=== PATIENT | female | born 1955 | race Caucasian/White ===

== ENCOUNTER 2016-07-05 19:58 | Emergency (ER) | payer MEDICARE, OTHER ==
[~2016-07-05] VITALS: Ht 142.2 cm; Wt 62.0 kg
[~2016-07-05 19:58] MED LIST: AMLO5TAB4 PO; ASPI-664 PO; CARV3.12 PO; CLOP75TA4 PO; CNC30T PO; FOLI-49 PO; GLIP5TAB13 PO; HYDR-3498 PO; HYDR200T39 PO; LEVO100T87 PO; NEPH PO; NITR0.4T6 SL; PANT40TA4 PO; ROSU5TAB5 PO; SEVE800T7 PO
[2016-07-05 20:04] VITALS: Ht 142.2 cm; Wt 62.0 kg
--- NOTE | 2016-07-05 20:49 | RADRPT ---
PROCEDURE: XR Chest AP portable CLINICAL INDICATION: Short of breath TECHNIQUE: An AP portable radiograph of the chest was submitted. COMPARISON: 06/08/2016 FINDINGS: Support Hardware: None Cardiovascular: There is again evidence of previous coronary artery bypass surgery. The heart size is decreased and is now normal. The aorta appears atherosclerotic and the piriform plantar vasculat ure is unremarkable. Lung Moreno: Infiltrate or atelectatic changes again seen within the lower lung zones bilaterally ag ain greater on the left on the right. Pleural Spaces: The left costophrenic angle remains obscured. A small left pleural fluid accumulati on cannot be excluded. There is no pneumothorax. Osseous Structures: The suboptimally visualized osseous elements are grossly intact. Soft Tissues: Endovascular stents are seen within the left innominate vein region and within the lef t axilla. IMPRESSION: 1. Previous coronary artery bypass surgery. 2. Decreased heart size which is now normal with atherosclerotic changes of the aorta again evident . 3. Atelectatic change are in infiltrates again seen within the lung bases, greater on the left on t he right. A small left pleural fluid accumulation can again not be excluded. 4. Endovascular stents are again seen in the left innominate vein and left axilla. Physician Rk Date Time Electronically viewed and signed by Physician Rk on 07/05/2016 20:49 /
[2016-07-05 21:15] LABS: INR 1.5; PROTIME 18.2 Sec (12.2-14.2); PT RATIO 1.4
[2016-07-05 21:16] LABS: PARTIAL THROMBOPLASTIN TIME 39.6 Sec (25.0-35.0)
[2016-07-05 21:20] LABS: CREATININE 5.55 mg/dl (0.44-1.00)
[2016-07-05 21:26] LABS: POTASSIUM 5.4 mmol/L (3.5-5.1)
[2016-07-05 21:29] LABS: BASOPHILS % 0.3 % (0.0-2.0); HEMATOCRIT 34.6 % (37.0-47.0); HEMOGLOBIN 11.5 g/dl (12.0-16.0); LYMPHOCYTES # 2.3 10^3/ul (0.8-2.9); LYMPHOCYTES % 19.6 % (15.0-51.0); MEAN CORPUSCULAR HEMOGLOBIN 30.5 pg (29.0-33.0); MEAN CORPUSCULAR HGB CONC 33.2 g/dl (32.0-37.0); MEAN CORPUSCULAR VOLUME 91.6 fl (82.0-101.0); MEAN PLATELET VOLUME 8.3 fl (7.4-10.4); MONOCYTE # 0.8 10^3/ul (0.3-0.9); MONOCYTES % 6.9 % (0.0-11.0); NEUTROPHIL # 8.4 10^3/ul (1.6-7.5); NEUTROPHILS % 73.2 % (39.0-77.0); PLATELET COUNT 223 10^3/UL (140-440); RED BLOOD COUNT 3.78 10^6/ul (4.20-5.40); RED CELL DISTRIBUTION WIDTH 19.7 % (11.5-14.5); TROPONIN-I 0.041 ng/ml (0.00-0.12); UNCORRECTED WBC 11.5 10^3/ul (4.8-10.8); WHITE BLOOD COUNT 11.5 10^3/ul (4.8-10.8)
[2016-07-05 21:37] LABS: CONDITION 1; LH ANALYZER COMMENTS 1
--- NOTE | 2016-07-05 22:05 | ERD ---
ER Documentation Chief Complaint Date/Time DATE: 07/05/16 TIME: 22:00 Chief Complaint SOB, denies CP, from [facility] BIB RA90 HPI This is a 61-year-old female who presents to the emergency room for evaluation of shortness of breath. She is denying any chest pain at this time, she does state she gets dialysis Wednesday, Wednesday, Wednesday, and is scheduled for dialysis at 4 AM tomorrow Wednesday, 06 July. This patient denies any fevers and came to the ER for evaluation. She does state that she has been drinking a lot of water over the weekend due to the fact that she has been getting lots of medication from her nursing facility. States oxygen helps her shortness of breath and this is happened to her previously and she has been relieved with dialysis. ROS All systems reviewed and are negative except as per history of present illness. Medications Home Meds Active Scripts Carvedilol* (Coreg*) 3.125 Mg Tab, 3.125 MG PO BID, #60 TAB Prov:MARINA ZEPEDA 08/28/15 Hydrocodone Bit-Acetaminophen* ([place]*) 5-325 Mg Tab, 1 TAB PO q6h Y for PAIN, # 30 TAB Prov:LELE STEELE MD 05/21/15 Reported Medications Sevelamer Carbonate* (Renvela*) 800 Mg Tablet, 0.8 GM PO WITH MEALS, #3 TAB 08/16/15 Rosuvastatin Calcium* (Crestor*) 5 Mg Tablet, 5 MG PO QHS, #30 TAB 08/16/15 Pantoprazole* (Pantoprazole*) 40 Mg Tablet.dr, 40 MG PO DAILY, TAB 05/03/15 Nitroglycerin* (Nitroglycerin* SL) 0.4 Mg Tab.subl, 0.4 MG SL Q5MIN Y for CHEST PAIN, BOTTLE 05/03/15 Levothyroxine Sodium* (Levothyroxine Sodium*) 100 Mcg Tablet, 100 MCG PO AC BREAKFAST, TAB 05/03/15 Glipizide* (Glipizide*) 5 Mg Tablet, 5 MG PO DAILY, TAB 05/03/15 Cinacalcet* (Sensipar*) 30 Mg Tab, 30 MG PO, TAB 05/03/15 Multivit/Ca Carb/B Cmplx/Fa* (Loretta-Owen*) 1 Tab Tab, 1 TAB PO DAILY, TAB 05/03/15 Hydroxychloroquine Sulfate* (Hydroxychloroquine Sulfate*) 200 Mg Tablet, 200 MG PO BID, TAB 05/03/15 Folic Acid* (Folic Acid*) 1 Mg Tablet, 1 MG PO DAILY, TAB 05/03/15 Clopidogrel Bisulfate* (Clopidogrel Bisulfate*) 75 Mg Tablet, 75 MG PO DAILY, TAB 05/03/15 Aspirin* (Aspirin* EC) 81 Mg Tablet.dr, 81 MG PO DAILY, TAB 05/03/15 Amlodipine Besylate* (Norvasc*) 5 Mg Tablet, 5 MG PO DAILY, TAB 05/03/15 Allergies Allergies: Coded Allergies: Penicillins (Verified Allergy, Intermediate, ITCHING/RASH, 06/08/16) methotrexate (Verified Allergy, Intermediate, ITCHING/RASH, 06/08/16) PMhx/Soc History of Surgery: Yes Anesthesia Reaction: No (UNKNOWN) Hx Neurological Disorder: No (UNKNOWN) Hx Respiratory Disorders: No (UNKNOWN) Hx Cardiac Disorders: Yes (HTN) Hx Psychiatric Problems: No (UNKNOWN) Hx Miscellaneous Medical Probl: Yes (HTN, DM 2, RENAL FAILURE) Hx Alcohol Use: No (UNKNOWN) Hx Substance Use: No Hx Tobacco Use: Yes Smoking Status: Current some day smoker Physical Exam Vitals Vital Signs Date Time Temp Pulse Resp B/P Pulse Ox O2 Delivery O2 Flow Rate FiO2 07/05/16 20:04 99.1 84 20 155/65 100 Physical Exam INITIAL VITAL SIGNS: Reviewed by me GENERAL: The patient is well developed, appears to be in mild respiratory distress when she is not on oxygen however on nasal cannula appears to be in no acute distress HEENT: Pupils equal, round, and reactive to light. EOMI. There is no scleral icterus. NECK: C-spine is soft and supple, there is no meningismus. There is no cervical lymphadenopathy. LUNGS: Bilateral rales auscultated in the lower lobes HEART: Regular rate and rhythm, no murmurs, clicks, rubs or gallops. ABDOMEN: Soft, non-tender, non-distended. There are bowel sounds in all four quadrants. No rebound or guarding. EXTREMITIES: There is no peripheral cyanosis or edema. No focal swelling or erythema. NEUROLOGICAL: The patient moves all four extremities with 5/5 strength. Cranial nerves II - XII are intact. Normal gait. Alert and oriented SKIN: There is no apparent rash or petechiae. HEME/LYMPHATIC: There is no evidence of excessive bruising or lymphedema. PSYCHIATRIC: The patient does not appear anxious or depressed. Result Diagram: 07/05/16205507/05/162055 Results 24 hrs Laboratory Tests Test 07/05/16 20:56 Activated Partial Thromboplast Time 39.6Sec Anion Gap 28 Basophils # 0.010^3/ul Basophils % 0.3% Blood Morphology Comment Blood Urea Nitrogen 72mg/dl Calcium Level 11.0mg/dl Carbon Dioxide Level 25mmol/L Chloride Level 93mmol/L Creatinine 5.55mg/dl Eosinophils # 0.010^3/ul Eosinophils % 0.0% Glucose Level 134mg/dl Hematocrit 34.6% Hemoglobin 11.5g/dl INR International Normalized Ratio 1.50 Lymphocytes # 2.310^3/ul Lymphocytes % 19.6% Mean Corpuscular Hemoglobin 30.5pg Mean Corpuscular Hemoglobin Concent 33.2g/dl Mean Corpuscular Volume 91.6fl Mean Platelet Volume 8.3fl Monocytes # 0.810^3/ul Monocytes % 6.9% Neutrophils # 8.410^3/ul Neutrophils % 73.2% Nucleated Red Blood Cells # 0.010^3/ul Nucleated Red Blood Cells % 0.0/100WBC Platelet Count 24436^3/UL Potassium Level 5.4mmol/L Prothrombin Time 18.2Sec Prothrombin Time Ratio 1.4 Red Blood Count 3.7810^6/ul Red Cell Distribution Width 19.7% Sodium Level 141mmol/L Troponin I 0.041ng/ml White Blood Count 11.510^3/ul Procedures/MDM EKG: Rate/Rhythm: [First-degree AV block] QRS, ST, T-waves: [No changes consistent w/ acute ischemia] Impression: First-degree AV block Chest X-ray 1V Interpreted by me: Soft Tissue: Atelectatic changes in the bilateral lower lobes, left-sided pleural effusion Bones: No acute abnormalities Mediastinum/Cardiac Silhouette/Lungs: [No acute abnormalities] This 61-year-old female presents to the emergency room for evaluation of shortness of breath. She does undergo dialysis Wednesday, Wednesday, Wednesday. She did undergo dialysis finances that she drink too much water due to too much medications. The patient did appear to have mild respiratory distress when she is off of oxygen, she is now scheduled for dialysis until 4 AM on July 06. I did try this patient off of oxygen and she was not tolerating it. I feel that her symptoms will be relieved with dialysis that she is fluid overloaded. This patient will be kept in the emergency room on oxygen until it is time for dialysis at that point she will be discharged with her family member will drive her to her dialysis center for further care Departure Diagnosis: Primary Impression: Shortness of breath Additional Impressions: Respiratory distress Fluid overload Condition: Stable CEM NAQVI DO Jul 05, 2016 22:05
[2016-07-05 22:08] VITALS: RESP 24
[2016-07-06 02:31] VITALS: BP 124/96; PULSE 80; TEMP 98.5
== END 2016-07-06 03:18 | disposition home or self-care (01) ==
LOC: E/R 19:58
DX: R06.02 Shortness of breath (principal); E87.70 Fluid overload, unspecified; E11.9 Type 2 diabetes mellitus without complications; I10 Essential (primary) hypertension; F17.210 Nicotine dependence, cigarettes, uncomplicated; Z79.82 Long term (current) use of aspirin; Z79.84 Long term (current) use of oral hypoglycemic drugs; Z99.2 Dependence on renal dialysis
CPT/HCPCS: 36415; 71010; 80048; 84484; 85025; 85610; 85730; 93005

== ENCOUNTER 2016-08-03 04:26 | Inpatient (IN) | payer MEDICARE, OTHER ==
[2016-08-03] VITALS (20 sets, daily range): BP systolic 108–133; BP diastolic 41–58; PULSE 49–82; RESP 13–25; TEMP 99.1; Ht 152.4 cm; Wt 61.0 kg
[~2016-08-03] VITALS: Ht 152.4 cm; Wt 61.0 kg
[2016-08-03] MEDS ORDERED: NITROGLYCERIN 2% 1 GM OINT PKT TD STA (04:28)
--- NOTE | 2016-08-03 05:04 | ERA ---
ER Documentation Chief Complaint Date/Time DATE: 08/03/16 TIME: 05:02 Chief Complaint CEDRIC [place] from dialysis center HPI This is a 61-year-old female comes in with complaints of shortness of breath dialysis center. She tolerated 30 minutes of dialysis before they called 911. Patient denies any chest pain. Denies any nausea vomiting. Denies any other current complaints. ROS All systems reviewed and are negative except as per history of present illness. Medications Home Meds Active Scripts Carvedilol* (Coreg*) 3.125 Mg Tab, 3.125 MG PO BID, #60 TAB Prov:MARINA ZEPEDA 08/28/15 Hydrocodone Bit-Acetaminophen* ([place]*) 5-325 Mg Tab, 1 TAB PO q6h Y for PAIN, # 30 TAB Prov:LELE STEELE MD 05/21/15 Reported Medications Sevelamer Carbonate* (Renvela*) 800 Mg Tablet, 0.8 GM PO WITH MEALS, #3 TAB 08/16/15 Rosuvastatin Calcium* (Crestor*) 5 Mg Tablet, 5 MG PO QHS, #30 TAB 08/16/15 Pantoprazole* (Pantoprazole*) 40 Mg Tablet.dr, 40 MG PO DAILY, TAB 05/03/15 Nitroglycerin* (Nitroglycerin* SL) 0.4 Mg Tab.subl, 0.4 MG SL Q5MIN Y for CHEST PAIN, BOTTLE 05/03/15 Levothyroxine Sodium* (Levothyroxine Sodium*) 100 Mcg Tablet, 100 MCG PO AC BREAKFAST, TAB 05/03/15 Glipizide* (Glipizide*) 5 Mg Tablet, 5 MG PO DAILY, TAB 05/03/15 Cinacalcet* (Sensipar*) 30 Mg Tab, 30 MG PO, TAB 05/03/15 Multivit/Ca Carb/B Cmplx/Fa* (Loretta-Owen*) 1 Tab Tab, 1 TAB PO DAILY, TAB 05/03/15 Hydroxychloroquine Sulfate* (Hydroxychloroquine Sulfate*) 200 Mg Tablet, 200 MG PO BID, TAB 05/03/15 Folic Acid* (Folic Acid*) 1 Mg Tablet, 1 MG PO DAILY, TAB 05/03/15 Clopidogrel Bisulfate* (Clopidogrel Bisulfate*) 75 Mg Tablet, 75 MG PO DAILY, TAB 05/03/15 Aspirin* (Aspirin* EC) 81 Mg Tablet.dr, 81 MG PO DAILY, TAB 05/03/15 Amlodipine Besylate* (Norvasc*) 5 Mg Tablet, 5 MG PO DAILY, TAB 05/03/15 Allergies Allergies: Coded Allergies: Penicillins (Verified Allergy, Intermediate, ITCHING/RASH, 06/08/16) methotrexate (Verified Allergy, Intermediate, ITCHING/RASH, 06/08/16) PMhx/Soc History of Surgery: Yes Anesthesia Reaction: No Hx Neurological Disorder: No Hx Respiratory Disorders: Yes (broncitis) Hx Cardiac Disorders: Yes (HTN,dyslipidemia,CAD w/ stents) Hx Psychiatric Problems: No Hx Miscellaneous Medical Probl: Yes (DM 2, RENAL FAILURE,lupus,hypothyroidism, HD MWF) Hx Alcohol Use: No Hx Substance Use: No Hx Tobacco Use: Yes Smoking Status: Former smoker Physical Exam Vitals Vital Signs Date Time Temp Pulse Resp B/P Pulse Ox O2 Delivery O2 Flow Rate FiO2 08/03/16 04:49 98 100 08/03/16 04:32 Non Rebreather 08/03/16 04:30 98.3 108 18 135/63 92 Physical Exam Const: [] Head: Atraumatic Eyes: Normal Conjunctiva ENT: Normal External Ears, Nose and Mouth. Neck: Full range of motion..~ No meningismus. Resp: Clear to auscultation bilaterally Cardio: Regular rate and rhythm, no murmurs Abd: Soft, non tender, non distended. Normal bowel sounds Skin: No petechiae or rashes Back: No midline or flank tenderness Ext: No cyanosis, or edema Neur: Awake and alert Psych: Normal Mood and Affect Results 24 hrs Current Medications Medications (Trade) Dose Ordered Sig/Jerry Route PRN Reason Start Time Stop Time Status Last Admin Dose Admin Nitroglycerin (Nitroglycerin 2% Oint) 1 inch ONCE STAT TD 08/03/16 04:28 08/03/16 04:30 DC Procedures/MDM EKG: Rate/Rhythm: [Normal Sinus Rhythm] QRS, ST, T-waves: [No changes consistent w/ acute ischemia] Impression: [No evidence of ischemia or arrhythmia] Chest X-ray 1V Interpreted by me: Soft Tissue: No acute abnormalities Bones: No acute abnormalities Mediastinum/Cardiac Silhouette/Lungs: Increased interstitial fluid markings. Impression: CHF Medical decision-making:Patient's heart failure symptoms is concerning for acute decompensation and will require inpatient workup and monitoring. Further w/u for ischemia, arrhythmia, PE or dissection will be deferred to the inpatient team. Accepting Care Team: Current data and ongoing care discussed. Time: 5 am Primary Provider: Dr. Mcdaniel who is on-call for Dr. Jimenez Consulting: [XOXOXO] Outstanding Data: none Critical Care: Time: 45 minutes Treatments/Evaluations: Close monitoring and treatment of unstable vital signs, cardiorespiratory, and neurologic status, while maintaining tight balance of fluid, respiratory, and cardiac interventions. Departure Diagnosis: Primary Impression: Pulmonary edema Qualified Code: J81.0 - Acute pulmonary edema Condition: Stable KATH OTTO Aug 03, 2016 05:04
--- NOTE | 2016-08-03 05:13 | RADRPT ---
PROCEDURE: Chest. CLINICAL INDICATION: Shortness of breath. TECHNIQUE: Single frontal view of the chest was obtained. COMPARISON: 07/05/2016. FINDINGS: Mediasternotomy wires are present. The cardiac silhouette is enlarged. The aortic arch is calcifie d. There are increased interstitial markings bilaterally. There is no pleural effusion. There is no pneumothorax. IMPRESSION: Bilateral increased interstitial markings could represent interstitial edema or infiltrates, increas ed compared with the prior study. Cardiomegaly and aortic atherosclerosis. .Raimundo To MD, MD Date Time Electronically viewed and signed by .Raimundo To MD, on 08/03/2016 05:13 .T/
[2016-08-03 05:55] LABS: BASOPHILS % 0.1 % (0.0-2.0); HEMATOCRIT 38.6 % (37.0-47.0); HEMOGLOBIN 13.1 g/dl (12.0-16.0); LYMPHOCYTES # 0.9 10^3/ul (0.8-2.9); LYMPHOCYTES % 9.5 % (15.0-51.0); MEAN CORPUSCULAR HEMOGLOBIN 31.4 pg (29.0-33.0); MEAN CORPUSCULAR VOLUME 92.3 fl (82.0-101.0); MEAN PLATELET VOLUME 8.8 fl (7.4-10.4); MONOCYTE # 0.6 10^3/ul (0.3-0.9); MONOCYTES % 5.9 % (0.0-11.0); NEUTROPHIL # 7.9 10^3/ul (1.6-7.5); NEUTROPHILS % 84.5 % (39.0-77.0); PLATELET COUNT 155 10^3/UL (140-440); RED BLOOD COUNT 4.18 10^6/ul (4.20-5.40); RED CELL DISTRIBUTION WIDTH 18.7 % (11.5-14.5); UNCORRECTED WBC 9.4 10^3/ul (4.8-10.8); WHITE BLOOD COUNT 9.4 10^3/ul (4.8-10.8)
[2016-08-03 05:57] LABS: CONDITION 1; LH ANALYZER COMMENTS 1
[2016-08-03 06:00] LABS: INR 1.5; PROTIME 18.2 Sec (12.2-14.2); PT RATIO 1.4
[2016-08-03 06:01] LABS: PARTIAL THROMBOPLASTIN TIME 36.4 Sec (25.0-35.0)
[2016-08-03 06:09] LABS: AADO2 Arterial 388.7 mmHg (7.0-24.0); Allen Test ACCEPTAB; Arterial Base Excess 4.4 mmol/L (-3.0-3); Arterial COHb 0.2 % (0.0-3.0); Arterial Fraction of Oxyhgb 98.9 % (93.0-99.0); Arterial HCO3 26.4 mmol/L (22.0-26.0); Arterial MetHb 0.2 % (0.0-1.5); Arterial Total Hemglobin 12.7 g/dl (12.0-18.0); Blood Gas IEPAP 18/5; Blood Gas PS 13; MODE MASK - BIPAP
[2016-08-03 06:14] LABS: TROPONIN-I 0.092 ng/ml (0.00-0.12)
[2016-08-03 06:42] LABS: ALBUMIN 3.5 g/dl (3.3-4.9); POTASSIUM 3.8 mmol/L (3.5-5.1)
[2016-08-03 06:44] LABS: CREATININE 4.51 mg/dl (0.44-1.00)
[2016-08-03 06:45] LABS: ALBUMIN/GLOBULIN RATIO 0.81; TOTAL PROTEIN 7.8 g/dl (6.1-8.1)
[2016-08-03 06:46] LABS: CALCIUM 8.4 mg/dl (8.4-10.2)
[2016-08-03] MEDS ORDERED: PROPOFOL 200 MG INJ ONE (07:00)
[2016-08-03] MEDS ORDERED: DEXTROSE 50% 50 ML SYRINGE ONE (09:46)
[2016-08-03] MEDS ORDERED: DEXTROSE 50% 50 ML SYRINGE IV ONE (10:00)
[2016-08-03] MEDS ORDERED: LORAZEPAM 2 MG INJ IV ONE (12:00)
[2016-08-03] MEDS ORDERED: GLUCAGON 1 MG INJ IM PRN (13:00)
[2016-08-03] MEDS ORDERED: VANCOMYCIN IV PER PHARMACY XX SCH (13:00)
[2016-08-03] MEDS ORDERED: DOCUSATE SODIUM 100 MG CAP PO PRN (13:00)
[2016-08-03] MEDS ORDERED: GLUCOSE GEL 15 GRAM TUBE BUCCAL PRN (13:00)
[2016-08-03] MEDS ORDERED: GLUCOSE GEL 15 GRAM TUBE PO PRN ×2 (13:00)
[2016-08-03] MEDS ORDERED: AZTREONAM 1 GM/NS (PMX) 50 ML IVPB SCH (13:00)
[2016-08-03] MEDS ORDERED: NITROGLYCERIN (SL) 0.4 MG TAB SL PRN (13:00)
[2016-08-03] MEDS ORDERED: NACL 0.9% 3 ML SYG IV SCH (13:00)
[2016-08-03] MEDS ORDERED: ONDANSETRON 4 MG INJ IV PRN (13:00)
[2016-08-03] MEDS ORDERED: VANCOMYCIN 1.25 GM in SOD CHLORIDE 0.9% 250 ML IVPB ONE (13:30)
--- NOTE | 2016-08-03 13:53 | HP ---
DATE OF ADMISSION: 08/03/2016 CHIEF COMPLAINT: Shortness of breath developed during hemodialysis. HISTORY OF PRESENT ILLNESS: The patient is a 61-year-old female known to me from previous admission . The patient with history of end-stage renal disease, hemodialysis dependent. The patient has his tory of lupus, diabetes, hypertension, peripheral vascular disease and history of sternal wound infe ction requiring wound VAC and debridement per last admission. The patient is a resident of [facility] facility. The patient was sent from hemodialysis center. The patient tolerated 30 minutes of hemodialysis and developed shortness of breath and was brought by ambulance to [facility] Emergency Room. The patient was started on BiPAP. Patient's chest x-ray revealed bilate ral increased interstitial markings which could represent interstitial edema and infiltrates, increa sed compared with the prior study, cardiomegaly and aortic atherosclerosis. The patient did not hav e any leukocytosis. The patient's temperature on admission was 99.1. The patient will be admitted for further evaluation and management to telemetry floor. PAST MEDICAL HISTORY: Per HPI. PAST SURGICAL HISTORY: Status post right upper extremity arteriovenous fistula, status post sternot tali possible CABG, details are not available in 2016 and status post debridement of sternal wound. FAMILY HISTORY: Noncontributory. SOCIAL HISTORY: Patient is a resident of [facility] facility. The patient denies any recent t obacco use, alcohol use or illicit drug use. ALLERGIES: PATIENT IS ALLERGIC TO: 1. PENICILLIN. 2. ANTIBIOTICS 3. METHOTREXATE. HOME MEDICATIONS: Includes: 1. Coreg. 2. [place]. 3. Renvela. 4. Crestor. 5. Protonix. 6. Nitroglycerin. 7. Levothyroxine. 8. Glipizide. 9. Sensipar. 10. Loretta-Owen. 11. Hydroxychloroquine. 12. Folic acid. 13. Plavix. 14. Aspirin 15. Norvasc. REVIEW OF SYSTEMS: A 12-point review of systems is negative unless what mentioned in the HPI. PHYSICAL EXAMINATION: GENERAL: Well-developed, well-nourished elderly female currently is lethargic, but easily arousable , awake alert to name and situation. VITAL SIGNS: Temperature is 99.1, pulse 87, blood pressure is 126/53, respiratory rate 26, oxygen s aturation is 100% on 50% nonrebreather mask. HEENT: Head is atraumatic, normocephalic. Pupils equal, round, reactive to light and accommodation . Oral mucosa is pink and moist. NECK: Supple, no cervical lymphadenopathy, no thyromegaly. CHEST: Lungs with diminished air entry bilaterally, inspiratory wheezes bilaterally and scattered r honchi. CARDIOVASCULAR: Normal S1, S2. No murmurs, gallops, clicks, rubs noted. ABDOMEN: Round, soft, nondistended, nontender. EXTREMITIES: Mild edema. No clubbing, cyanosis. Right upper extremity with arteriovenous fistula with palpable thrill and audible bruit. SKIN: There is no rash, petechiae noted. NEUROLOGIC: Patient is lethargic but easily arousable. No focal deficits noted. No focal deficits noted. Motor strength 5/5 in all extremities. LABORATORY DATA: On admission, CBC: White blood cells 9.4, hemoglobin 13.1, hematocrit 38.6, plate lets 155. Chemistry: Sodium 137, potassium 3.8, chloride 88, carbon dioxide 30, anion gap 23, BUN is 46, creatinine 4.51, glucose 98. ASSESSMENT: 1. Acute respiratory distress secondary to pulmonary edema and possible infiltrates. We will ask Christopher Morrissey to see patient in pulmonology consultation. Continue nonrebreather mask. Admit patient to telemetry, continue bronchodilators and oxygen supplementation. 2. Possible healthcare-acquired pneumonia. We will start patient on imipenem and vancomycin. 3. End-stage renal disease. We will ask Dr. Betts to see patient in nephrology consultation. Co ntinue to remove fluids with hemodialysis. 4. Diabetes mellitus with patient being hypoglycemic in the emergency room. Continue to monitor bl ood sugar closely. Patient is currently hypotensive. 5. Possible sepsis. Will obtain lactate. 6. Coronary artery disease. Continue Plavix and aspirin. 7. Lupus by history. Continue Plaquenil. 8. Hypothyroidism. We will obtain TSH. Continue Synthroid. 9. Hyperlipidemia. Continue Crestor. We will continue sequential compression device for deep veno us thrombosis prophylaxis and Protonix for peptic ulcer disease prophylaxis. Further recommendation s based on clinical course. Plan of care discussed with Dr. Hobbs. Dictated By: MARINA ZEPEDA FUNERAL ATTENDANT for VERENA HOBBS MD SR/NTS Conf#: [id number] [facility]#: [id number]
[2016-08-03] MEDS: AZTREONAM 0.5 GM in SOD CHLORIDE 0.9% 50 ML IV SCH (14:39)
--- NOTE | 2016-08-03 15:29 | CONS ---
DATE OF ADMISSION: 08/03/2016 DATE OF CONSULTATION: 08/03/2016 REASON FOR CONSULTATION: End-stage renal disease, shortness of breath. PHYSICIAN REQUESTING CONSULT: Dr. Rojo. HISTORY OF PRESENT ILLNESS: This is a 61-year-old female with a past medical history of end-stage r enal disease on dialysis Wednesday, Wednesday, Wednesday, history of lupus, diabetes, hypertension who pre sents to [facility] with shortness of breath. The patient was in the dialysis uni t when she became short of breath as a result after 30 minutes dialysis was canceled and the patient was transferred to the [facility] Emergency Room for evaluation. Upon arrival, the patien t had a chest x-ray performed which showed findings of increased interstitial markings representing possible edema or infiltrates. The patient's vitals on admission showed a blood pressure of 135/63, temperature 99. In the emergency room, the patient was also noted to be hypoglycemic with glucose level of 30. She was given dextrose as well as nitroglycerin paste. Upon my evaluation of the patient at this time, she is currently lethargic on nasal cannula. She is able to answer simple questions. She denies currently any nausea, vomiting, dysuria, hematuria, he moptysis, hematochezia. PAST MEDICAL HISTORY: As stated above, history of hypertension, history of lupus, end-stage renal d isease, diabetes, peripheral vascular disease, hypothyroidism. PAST SURGICAL HISTORY: Status post right and left upper extremity AV fistula. SOCIAL HISTORY: Does not drink, smoke or do drugs. FAMILY HISTORY: Noncontributory. MEDICATIONS: Have been reviewed. ALLERGIES: PATIENT IS ALLERGIC TO: 1. METHOTREXATE. 2. PENICILLIN. REVIEW OF SYSTEMS: A 14-point review of systems was conducted. Pertinent positives stated in HPI, otherwise negative. PHYSICAL EXAMINATION: VITAL SIGNS: Blood pressure is 135/76, respiration is 18, temperature 98.6. HEENT: Head is normocephalic. NECK: Supple. HEART: Regular rate. LUNGS: Show diminished breath sounds at the base. Positive rhonchi. ABDOMEN: Soft and nontender to palpation. No rebound or guarding. EXTREMITIES: Negative for clubbing, cyanosis. No edema. DERMATOLOGIC: No rashes. MUSCULOSKELETAL: No joint effusions. The patient does have an AV fistula in the right upper extrem ity with positive thrill and bruit and left upper extremity with positive thrill and bruit. NEUROLOGIC: No focal deficits. LABORATORY DATA: Shows a white count 9.4, hemoglobin 13.1, hematocrit 38.6, platelet count 155. So dium 137, potassium 3.8, chloride 88, BUN 46, creatinine 4.51, glucose level was 30, patient's ABG w as reviewed, shows a pH 7.54, pCO2 of 31. Chest x-ray as stated in HPI. ASSESSMENT AND PLAN: This is a 61-year-old female who presents with: 1. End-stage renal disease. The patient is on dialysis Wednesday, Wednesday, Wednesday with access of le ft upper extremity AV fistula. The patient's last full hemodialysis was Wednesday. The patient has on ly received 30 minutes of dialysis today at dialysis unit. Plan is to order hemodialysis today for 3 hours, 3 K bath, calcium 2.5, we will ultrafiltrate as tolerated. 2. Volume overload. The patient's chest x-ray shows possible interstitial edema. Plan is for dial ysis today with a goal ultrafiltration of 2 to 3 liters. 3. Mineral bone disorder. We will monitor calcium and phosphorus levels. We will continue the pat ient on Sensipar and phosphate binders. 4. Anemia of end-stage renal disease. Monitor H and H levels. We will give Epogen with hemodialys is. 5. Acute hypoxemic respiratory failure. Etiology is multifactorial, possibly due to edema, possibl e pneumonia. The patient is currently on broad spectrum antibiotics. We will continue. We will ul trafiltrate with hemodialysis as stated above, we will follow up cultures. 6. Diabetes, continue Accu-Cheks and sliding scale. 7. History of coronary artery disease. Continue current medical management. 8. History of lupus. Continue Plaquenil. 9. Hypothyroidism. Continue Synthroid. 10. Dyslipidemia. Continue statin therapy. Thank you, Dr. Rojo, for this interesting consultation. It will be a pleasure to follow patient with you throughout the hospital course. Dictated By: DELPHINE PURI/NTS Conf#: [id number] DID#: [id number]
--- NOTE | 2016-08-03 15:57 | CONS ---
DATE OF ADMISSION: 08/03/2016 DATE OF CONSULTATION: 08/03/2016 TYPE OF CONSULTATION: Pulmonary. REASON FOR CONSULTATION: Shortness of breath. Thank you, Dr. Rojo, for this consultation. HISTORY OF PRESENT ILLNESS: This is a 61-year-old lady with previous admissions to [facility] with a history of end-stage renal failure on hemodialysis, lupus, diabetes, hypertensio n, hyperlipidemia, and infected sternal wound came in with increasing shortness of breath, orthopnea during hemodialysis today with significant hypoxemia. Chest x-ray showed significant pulmonary edema. She was started on noninvasive positive pressure ventilation in our emergency room. PAST MEDICAL HISTORY: As above includes coronary artery bypass graft surgery with sternal wound inf ection. ALLERGIES: 1. PENICILLIN. 2. METHOTREXATE. SOCIAL HISTORY: She is a nonsmoker, no alcohol, no history of drug use. FAMILY HISTORY: Noncontributory. SYSTEMS REVIEW: A 12-point review of systems was negative other than that mentioned above. PHYSICAL EXAMINATION: GENERAL: Well-nourished, well-developed lady, comfortable at rest on BiPAP. VITAL SIGNS: Currently afebrile. Pulse is 85, blood pressure 123/53, O2 saturation 96% on 2 L nasa l cannula. NECK: Supple. No JVD or lymphadenopathy. CARDIAC: S1, S2, no added sounds or murmurs. CHEST: Diminished air entry bilaterally. ABDOMEN: Soft, nontender. No guarding or rebound. EXTREMITIES: No cyanosis, clubbing, edema. NEUROLOGIC: Generalized weakness. LABORATORY DATA: White count 9.4, hemoglobin 13.1, platelets 155, BUN 46, creatinine 4.51. ABG: p H 7.54, pCO2 of 31, PaO2 of 293. INR 1.1. DIAGNOSTIC DATA: Chest x-ray shows pulmonary edema. EKG shows no acute ischemic changes. IMPRESSION AND PLAN: 1. Acute hypoxemic respiratory failure, likely secondary to volume overload. 2. End-stage renal failure on hemodialysis. 3. History of coronary artery disease, questionable coronary ischemia. 4. History of diabetes. 5. History of hypertension. Patient will require: 1. Emergent hemodialysis with volume removal. 2. Noninvasive positive pressure ventilation. 3. Hypoxemic respiratory failure secondary to pulmonary edema. 4. Cardiology recommendations with echocardiogram and possible reevaluation of coronary grafts. 5. DVT and GI prophylaxis. Dictated By: JOY SANTOS/SAHRA Conf#: [id number] DID#: [id number]
[2016-08-03] MEDS: DEXTROSE 50% 50 ML SYRINGE IV PRN (16:19)
[2016-08-03] MEDS ORDERED: PROPOFOL 100 ML ONE (17:37)
[2016-08-03] MEDS: SEVELAMER CARBONATE 0.8 GM PKT PO SCH (18:00)
[2016-08-03] MEDS ORDERED: PROPOFOL 200 MG INJ IV ONE (18:00)
[2016-08-03] MEDS ORDERED: PROPOFOL 100 ML IV ONE (18:00)
[2016-08-03] MEDS: INSULIN ASPART [NOVOLOG] 3 ML PEN SC SCH ×2 (18:00→21:00)
[2016-08-03 18:23] LABS: AADO2 Arterial 138.9 mmHg (7.0-24.0); Arterial Base Excess 5.2 mmol/L (-3.0-3); Arterial COHb 0.4 % (0.0-3.0); Arterial Fraction of Oxyhgb 95.5 % (93.0-99.0); Arterial HCO3 30.6 mmol/L (22.0-26.0); Arterial MetHb 0.2 % (0.0-1.5); Arterial Total Hemglobin 12.8 g/dl (12.0-18.0); MODE VENT - AC
--- NOTE | 2016-08-03 19:28 | RADRPT ---
PROCEDURE: XR Chest. CLINICAL INDICATION: Post intubation. TECHNIQUE: Portable AP view of the chest was obtained. COMPARISON: 08/03/2016 FINDINGS: The cardiomediastinal silhouette is enlarged. Distal tip of the new endotracheal tube is projecting approximately 2.7 cm above the mukund. Bilateral basilar dominant atelectasis, pulmonary vascular congestion and small pleural effusions are again noted. Sternotomy wires compatible with prior CABG are again seen. Calcification of the aorta is visualized. RPTAT:HJJR IMPRESSION: 1. Distal tip of the new endotracheal tube is in satisfactory radiographic position approximately 2 .7 cm above the mukund. 2. Otherwise no interval change in diffuse pulmonary edema/infiltrates in this patient who is statu s post CABG. Physician Karrie Date Time Electronically viewed and signed by Physician Karrie on 08/03/2016 19:28 /
[2016-08-03] MEDS ORDERED: ACETAMINOPHEN 500 MG TAB PO PRN (20:00)
[2016-08-03] MEDS: ALBUMIN HUMAN 25% 100 ML IV PRN (20:53)
[2016-08-03] MEDS ORDERED: HEPARIN 5,000 UNIT/0.5 ML SYG SC SCH (21:00)
[2016-08-03] MEDS: SODIUM CHLORIDE 23.4% 77 MEQ in DEXTROSE 10% 1,000 ML IV SCH (21:22)
[2016-08-03] MEDS: PROPOFOL 100 ML IV SCH (21:24)
--- NOTE | 2016-08-03 22:02 | EN ---
Date/Time of Note Date/Time of Note DATE: 08/03/16 TIME: 21:59 Event Note Medicine Medicine Event Note Patient had been admitted to the hospital for respiratory failure and end-stage renal failure and was awaiting dialysis when her respiratory failure progressed to the point where she needed intubation. I was asked to intubate the patient. When they arrived to the room she was on BiPAP but was somnolent. She was difficult to arouse and clearly needed to be intubated to protect her airway. We immediately set up for intubation. Given the fact that she was a renal failure patient may decide use propofol for induction. Endotracheal Intubation by me: Pre assessment performed. See preceding note for details. Pre-oxygenation performed with 100% oxygen RSI: Performed w/o complication or hypoxic events. Medications as ordered. Blade: Mac 3 ET Tube: 7 cm Depth: 20 cm at the lip Intubation confirmed by colorimetric CO2, equal breath sounds, quiet over the stomach. Chest X-ray 1V Interpreted by me: 3 cm above the mukund ET tube. Normal soft tissue, No pneumothorax. Overall patient received 150 mg of propofol IV for induction. A propofol drip was ordered and titrated per protocol for the ventilator. Further treatment and evaluation was deferred per the admitting physician. JEFFRY ROCA Aug 03, 2016 22:02
[2016-08-04] VITALS (54 sets, daily range): BP systolic 93–157; BP diastolic 25–60; PULSE 62–120; RESP 14–42
--- NOTE | 2016-08-04 00:42 | RADRPT ---
AMENDMENT: 08/04/2016 12:45:09 AM Rod Iraheta MD ADDENDUM: COMPARISON: 08/03/2016 PROCEDURE: XR Chest. CLINICAL INDICATION: Nasogastric tube placement. TECHNIQUE: Single frontal view of the chest was obtained COMPARISON: None FINDINGS: Cardiomegaly and atherosclerotic calcifications in the thoracic aorta. Endotracheal intubation is s een with tip about 15 mm above the mukund. Nasogastric tube is seen with tip and side port off james om of the film. Bilateral patchy air space disease is increased over the interval. Discoid atelectasis versus dense consolidation in the left mid lung is likely without significant change. There is no pleural effusion or pneumothorax. Demineralization limits evaluation of fine osseous detail. Vascular stent in the region of the left axilla IMPRESSION: 1. Endotracheal intubation is again seen with tip about 15 mm above the mukund. 2. New nasogastric tube in place with tip and side port off the bottom of the film. 3. Cardiomegaly, with increased moderate failure. RPTAT: UU Physician Mariah Date Time Electronically viewed and signed by Physician Mariah on 08/04/2016 00:45 RS/
[2016-08-04] MEDS: HYDROXYCHLOROQUINE 200 MG TAB PO SCH ×3 (00:55→20:52)
[2016-08-04] MEDS: AZTREONAM 0.5 GM in SOD CHLORIDE 0.9% 50 ML IV SCH ×3 (00:56→20:51)
[2016-08-04] MEDS: ATORVASTATIN 20 MG TAB PO SCH ×2 (00:56→20:52)
[2016-08-04] MEDS: HEPARIN 5,000 UNIT/0.5 ML SYG SC SCH ×3 (00:58→20:56)
[2016-08-04] MEDS: PROPOFOL 100 ML IV SCH ×2 (03:44→20:58)
[2016-08-04] MEDS: PANTOPRAZOLE 40 MG INJ IV SCH (05:54)
[2016-08-04] MEDS ORDERED: PANTOPRAZOLE (EC) 40 MG TAB PO SCH (06:00)
--- NOTE | 2016-08-04 06:37 | RADRPT ---
PROCEDURE: XR Chest. CLINICAL INDICATION: Pneumonia TECHNIQUE: Portable single view of the chest COMPARISON: 06/03 FINDINGS: Endotracheal tube is 1.8 cm above the mukund and below the level of the clavicles. Nasogastric tube courses in the stomach off the radiographic field. Cardiomegaly, aortic calcification, pulmonary v ascular congestion, and bilateral alveolar infiltrates or edema are unchanged. IMPRESSION: No significant interval change. RPTAT: HLBE Gabriella Antoine Physician Date Time Electronically viewed and signed by Gabriella Antoine Physician on 08/04/2016 06:37 LE/
[2016-08-04 06:40] LABS: BASOPHILS % 0.1 % (0.0-2.0); HEMATOCRIT 33.8 % (37.0-47.0); HEMOGLOBIN 11.3 g/dl (12.0-16.0); LYMPHOCYTES # 1.7 10^3/ul (0.8-2.9); LYMPHOCYTES % 17.5 % (15.0-51.0); MEAN CORPUSCULAR HEMOGLOBIN 31.1 pg (29.0-33.0); MEAN CORPUSCULAR HGB CONC 33.5 g/dl (32.0-37.0); MEAN PLATELET VOLUME 8.3 fl (7.4-10.4); MONOCYTE # 0.6 10^3/ul (0.3-0.9); MONOCYTES % 6.3 % (0.0-11.0); NEUTROPHIL # 7.3 10^3/ul (1.6-7.5); NEUTROPHILS % 76.1 % (39.0-77.0); PLATELET COUNT 137 10^3/UL (140-440); RED BLOOD COUNT 3.63 10^6/ul (4.20-5.40); RED CELL DISTRIBUTION WIDTH 18.1 % (11.5-14.5); UNCORRECTED WBC 9.5 10^3/ul (4.8-10.8); WHITE BLOOD COUNT 9.5 10^3/ul (4.8-10.8)
[2016-08-04 06:56] LABS: PHOSPHORUS 2.8 mg/dl (2.5-4.9)
[2016-08-04 07:01] LABS: CREATININE 2.75 mg/dl (0.44-1.00)
[2016-08-04 07:02] LABS: CALCIUM 9.2 mg/dl (8.4-10.2)
[2016-08-04] MEDS: DEXTROSE 50% 50 ML SYRINGE IV PRN ×4 (07:09→22:47)
[2016-08-04 07:16] LABS: CONDITION 1; LH ANALYZER COMMENTS 1
[2016-08-04 07:27] LABS: THYROID STIMULATING HORMONE 3.21 MIU/L (0.465-4.680)
[2016-08-04] MEDS: INSULIN ASPART [NOVOLOG] 3 ML PEN SC SCH ×4 (07:35→20:41)
[2016-08-04 07:53] LABS: AADO2 Arterial 108.6 mmHg (7.0-24.0); Allen Test ACCEPTAB; Arterial Base Excess 7.5 mmol/L (-3.0-3); Arterial COHb 0.1 % (0.0-3.0); Arterial HCO3 31.7 mmol/L (22.0-26.0); Arterial MetHb 0.2 % (0.0-1.5); Arterial Total Hemglobin 11.3 g/dl (12.0-18.0); MODE VENT - AC
[2016-08-04] MEDS ORDERED: POTASSIUM CHLORIDE 250 ML IVPB ONE (08:00)
[2016-08-04] MEDS: MULTIVIT/CA CARB/B CMPLX/FA TAB PO SCH (08:28)
[2016-08-04] MEDS: ASPIRIN 81 MG TAB PO SCH (08:28)
[2016-08-04] MEDS: LEVOTHYROXINE 100 MCG TAB PO SCH (08:28)
[2016-08-04] MEDS: SEVELAMER CARBONATE 0.8 GM PKT PO SCH ×3 (08:28→18:28)
[2016-08-04] MEDS: CLOPIDOGREL 75 MG TAB PO SCH (08:28)
[2016-08-04] MEDS ORDERED: glipiZIDE 5 MG TAB PO SCH (09:00)
--- NOTE | 2016-08-04 11:29 | CONS ---
Date/Time of Note Date/Time of Note DATE: 08/04/16 TIME: 11:28 Consult Date/Type/Reason Admit Date/Time Aug 03, 2016 at 18:48 Initial Consult Date Type of Consultation: pulmonary Subjective patient remains intubated sedated on mechanical ventilation Objective Vital Signs Date Time Temp Pulse Resp B/P Pulse Ox O2 Delivery O2 Flow Rate FiO2 08/04/16 11:00 67 17 93/25 100 Mechanical Ventilator 08/04/16 09:52 30 08/04/16 08:00 97.9 08/03/16 14:00 3.0 Intake and Output 08/03/16 08/03/16 08/04/16 15:00 23:00 07:00 Intake Total 666.6 ml 450.52 ml Output Total 2500 ml 0 ml Balance -1833.4 ml 450.52 ml PHYSICAL EXAMINATION: GENERAL: Well-nourished, well-developed lady, on mechanical ventilation VITAL SIGNS: NECK: Supple. No JVD or lymphadenopathy. CARDIAC: S1, S2, no added sounds or murmurs. CHEST: Diminished air entry bilaterally. ABDOMEN: Soft, nontender. No guarding or rebound. EXTREMITIES: No cyanosis, clubbing, edema. NEUROLOGIC: Generalized weakness. Results/Medications Result Diagram: 08/04/16 0551 08/04/16 0551 Results 24 hrs Laboratory Tests Test 08/03/16 12:42 08/03/16 16:05 08/03/16 16:21 08/03/16 17:58 Bedside Glucose 93 39 *L 108 Arterial Blood HCO3 30.6 H Arterial Blood Base Excess 5.2 H Arterial Blood Oxygen Saturation 96.1 Keyur Test N/A Arterial Blood Gas Puncture Site Right Brachial Arterial Blood Carboxyhemoglobin 0.4 Arterial Blood Date Drawn 08/03/2016 6:13:40 PM Arterial Blood Methemoglobin 0.2 Arterial Blood pCO2 (Temp correct) 48.0 H Arterial Blood pH (Temp corrected) 7.422 Arterial Blood pO2 (Temp corrected) 91.1 Blood Gas A-a O2 Differential 138.9 H Blood Gas Actual Respiration Rate 15 Blood Gas Low PEEP Setting 5.0 Blood Gas Modality VENT - AC Blood Gas Notified Time 08/03/2016 6:23:22 PM Blood Gas Notified Whom M.D. Blood Gas Respiration Rate 14.0 Blood Gas Specimen Source Blood arterial Blood Gas Temperature 37.0 Blood Gas Tidal Volume 450.0 FiO2 40.0 Oxyhemoglobin Percent 95.5 Total Hemoglobin 12.8 Test 08/03/16 18:06 08/03/16 19:00 08/03/16 20:51 08/03/16 22:04 Bedside Glucose 91 74 95 Lactic Acid Level 1.3 Test 08/03/16 23:04 08/04/16 05:51 08/04/16 07:00 08/04/16 07:06 Bedside Glucose 152 33 *L Anion Gap 19 H Basophils # 0.0 Basophils % 0.1 Blood Morphology Comment Blood Urea Nitrogen 23 #H Calcium Level 9.2 Carbon Dioxide Level 30 Chloride Level 92 L Creatinine 2.75 #H Eosinophils # 0.0 Eosinophils % 0.0 Glucose Level 25 #*L Hematocrit 33.8 L Hemoglobin 11.3 L Hemoglobin A1c 4.9 Lactic Acid Level 1.4 Lymphocytes # 1.7 Lymphocytes % 17.5 Magnesium Level 2.0 Mean Corpuscular Hemoglobin 31.1 Mean Corpuscular Hemoglobin Concent 33.5 Mean Corpuscular Volume 93.0 Mean Platelet Volume 8.3 Monocytes # 0.6 Monocytes % 6.3 Neutrophils # 7.3 Neutrophils % 76.1 Nucleated Red Blood Cells # 0.0 Nucleated Red Blood Cells % 0.0 Phosphorus Level 2.8 Platelet Count 137 L Potassium Level 3.0 L Prealbumin 9.7 L Red Blood Count 3.63 L Red Cell Distribution Width 18.1 H Sodium Level 138 Thyroid Stimulating Hormone (TSH) 3.210 White Blood Count 9.5 Arterial Blood HCO3 31.7 H Arterial Blood Base Excess 7.5 H Arterial Blood Oxygen Saturation 98.3 H Keyur Test ACCEPTAB Arterial Blood Gas Puncture Site Right Radial Arterial Blood Carboxyhemoglobin 0.1 Arterial Blood Date Drawn 08/04/2016 7:20:18 AM Arterial Blood Methemoglobin 0.2 Arterial Blood pCO2 (Temp correct) 42.9 Arterial Blood pH (Temp corrected) 7.486 H Arterial Blood pO2 (Temp corrected) 127.3 H Blood Gas A-a O2 Differential 108.6 H Blood Gas Actual Respiration Rate 14 Blood Gas Low PEEP Setting 5.0 Blood Gas Modality VENT - AC Blood Gas Notified Time 08/04/2016 7:53:24 AM Blood Gas Notified Whom JLD Blood Gas Respiration Rate 14.0 Blood Gas Specimen Source Blood arterial Blood Gas Temperature 37.0 Blood Gas Tidal Volume 450.0 FiO2 40.0 Oxyhemoglobin Percent 98.0 Total Hemoglobin 11.3 L Test 08/04/16 07:47 08/04/16 08:03 08/04/16 11:18 Bedside Glucose 127 111 48 *L Medications Current Medications Ondansetron HCl (Zofran Inj) 4 mg Q6H PRN IV NAUSEA AND/OR VOMITING; Start 08/03 at 13:00 Aspirin (Aspirin) 81 mg DAILY PO Last administered on 08/04/16 08:28; Admin Dose 81 MG; Start 08/04/16 at 09:00 Clopidogrel Bisulfate (plaVIX) 75 mg DAILY PO Last administered on 08/04/16 08: 28; Admin Dose 75 MG; Start 08/04/16 at 09:00 Nitroglycerin (Nitroglycerin (Sl Tab) 0.4 Mg) 1 tab Q5M PRN SL CHEST PAIN; Start 08/03/16 at 13:00 Acetaminophen (Tylenol Tab) 650 mg Q6H PRN PO PAIN LEVEL 1-3 OR FEVER; Start at 13:00 Docusate Sodium (Colace) 100 mg Q12H PRN PO CONSTIPATION; Start 08/03/16 at 13: 00 Pantoprazole (Protonix Iv) 40 mg DAILY@06 IV Last administered on 08/04/16 05: 54; Admin Dose 40 MG; Start 08/04/16 at 06:00 Heparin Sodium (Porcine) (Heparin (5000 Units/0.5 ml)) 5,000 unit Q12 SC Last administered on 08/04/16 08:29; Admin Dose 5,000 UNIT; Start 08/03/16 at 21:00 Hydroxychloroquine Sulfate (Plaquenil) 200 mg BID PO Last administered on 08:28; Admin Dose 200 MG; Start 08/03/16 at 21:00 Multivit/Ca Carb/ B Cmplx/FA/Prenat (Loretta-Owen) 1 tab DAILY PO Last administered on 08/04/16 08:28; Admin Dose 1 TAB; Start 08/04/16 at 09:00 Atorvastatin Calcium (Lipitor) 20 mg DAILY@21 PO Last administered on 08/04/16 00:56; Admin Dose 20 MG; Start 08/03/16 at 21:00 Miscellaneous Information 1 ea NOTE XX ; Start 08/03/16 at 13:00 Glucose (Glutose) 15 gm Q15M PRN PO DECREASED GLUCOSE; Start 08/03/16 at 13:00 Glucose (Glutose) 22.5 gm Q15M PRN PO DECREASED GLUCOSE; Start 08/03/16 at 13:00 Dextrose (D50w Syringe) 25 ml Q15M PRN IV DECREASED GLUCOSE Last administered on 08/04/16 11:21; Admin Dose 50 ML; Start 08/03/16 at 13:00 Dextrose (D50w Syringe) 50 ml Q15M PRN IV DECREASED GLUCOSE Last administered on 08/04/16 07:09; Admin Dose 50 ML; Start 08/03/16 at 13:00 Glucagon (Glucagen) 1 mg Q15M PRN IM DECREASED GLUCOSE; Start 08/03/16 at 13:00 Glucose 15 gm 15 gm Q15M PRN BUCCAL DECREASED GLUCOSE; Start 08/03/16 at 13:00 Aztreonam/Sodium Chloride (Azactam/NS) 50 ml @ 100 mls/hr Q12 IV Last administered on 08/04/16 08:28; Admin Dose 100 MLS/HR; Start 08/03/16 at 14:00 Acetaminophen 500 mg 500 mg Q4H PRN PO PAIN AND OR ELEVATED TEMP; Start at 20:00 Sodium Chloride 77 meq/Dextrose 1,019.25 ml @ 40 mls/hr Q24H IV Last administered on 08/03/16 21:22; Admin Dose 40 MLS/HR; Start 08/03/16 at 20:30 Propofol 100 ml @ 1.83 mls/hr Q12H IV Last administered on 08/04/16 03:44; Admin Dose 10.98 MLS/HR; Start 08/03/16 at 21:30 Potassium Chloride (KCl 40 MEQ/250 ML NS) 250 ml @ 62.5 mls/hr ONCE ONCE IVPB Last administered on 08/04/16 08:28; Admin Dose 62.5 MLS/HR; Start 08/04/16 at 08:00; Stop 08/04/16 at 11:59 Assessment/Plan Chief Complaint/Hosp Course IMPRESSION AND PLAN: 1. Acute hypoxemic respiratory failure, likely secondary to volume overload. 2. End-stage renal failure on hemodialysis. 3. History of coronary artery disease, questionable coronary ischemia. 4. History of diabetes. 5. History of hypertension. Patient will require: 1. Emergent hemodialysis with volume removal. 2. Continue mechanical ventilation, CPAP weaning trial 3. Hypoxemic respiratory failure secondary to pulmonary edema. 4. Cardiology recommendations with echocardiogram and possible reevaluation of coronary grafts. 5. DVT and GI prophylaxis. Problems: JOY ROBERTS MD, [facility] Aug 04, 2016 11:29
[2016-08-04] MEDS: ALBUMIN HUMAN 25% 100 ML IV PRN (12:17)
--- NOTE | 2016-08-04 13:55 | PN ---
Date/Time of Note Date/Time of Note DATE: 08/04/16 TIME: 13:46 Assessment/Plan VTE Prophylaxis VTE Prophylaxis Intervention: heparin, SCD's Lines/Catheters IV C[facility] Type (from [facility] Peripheral IV Urinary Cath still in place: No Assessment/Plan Chief Complaint/Hosp Course ASSESSMENT: 1. Acute respiratory distress secondary to pulmonary edema and possible infiltrates. Dr. Morrissey is following in pulmonology consultation. Continue ventilator support. 2. Possible healthcare-acquired pneumonia. Continue aztreonam and vancomycin. 3. End-stage renal disease. Dr. Quintanilla following from nephrology standpoint. Continue hemodialysis. 4. Diabetes mellitus with patient being hypoglycemic. Continue to monitor blood sugar closely. Continue IV fluids with dextrose. 5. Possible sepsis. Continue antibiotics. Follow up on cultures. 6. Coronary artery disease. Continue Plavix and aspirin. 7. Lupus by history. Continue Plaquenil. 8. Hypothyroidism. TSH is 3.2. Continue Synthroid. 9. Hyperlipidemia. Continue Crestor. Continue sequential compression device for deep venous thrombosis prophylaxis and Protonix for peptic ulcer disease prophylaxis. Further recommendations based on clinical course. Plan of care discussed with Dr. Rojo. Problems: Subjective 24 Hr Interval Summary Free Text/Dictation Patient is orally intubated on vent support, sedated on propofol, currently undergoing hemodialysis,hypoglycemic episode, continued on D10 IV fluids Exam/Review of Systems Vital Signs Vitals Vital Signs Date Time Temp Pulse Resp B/P Pulse Ox O2 Delivery O2 Flow Rate FiO2 08/04/16 13:30 68 08/04/16 11:40 20 100 30 08/04/16 11:00 93/25 Mechanical Ventilator 08/04/16 08:00 97.9 08/03/16 14:00 3.0 Intake and Output 08/03/16 08/03/16 08/04/16 15:00 23:00 07:00 Intake Total 666.6 ml 450.52 ml Output Total 2500 ml 0 ml Balance -1833.4 ml 450.52 ml Exam GENERAL: Well-developed, well-nourished elderly female orally intubated on vent support HEENT: Head is atraumatic, normocephalic. Pupils equal, round, reactive to light and accommodation. Oral mucosa is pink and moist. NECK: Supple, no cervical lymphadenopathy, no thyromegaly. CHEST: Lungs with diminished air entry bilaterally, inspiratory wheezes bilaterally and scattered rhonchi. CARDIOVASCULAR: Normal S1, S2. No murmurs, gallops, clicks, rubs noted. ABDOMEN: Round, soft, nondistended, nontender. EXTREMITIES: Mild edema. No clubbing, cyanosis. Right upper extremity with arteriovenous fistula with palpable thrill and audible bruit. SKIN: There is no rash, petechiae noted. NEUROLOGIC: Sedated Results Result Diagram: 08/04/16 0551 08/04/16 0551 Results 24 hrs Laboratory Tests Test 08/03/16 16:05 08/03/16 16:21 08/03/16 17:58 08/03/16 18:06 Bedside Glucose 39 *L 108 91 Arterial Blood HCO3 30.6 H Arterial Blood Base Excess 5.2 H Arterial Blood Oxygen Saturation 96.1 Keyur Test N/A Arterial Blood Gas Puncture Site Right Brachial Arterial Blood Carboxyhemoglobin 0.4 Arterial Blood Date Drawn 08/03/2016 6:13:40 PM Arterial Blood Methemoglobin 0.2 Arterial Blood pCO2 (Temp correct) 48.0 H Arterial Blood pH (Temp corrected) 7.422 Arterial Blood pO2 (Temp corrected) 91.1 Blood Gas A-a O2 Differential 138.9 H Blood Gas Actual Respiration Rate 15 Blood Gas Low PEEP Setting 5.0 Blood Gas Modality VENT - AC Blood Gas Notified Time 08/03/2016 6:23:22 PM Blood Gas Notified Whom M.D. Blood Gas Respiration Rate 14.0 Blood Gas Specimen Source Blood arterial Blood Gas Temperature 37.0 Blood Gas Tidal Volume 450.0 FiO2 40.0 Oxyhemoglobin Percent 95.5 Total Hemoglobin 12.8 Test 08/03/16 19:00 08/03/16 20:51 08/03/16 22:04 08/03/16 23:04 Lactic Acid Level 1.3 Bedside Glucose 74 95 152 Test 08/04/16 05:51 08/04/16 07:00 08/04/16 07:06 08/04/16 07:47 Anion Gap 19 H Basophils # 0.0 Basophils % 0.1 Blood Morphology Comment Blood Urea Nitrogen 23 #H Calcium Level 9.2 Carbon Dioxide Level 30 Chloride Level 92 L Creatinine 2.75 #H Eosinophils # 0.0 Eosinophils % 0.0 Glucose Level 25 #*L Hematocrit 33.8 L Hemoglobin 11.3 L Hemoglobin A1c 4.9 Lactic Acid Level 1.4 Lymphocytes # 1.7 Lymphocytes % 17.5 Magnesium Level 2.0 Mean Corpuscular Hemoglobin 31.1 Mean Corpuscular Hemoglobin Concent 33.5 Mean Corpuscular Volume 93.0 Mean Platelet Volume 8.3 Monocytes # 0.6 Monocytes % 6.3 Neutrophils # 7.3 Neutrophils % 76.1 Nucleated Red Blood Cells # 0.0 Nucleated Red Blood Cells % 0.0 Phosphorus Level 2.8 Platelet Count 137 L Potassium Level 3.0 L Prealbumin 9.7 L Red Blood Count 3.63 L Red Cell Distribution Width 18.1 H Sodium Level 138 Thyroid Stimulating Hormone (TSH) 3.210 White Blood Count 9.5 Arterial Blood HCO3 31.7 H Arterial Blood Base Excess 7.5 H Arterial Blood Oxygen Saturation 98.3 H Keyur Test ACCEPTAB Arterial Blood Gas Puncture Site Right Radial Arterial Blood Carboxyhemoglobin 0.1 Arterial Blood Date Drawn 08/04/2016 7:20:18 AM Arterial Blood Methemoglobin 0.2 Arterial Blood pCO2 (Temp correct) 42.9 Arterial Blood pH (Temp corrected) 7.486 H Arterial Blood pO2 (Temp corrected) 127.3 H Blood Gas A-a O2 Differential 108.6 H Blood Gas Actual Respiration Rate 14 Blood Gas Low PEEP Setting 5.0 Blood Gas Modality VENT - AC Blood Gas Notified Time 08/04/2016 7:53:24 AM Blood Gas Notified Whom JLD Blood Gas Respiration Rate 14.0 Blood Gas Specimen Source Blood arterial Blood Gas Temperature 37.0 Blood Gas Tidal Volume 450.0 FiO2 40.0 Oxyhemoglobin Percent 98.0 Total Hemoglobin 11.3 L Bedside Glucose 33 *L 127 Test 08/04/16 08:03 08/04/16 11:18 08/04/16 11:53 08/04/16 12:35 Bedside Glucose 111 48 *L 158 132 Medications Medications Current Medications Ondansetron HCl (Zofran Inj) 4 mg Q6H PRN IV NAUSEA AND/OR VOMITING; Start 08/03 at 13:00 Aspirin (Aspirin) 81 mg DAILY PO Last administered on 08/04/16 08:28; Admin Dose 81 MG; Start 08/04/16 at 09:00 Clopidogrel Bisulfate (plaVIX) 75 mg DAILY PO Last administered on 08/04/16 08: 28; Admin Dose 75 MG; Start 08/04/16 at 09:00 Nitroglycerin (Nitroglycerin (Sl Tab) 0.4 Mg) 1 tab Q5M PRN SL CHEST PAIN; Start 08/03/16 at 13:00 Acetaminophen (Tylenol Tab) 650 mg Q6H PRN PO PAIN LEVEL 1-3 OR FEVER; Start at 13:00 Docusate Sodium (Colace) 100 mg Q12H PRN PO CONSTIPATION; Start 08/03/16 at 13: 00 Pantoprazole (Protonix Iv) 40 mg DAILY@06 IV Last administered on 08/04/16 05: 54; Admin Dose 40 MG; Start 08/04/16 at 06:00 Heparin Sodium (Porcine) (Heparin (5000 Units/0.5 ml)) 5,000 unit Q12 SC Last administered on 08/04/16 08:29; Admin Dose 5,000 UNIT; Start 08/03/16 at 21:00 Hydroxychloroquine Sulfate (Plaquenil) 200 mg BID PO Last administered on 08:28; Admin Dose 200 MG; Start 08/03/16 at 21:00 Multivit/Ca Carb/ B Cmplx/FA/Prenat (Loretta-Owen) 1 tab DAILY PO Last administered on 08/04/16 08:28; Admin Dose 1 TAB; Start 08/04/16 at 09:00 Atorvastatin Calcium (Lipitor) 20 mg DAILY@21 PO Last administered on 08/04/16 00:56; Admin Dose 20 MG; Start 08/03/16 at 21:00 Miscellaneous Information 1 ea NOTE XX ; Start 08/03/16 at 13:00 Glucose (Glutose) 15 gm Q15M PRN PO DECREASED GLUCOSE; Start 08/03/16 at 13:00 Glucose (Glutose) 22.5 gm Q15M PRN PO DECREASED GLUCOSE; Start 08/03/16 at 13:00 Dextrose (D50w Syringe) 25 ml Q15M PRN IV DECREASED GLUCOSE Last administered on 08/04/16 11:21; Admin Dose 50 ML; Start 08/03/16 at 13:00 Dextrose (D50w Syringe) 50 ml Q15M PRN IV DECREASED GLUCOSE Last administered on 08/04/16 07:09; Admin Dose 50 ML; Start 08/03/16 at 13:00 Glucagon (Glucagen) 1 mg Q15M PRN IM DECREASED GLUCOSE; Start 08/03/16 at 13:00 Glucose 15 gm 15 gm Q15M PRN BUCCAL DECREASED GLUCOSE; Start 08/03/16 at 13:00 Aztreonam/Sodium Chloride (Azactam/NS) 50 ml @ 100 mls/hr Q12 IV Last administered on 08/04/16 08:28; Admin Dose 100 MLS/HR; Start 08/03/16 at 14:00 Acetaminophen 500 mg 500 mg Q4H PRN PO PAIN AND OR ELEVATED TEMP; Start at 20:00 Sodium Chloride 77 meq/Dextrose 1,019.25 ml @ 40 mls/hr Q24H IV Last administered on 08/03/16 21:22; Admin Dose 40 MLS/HR; Start 08/03/16 at 20:30 Propofol (Diprivan) 100 ml @ 1.83 mls/hr Q12H IV Last administered on 03:44; Admin Dose 10.98 MLS/HR; Start 08/03/16 at 21:30 Miscellaneous Information (*Rx Drug Level Order Reminder*) 1 ONCE ONCE XX ; Start 08/05/16 at 05:00; Stop 08/05/16 at 05:01 MARINA ZEPEDA Aug 04, 2016 13:54
[2016-08-04] MEDS: ALBUTEROL 0.083% (NEB) 2.5 MG/3 ML AMP HHN PRN (23:08)
[2016-08-04] MEDS: IPRATROPIUM (NEB) 0.5 MG/2.5 ML AMP HHN PRN (23:08)
[2016-08-04 23:35] LABS: AADO2 Arterial 339.2 mmHg (7.0-24.0); Allen Test ACCEPTAB; Arterial Base Excess 3.2 mmol/L (-3.0-3); Arterial COHb 0.6 % (0.0-3.0); Arterial Fraction of Oxyhgb 82.8 % (93.0-99.0); Arterial HCO3 27.6 mmol/L (22.0-26.0); Arterial MetHb 0.2 % (0.0-1.5); Arterial Total Hemglobin 13.1 g/dl (12.0-18.0); MODE NEBULIZER TX
[2016-08-05] VITALS (36 sets, daily range): BP systolic 141–179; BP diastolic 45–62; PULSE 86–100; RESP 19–40
[2016-08-05] MEDS: hydrALAzine 20 MG INJ IV PRN ×2 (01:44→16:57)
[2016-08-05] MEDS: SODIUM CHLORIDE 23.4% 77 MEQ in DEXTROSE 10% 1,000 ML IV SCH ×2 (05:47→20:30)
[2016-08-05] MEDS: PANTOPRAZOLE 40 MG INJ IV SCH (05:51)
[2016-08-05 06:36] LABS: BASOPHIL # 0.1 10^3/ul (0.0-0.1); BASOPHILS % 0.5 % (0.0-2.0); HEMATOCRIT 34.5 % (37.0-47.0); HEMOGLOBIN 11.6 g/dl (12.0-16.0); LYMPHOCYTES # 1.1 10^3/ul (0.8-2.9); LYMPHOCYTES % 10.8 % (15.0-51.0); MEAN CORPUSCULAR HEMOGLOBIN 31.1 pg (29.0-33.0); MEAN CORPUSCULAR HGB CONC 33.5 g/dl (32.0-37.0); MEAN CORPUSCULAR VOLUME 92.9 fl (82.0-101.0); MEAN PLATELET VOLUME 8.6 fl (7.4-10.4); MONOCYTE # 0.6 10^3/ul (0.3-0.9); MONOCYTES % 6.3 % (0.0-11.0); NEUTROPHIL # 8.3 10^3/ul (1.6-7.5); NEUTROPHILS % 82.4 % (39.0-77.0); PLATELET COUNT 149 10^3/UL (140-440); RED BLOOD COUNT 3.72 10^6/ul (4.20-5.40); RED CELL DISTRIBUTION WIDTH 18.3 % (11.5-14.5); UNCORRECTED WBC 10.1 10^3/ul (4.8-10.8); WHITE BLOOD COUNT 10.1 10^3/ul (4.8-10.8)
[2016-08-05 06:46] LABS: CONDITION 1; LH ANALYZER COMMENTS 1
[2016-08-05 06:53] LABS: CREATININE 2.36 mg/dl (0.44-1.00)
[2016-08-05 06:54] LABS: CALCIUM 9.9 mg/dl (8.4-10.2); PHOSPHORUS 3.1 mg/dl (2.5-4.9)
[2016-08-05] MEDS: LEVOTHYROXINE 100 MCG TAB PO SCH ×2 (07:05→08:17)
--- NOTE | 2016-08-05 07:34 | RADRPT ---
PROCEDURE: XR Chest. CLINICAL INDICATION: Pneumonia. Congestive heart failure. TECHNIQUE: Portable single view of the chest COMPARISON: 08/04 FINDINGS: Endotracheal tube has been removed. Nasogastric tube remains in place. Cardiomegaly and aortic kendall cification. Lateral right lung infiltrate appears to have increased slightly. Left lung infiltrate is stable. Pulmonary vascular congestion and increased interstitial markings again seen. Left vas cular stent. IMPRESSION: Removal of endotracheal tube. Possibly increasing right lung infiltrate. RPTAT: HLBE Gabriella Antoine Physician Date Time Electronically viewed and signed by Gabriella Antoine Physician on 08/05/2016 07:34 RIVAS/
[2016-08-05] MEDS: INSULIN ASPART [NOVOLOG] 3 ML PEN SC SCH ×4 (07:35→21:00)
[2016-08-05] MEDS: SEVELAMER CARBONATE 0.8 GM PKT PO SCH ×3 (08:17→17:01)
[2016-08-05] MEDS: CLOPIDOGREL 75 MG TAB PO SCH (08:17)
[2016-08-05] MEDS: MULTIVIT/CA CARB/B CMPLX/FA TAB PO SCH (08:17)
[2016-08-05] MEDS: HYDROXYCHLOROQUINE 200 MG TAB PO SCH ×2 (08:17→21:12)
[2016-08-05] MEDS: ASPIRIN 81 MG TAB PO SCH (08:17)
[2016-08-05] MEDS: ACETAMINOPHEN 325 MG TAB PO PRN (08:18)
[2016-08-05] MEDS: HEPARIN 5,000 UNIT/0.5 ML SYG SC SCH ×2 (08:29→21:23)
[2016-08-05] MEDS: AZTREONAM 0.5 GM in SOD CHLORIDE 0.9% 50 ML IV SCH ×2 (08:38→21:11)
[2016-08-05 08:58] LABS: AADO2 Arterial 94.7 mmHg (7.0-24.0); Allen Test ACCEPTAB; Arterial COHb 0.8 % (0.0-3.0); Arterial Fraction of Oxyhgb 94.8 % (93.0-99.0); Arterial HCO3 26.9 mmol/L (22.0-26.0); Arterial MetHb 0 % (0.0-1.5); Arterial Total Hemglobin 12.1 g/dl (12.0-18.0); Blood Gas PS 10; MODE VENT - CPAP
--- NOTE | 2016-08-05 09:06 | CONS ---
Date/Time of Note Date/Time of Note DATE: 08/05/16 TIME: 09:04 Consult Date/Type/Reason Admit Date/Time Aug 03, 2016 at 18:48 Type of Consultation: pulmonary Subjective Awake alert oriented on BiPAP this morning Remains hemodynamic stable Nasogastric tube in place Objective Vital Signs Date Time Temp Pulse Resp B/P Pulse Ox O2 Delivery O2 Flow Rate FiO2 08/05/16 08:00 87 28 145/45 100 BIPAP 08/05/16 07:00 99.4 08/05/16 05:42 60 08/04/16 23:08 15.0 Intake and Output 08/04/16 08/04/16 08/05/16 15:00 23:00 07:00 Intake Total 608.56 ml 295 ml 459.5 ml Output Total 1500 ml 0 ml 0 ml Balance -891.44 ml 295 ml 459.5 ml GENERAL: Elderly lady appears comfortable at rest VITAL SIGNS: per chart NECK: Supple. No JVD or lymphadenopathy. CARDIAC EXAM: S1, S2. No added sounds or murmurs. CHEST: Diminished air entry bilaterally with expiratory wheezes ABDOMEN: Soft, nontender. No guarding or rebound. EXTREMITIES: No cyanosis, clubbing or edema. NEUROLOGIC: Generalized weakness. No focal deficits. Results/Medications Result Diagram: 08/05/16 0541 08/05/16 0541 Results 24 hrs Chest x-ray Ongoing pulmonary edema Laboratory Tests Test 08/04/16 11:18 08/04/16 11:53 08/04/16 12:35 08/04/16 17:56 Bedside Glucose 48 *L 158 132 Arterial Blood HCO3 26.9 H Arterial Blood Base Excess 4.0 H Arterial Blood Oxygen Saturation 95.6 Keyur Test ACCEPTAB Arterial Blood Gas Puncture Site Right Radial Arterial Blood Carboxyhemoglobin 0.8 Arterial Blood Date Drawn 08/04/2016 5:18:00 PM Arterial Blood Methemoglobin 0 Arterial Blood pCO2 (Temp correct) 34.7 L Arterial Blood pH (Temp corrected) 7.507 H Arterial Blood pO2 (Temp corrected) 78.4 L Blood Gas A-a O2 Differential 94.7 H Blood Gas Actual Respiration Rate 30 Blood Gas Low PEEP Setting 5.0 Blood Gas Modality VENT - CPAP Blood Gas Notified Time 08/04/2016 5:21:00 PM Blood Gas Notified Whom RT Blood Gas Pressure Support 10 Blood Gas Specimen Source Blood arterial Blood Gas Temperature 37.0 FiO2 30.0 Oxyhemoglobin Percent 94.8 Total Hemoglobin 12.1 Test 08/04/16 18:12 08/04/16 19:29 08/04/16 20:40 08/04/16 22:46 Bedside Glucose 57 L 88 73 68 L Test 08/04/16 23:05 08/04/16 23:10 08/05/16 05:41 08/05/16 08:16 Arterial Blood HCO3 27.6 H Arterial Blood Base Excess 3.2 H Arterial Blood Oxygen Saturation 83.5 L Keyur Test ACCEPTAB Arterial Blood Gas Puncture Site Right Radial Arterial Blood Carboxyhemoglobin 0.6 Arterial Blood Date Drawn 08/04/2016 11:25:25 PM Arterial Blood Methemoglobin 0.2 Arterial Blood pCO2 (Temp correct) 41.3 Arterial Blood pH (Temp corrected) 7.443 Arterial Blood pO2 (Temp corrected) 50.4 *L Blood Gas A-a O2 Differential 339.2 H Blood Gas Critical Value Read Back Emely BADILLO RN Blood Gas Modality NEBULIZER [place] Blood Gas Notified Time 08/04/2016 11:35:04 PM Blood Gas Notified Whom MG Blood Gas Specimen Source Blood arterial Blood Gas Temperature 37.0 FiO2 61.0 Oxyhemoglobin Percent 82.8 L Total Hemoglobin 13.1 Bedside Glucose 106 137 Anion Gap 17 H Basophils # 0.1 Basophils % 0.5 Blood Morphology Comment Blood Urea Nitrogen 17 Calcium Level 9.9 Carbon Dioxide Level 27 Chloride Level 98 Creatinine 2.36 H Eosinophils # 0.0 Eosinophils % 0.0 Glucose Level 140 # Hematocrit 34.5 L Hemoglobin 11.6 L Lymphocytes # 1.1 Lymphocytes % 10.8 L Magnesium Level 2.0 Mean Corpuscular Hemoglobin 31.1 Mean Corpuscular Hemoglobin Concent 33.5 Mean Corpuscular Volume 92.9 Mean Platelet Volume 8.6 Monocytes # 0.6 Monocytes % 6.3 Neutrophils # 8.3 H Neutrophils % 82.4 H Nucleated Red Blood Cells # 0.0 Nucleated Red Blood Cells % 0.0 Phosphorus Level 3.1 Platelet Count 149 Potassium Level 4.0 Random Vancomycin Level 14.1 Red Blood Count 3.72 L Red Cell Distribution Width 18.3 H Sodium Level 138 White Blood Count 10.1 Medications Current Medications Ondansetron HCl (Zofran Inj) 4 mg Q6H PRN IV NAUSEA AND/OR VOMITING; Start 08/03 at 13:00 Aspirin (Aspirin) 81 mg DAILY PO Last administered on 08/05/16 08:17; Admin Dose 81 MG; Start 08/04/16 at 09:00 Clopidogrel Bisulfate (plaVIX) 75 mg DAILY PO Last administered on 08/05/16 08: 17; Admin Dose 75 MG; Start 08/04/16 at 09:00 Nitroglycerin (Nitroglycerin (Sl Tab) 0.4 Mg) 1 tab Q5M PRN SL CHEST PAIN; Start 08/03/16 at 13:00 Acetaminophen (Tylenol Tab) 650 mg Q6H PRN PO PAIN LEVEL 1-3 OR FEVER Last administered on 08/05/16 08:18; Admin Dose 650 MG; Start 08/03/16 at 13:00 Docusate Sodium (Colace) 100 mg Q12H PRN PO CONSTIPATION; Start 08/03/16 at 13: 00 Pantoprazole (Protonix Iv) 40 mg DAILY@06 IV Last administered on 08/05/16 05: 51; Admin Dose 40 MG; Start 08/04/16 at 06:00 Heparin Sodium (Porcine) (Heparin (5000 Units/0.5 ml)) 5,000 unit Q12 SC Last administered on 08/05/16 08:29; Admin Dose 5,000 UNIT; Start 08/03/16 at 21:00 Hydroxychloroquine Sulfate (Plaquenil) 200 mg BID PO Last administered on 08:17; Admin Dose 200 MG; Start 08/03/16 at 21:00 Multivit/Ca Carb/ B Cmplx/FA/Prenat (Loretta-Owen) 1 tab DAILY PO Last administered on 08/05/16 08:17; Admin Dose 1 TAB; Start 08/04/16 at 09:00 Atorvastatin Calcium (Lipitor) 20 mg DAILY@21 PO Last administered on 08/04/16 20:52; Admin Dose 20 MG; Start 08/03/16 at 21:00 Miscellaneous Information 1 ea NOTE XX ; Start 08/03/16 at 13:00 Glucose (Glutose) 15 gm Q15M PRN PO DECREASED GLUCOSE; Start 08/03/16 at 13:00 Glucose (Glutose) 22.5 gm Q15M PRN PO DECREASED GLUCOSE; Start 08/03/16 at 13:00 Dextrose (D50w Syringe) 25 ml Q15M PRN IV DECREASED GLUCOSE Last administered on 08/04/16 22:47; Admin Dose 25 ML; Start 08/03/16 at 13:00 Dextrose (D50w Syringe) 50 ml Q15M PRN IV DECREASED GLUCOSE Last administered on 08/04/16 07:09; Admin Dose 50 ML; Start 08/03/16 at 13:00 Glucagon (Glucagen) 1 mg Q15M PRN IM DECREASED GLUCOSE; Start 08/03/16 at 13:00 Glucose 15 gm 15 gm Q15M PRN BUCCAL DECREASED GLUCOSE; Start 08/03/16 at 13:00 Aztreonam/Sodium Chloride (Azactam/NS) 50 ml @ 100 mls/hr Q12 IV Last administered on 08/05/16 08:38; Admin Dose 100 MLS/HR; Start 08/03/16 at 14:00 Acetaminophen 500 mg 500 mg Q4H PRN PO PAIN AND OR ELEVATED TEMP; Start at 20:00 Sodium Chloride 77 meq/Dextrose 1,019.25 ml @ 40 mls/hr Q24H IV Last administered on 08/05/16 05:47; Admin Dose 40 MLS/HR; Start 08/03/16 at 20:30 Propofol (Diprivan) 100 ml @ 1.83 mls/hr Q12H IV Last administered on 03:44; Admin Dose 10.98 MLS/HR; Start 08/03/16 at 21:30 Hydralazine HCl (Apresoline) 20 mg Q6H PRN IV ELEVATED SYSTOLIC BP Last administered on 08/05/16 01:44; Admin Dose 20 MG; Start 08/05/16 at 01:30 Lorazepam (Ativan) 0.5 mg Q6H PRN IV AGITATION/ANXIETY; Start 08/05/16 at 01:30 Assessment/Plan Chief Complaint/Hosp Course IMPRESSION AND PLAN: 1. Acute hypoxemic respiratory failure, likely secondary to volume overload. 2. End-stage renal failure on hemodialysis. 3. History of coronary artery disease, questionable coronary ischemia. 4. History of diabetes. 5. History of hypertension. Patient will require: 1. Emergent hemodialysis with volume removal. 2. Continue BiPAP, trial of nasal cannula oxygen 3. Aspiration precautions speech therapy evaluation 4. Cardiology recommendations with echocardiogram and possible reevaluation of coronary grafts. 5. DVT and GI prophylaxis. If she is stable off BiPAP she can be transferred to telemetry. Problems: JOY ROBERTS MD, [facility] Aug 05, 2016 09:06
[2016-08-05] MEDS: PROPOFOL 100 ML IV SCH ×2 (09:30→21:30)
[2016-08-05] MEDS ORDERED: VANCOMYCIN 750 MG in SOD CHLORIDE 0.9% 150 ML IVPB SCH (15:00)
--- NOTE | 2016-08-05 17:07 | PN ---
Date/Time of Note Date/Time of Note DATE: 08/05/16 TIME: 17:04 Assessment/Plan VTE Prophylaxis VTE Prophylaxis Intervention: SCD's Lines/Catheters IV [facility]from [facility] Peripheral IV Urinary Cath still in place: No Assessment/Plan Chief Complaint/Hosp Course ASSESSMENT: 1. Acute respiratory distress secondary to pulmonary edema and possible infiltrates. Dr. Morrissey is following in pulmonology consultation. Continue ventilator support. 2. Possible healthcare-acquired pneumonia. Continue aztreonam and vancomycin. Follow up on final sputum culture. 3. End-stage renal disease. Dr. Quintanilla following from nephrology standpoint. Continue hemodialysis. 4. Diabetes mellitus with patient being hypoglycemic. Continue to monitor blood sugar closely. Continue IV fluids with dextrose. 5. Possible sepsis. Continue antibiotics. Follow up on cultures. 6. Coronary artery disease. Continue Plavix and aspirin. 7. Lupus by history. Continue Plaquenil. 8. Hypothyroidism. TSH is 3.2. Continue Synthroid. 9. Hyperlipidemia. Continue Crestor. Continue sequential compression device for deep venous thrombosis prophylaxis and Protonix for peptic ulcer disease prophylaxis. Further recommendations based on clinical course. Plan of care discussed with Dr. Rojo. Problems: Subjective 24 Hr Interval Summary Free Text/Dictation Patient is extubated currently on BiPAP, no fever nausea vomiting reported. Exam/Review of Systems Vital Signs Vitals Vital Signs Date Time Temp Pulse Resp B/P Pulse Ox O2 Delivery O2 Flow Rate FiO2 08/05/16 15:00 89 19 161/52 97 BIPAP 08/05/16 10:00 99.2 08/05/16 05:42 60 08/04/16 23:08 15.0 Intake and Output 08/04/16 08/04/16 08/05/16 15:00 23:00 07:00 Intake Total 608.56 ml 295 ml 499.5 ml Output Total 1500 ml 0 ml 0 ml Balance -891.44 ml 295 ml 499.5 ml Exam GENERAL: Well-developed, well-nourished elderly female orally intubated on vent support HEENT: Head is atraumatic, normocephalic. PERRLA. NECK: Supple, no cervical lymphadenopathy, no thyromegaly. CHEST: Lungs with diminished air entry bilaterally, inspiratory wheezes bilaterally and scattered rhonchi. CARDIOVASCULAR: Normal S1, S2. No murmurs, gallops, clicks, rubs noted. ABDOMEN: Round, soft, nondistended, nontender. EXTREMITIES: Mild edema. No clubbing, cyanosis. Right upper extremity with arteriovenous fistula with palpable thrill and audible bruit. SKIN: There is no rash, petechiae noted. NEUROLOGIC: Sedated Results Result Diagram: 08/05/16 0541 08/05/16 0541 Results 24 hrs Laboratory Tests Test 08/04/16 17:56 08/04/16 18:12 08/04/16 19:29 08/04/16 20:40 Arterial Blood HCO3 26.9 H Arterial Blood Base Excess 4.0 H Arterial Blood Oxygen Saturation 95.6 Keyur Test ACCEPTAB Arterial Blood Gas Puncture Site Right Radial Arterial Blood Carboxyhemoglobin 0.8 Arterial Blood Date Drawn 08/04/2016 5:18:00 PM Arterial Blood Methemoglobin 0 Arterial Blood pCO2 (Temp correct) 34.7 L Arterial Blood pH (Temp corrected) 7.507 H Arterial Blood pO2 (Temp corrected) 78.4 L Blood Gas A-a O2 Differential 94.7 H Blood Gas Actual Respiration Rate 30 Blood Gas Low PEEP Setting 5.0 Blood Gas Modality VENT - CPAP Blood Gas Notified Time 08/04/2016 5:21:00 PM Blood Gas Notified Whom RT Blood Gas Pressure Support 10 Blood Gas Specimen Source Blood arterial Blood Gas Temperature 37.0 FiO2 30.0 Oxyhemoglobin Percent 94.8 Total Hemoglobin 12.1 Bedside Glucose 57 L 88 73 Test 08/04/16 22:46 08/04/16 23:05 08/04/16 23:10 08/05/16 05:41 Bedside Glucose 68 L 106 Arterial Blood HCO3 27.6 H Arterial Blood Base Excess 3.2 H Arterial Blood Oxygen Saturation 83.5 L Keyur Test ACCEPTAB Arterial Blood Gas Puncture Site Right Radial Arterial Blood Carboxyhemoglobin 0.6 Arterial Blood Date Drawn 08/04/2016 11:25:25 PM Arterial Blood Methemoglobin 0.2 Arterial Blood pCO2 (Temp correct) 41.3 Arterial Blood pH (Temp corrected) 7.443 Arterial Blood pO2 (Temp corrected) 50.4 *L Blood Gas A-a O2 Differential 339.2 H Blood Gas Critical Value Read Back Emely BADILLO RN Blood Gas Modality NEBULIZER [place] Blood Gas Notified Time 08/04/2016 11:35:04 PM Blood Gas Notified Whom MG Blood Gas Specimen Source Blood arterial Blood Gas Temperature 37.0 FiO2 61.0 Oxyhemoglobin Percent 82.8 L Total Hemoglobin 13.1 Anion Gap 17 H Basophils # 0.1 Basophils % 0.5 Blood Morphology Comment Blood Urea Nitrogen 17 Calcium Level 9.9 Carbon Dioxide Level 27 Chloride Level 98 Creatinine 2.36 H Eosinophils # 0.0 Eosinophils % 0.0 Glucose Level 140 # Hematocrit 34.5 L Hemoglobin 11.6 L Lymphocytes # 1.1 Lymphocytes % 10.8 L Magnesium Level 2.0 Mean Corpuscular Hemoglobin 31.1 Mean Corpuscular Hemoglobin Concent 33.5 Mean Corpuscular Volume 92.9 Mean Platelet Volume 8.6 Monocytes # 0.6 Monocytes % 6.3 Neutrophils # 8.3 H Neutrophils % 82.4 H Nucleated Red Blood Cells # 0.0 Nucleated Red Blood Cells % 0.0 Phosphorus Level 3.1 Platelet Count 149 Potassium Level 4.0 Random Vancomycin Level 14.1 Red Blood Count 3.72 L Red Cell Distribution Width 18.3 H Sodium Level 138 White Blood Count 10.1 Test 08/05/16 08:16 08/05/16 13:34 08/05/16 16:58 Bedside Glucose 137 118 104 Medications Medications Current Medications Ondansetron HCl (Zofran Inj) 4 mg Q6H PRN IV NAUSEA AND/OR VOMITING; Start 08/03 at 13:00 Aspirin (Aspirin) 81 mg DAILY PO Last administered on 08/05/16 08:17; Admin Dose 81 MG; Start 08/04/16 at 09:00 Clopidogrel Bisulfate (plaVIX) 75 mg DAILY PO Last administered on 08/05/16 08: 17; Admin Dose 75 MG; Start 08/04/16 at 09:00 Nitroglycerin (Nitroglycerin (Sl Tab) 0.4 Mg) 1 tab Q5M PRN SL CHEST PAIN; Start 08/03/16 at 13:00 Acetaminophen (Tylenol Tab) 650 mg Q6H PRN PO PAIN LEVEL 1-3 OR FEVER Last administered on 08/05/16 08:18; Admin Dose 650 MG; Start 08/03/16 at 13:00 Docusate Sodium (Colace) 100 mg Q12H PRN PO CONSTIPATION; Start 08/03/16 at 13: 00 Pantoprazole (Protonix Iv) 40 mg DAILY@06 IV Last administered on 08/05/16 05: 51; Admin Dose 40 MG; Start 08/04/16 at 06:00 Heparin Sodium (Porcine) (Heparin (5000 Units/0.5 ml)) 5,000 unit Q12 SC Last administered on 08/05/16 08:29; Admin Dose 5,000 UNIT; Start 08/03/16 at 21:00 Hydroxychloroquine Sulfate (Plaquenil) 200 mg BID PO Last administered on 08:17; Admin Dose 200 MG; Start 08/03/16 at 21:00 Multivit/Ca Carb/ B Cmplx/FA/Prenat (Loretta-Owen) 1 tab DAILY PO Last administered on 08/05/16 08:17; Admin Dose 1 TAB; Start 08/04/16 at 09:00 Atorvastatin Calcium (Lipitor) 20 mg DAILY@21 PO Last administered on 08/04/16 20:52; Admin Dose 20 MG; Start 08/03/16 at 21:00 Miscellaneous Information 1 ea NOTE XX ; Start 08/03/16 at 13:00 Glucose (Glutose) 15 gm Q15M PRN PO DECREASED GLUCOSE; Start 08/03/16 at 13:00 Glucose (Glutose) 22.5 gm Q15M PRN PO DECREASED GLUCOSE; Start 08/03/16 at 13:00 Dextrose (D50w Syringe) 25 ml Q15M PRN IV DECREASED GLUCOSE Last administered on 08/04/16 22:47; Admin Dose 25 ML; Start 08/03/16 at 13:00 Dextrose (D50w Syringe) 50 ml Q15M PRN IV DECREASED GLUCOSE Last administered on 08/04/16 07:09; Admin Dose 50 ML; Start 08/03/16 at 13:00 Glucagon (Glucagen) 1 mg Q15M PRN IM DECREASED GLUCOSE; Start 08/03/16 at 13:00 Glucose 15 gm 15 gm Q15M PRN BUCCAL DECREASED GLUCOSE; Start 08/03/16 at 13:00 Aztreonam/Sodium Chloride (Azactam/NS) 50 ml @ 100 mls/hr Q12 IV Last administered on 08/05/16 08:38; Admin Dose 100 MLS/HR; Start 08/03/16 at 14:00 Acetaminophen 500 mg 500 mg Q4H PRN PO PAIN AND OR ELEVATED TEMP; Start at 20:00 Sodium Chloride 77 meq/Dextrose 1,019.25 ml @ 40 mls/hr Q24H IV Last administered on 08/05/16 05:47; Admin Dose 40 MLS/HR; Start 08/03/16 at 20:30 Propofol (Diprivan) 100 ml @ 1.83 mls/hr Q12H IV Last administered on 03:44; Admin Dose 10.98 MLS/HR; Start 08/03/16 at 21:30 Hydralazine HCl (Apresoline) 20 mg Q6H PRN IV ELEVATED SYSTOLIC BP Last administered on 08/05/16 16:57; Admin Dose 20 MG; Start 08/05/16 at 01:30 Lorazepam 0.5 mg 0.5 mg Q6H PRN IV AGITATION/ANXIETY; Start 08/05/16 at 01:30 Vancomycin HCl/ Sodium Chloride (Vancocin/NS) 150 ml @ 75 mls/hr 15 IVPB Last administered on 08/05/16 16:58; Admin Dose 75 MLS/HR; Start 08/05/16 at 15:00; Stop 08/05/16 at 23:00 MARINA ZEPEDA Aug 05, 2016 17:07
[2016-08-05] MEDS ORDERED: FLUCONAZOLE 100 MG/NS (PMX) 50 ML IVPB SCH (17:30)
[2016-08-05] MEDS: ATORVASTATIN 20 MG TAB PO SCH (21:12)
[2016-08-05] MEDS: FLUCONAZOLE 100 MG/NS (PMX) 50 ML IVPB SCH (21:12)
[2016-08-05 21:19] LABS: AADO2 Arterial 269.1 mmHg (7.0-24.0); Allen Test ACCEPTAB; Arterial Base Excess 0.9 mmol/L (-3.0-3); Arterial COHb 0.2 % (0.0-3.0); Arterial Fraction of Oxyhgb 97.5 % (93.0-99.0); Arterial HCO3 25.2 mmol/L (22.0-26.0); Arterial MetHb 0.1 % (0.0-1.5); Blood Gas IEPAP 15/5; Blood Gas PS 10; MODE MASK - BIPAP
[2016-08-06] VITALS (36 sets, daily range): BP systolic 117–157; BP diastolic 29–65; PULSE 87–103; RESP 20–38
[2016-08-06 06:08] LABS: HEMATOCRIT 32.9 % (37.0-47.0); LYMPHOCYTES # 1.6 10^3/ul (0.8-2.9); LYMPHOCYTES % 15.4 % (15.0-51.0); MEAN CORPUSCULAR HEMOGLOBIN 30.9 pg (29.0-33.0); MEAN CORPUSCULAR HGB CONC 33.3 g/dl (32.0-37.0); MEAN CORPUSCULAR VOLUME 92.9 fl (82.0-101.0); MEAN PLATELET VOLUME 8.1 fl (7.4-10.4); MONOCYTE # 0.7 10^3/ul (0.3-0.9); MONOCYTES % 6.8 % (0.0-11.0); NEUTROPHIL # 7.9 10^3/ul (1.6-7.5); NEUTROPHILS % 77.8 % (39.0-77.0); PLATELET COUNT 179 10^3/UL (140-440); RED BLOOD COUNT 3.54 10^6/ul (4.20-5.40); RED CELL DISTRIBUTION WIDTH 17.5 % (11.5-14.5); UNCORRECTED WBC 10.1 10^3/ul (4.8-10.8); WHITE BLOOD COUNT 10.1 10^3/ul (4.8-10.8)
[2016-08-06] MEDS: PANTOPRAZOLE 40 MG INJ IV SCH (06:31)
[2016-08-06 06:36] LABS: CONDITION 1; LH ANALYZER COMMENTS 1
[2016-08-06] MEDS: LEVOTHYROXINE 100 MCG TAB PO SCH ×2 (07:05→08:07)
[2016-08-06 07:19] LABS: POTASSIUM 4.2 mmol/L (3.5-5.1)
[2016-08-06 07:21] LABS: CREATININE 3.58 mg/dl (0.44-1.00)
[2016-08-06 07:22] LABS: CALCIUM 10.1 mg/dl (8.4-10.2); PHOSPHORUS 3.8 mg/dl (2.5-4.9)
[2016-08-06] MEDS: INSULIN ASPART [NOVOLOG] 3 ML PEN SC SCH ×4 (07:35→21:00)
[2016-08-06] MEDS: SEVELAMER CARBONATE 0.8 GM PKT PO SCH ×3 (07:35→17:35)
--- NOTE | 2016-08-06 07:58 | RADRPT ---
PROCEDURE: XR Chest. CLINICAL INDICATION: Dyspnea TECHNIQUE: Single frontal chest x-ray. COMPARISON: 08/05/2016 FINDINGS: The patient is significantly rotated into the LPO/BALDWIN position. Significant increased vascular jalyn estion and interstitial opacification is seen scattered throughout the lungs, slightly worse when co mpared to the prior study. Increased density in the retrocardiac left lung base is stable. Heart si ze is indeterminate but likely mildly enlarged. Mediastinal silhouette is poorly evaluated due to p atient rotation. Postsurgical changes are identified with surgical clips. Aortic atherosclerotic v ascular calcifications are identified. Feeding tube seen going down into the stomach. There is a m etallic stent in the left upper medial chest, stable over time. A second metallic stent is seen in the left axillary space, also stable. IMPRESSION: 1. Increased vascular congestion and interstitial opacification throughout the lungs, mildly worse when compared to the previous study. 2. Cardiomegaly with aortic atherosclerotic vascular calcifications. 3. Limited study due to significant patient rotation at this time. 4. Increased density the retrocardiac left lung base, unchanged over time. 5. Elsewhere, the remainder of the examination is stable. RPTAT: PP .Sumanth Coronado MD, MD Date Time Electronically viewed and signed by .Sumanth Coronado MD, on 08/06/2016 07:58 .B/
[2016-08-06] MEDS: MULTIVIT/CA CARB/B CMPLX/FA TAB PO SCH (08:06)
[2016-08-06] MEDS: ASPIRIN 81 MG TAB PO SCH (08:06)
[2016-08-06] MEDS: AZTREONAM 0.5 GM in SOD CHLORIDE 0.9% 50 ML IV SCH (08:07)
[2016-08-06] MEDS: CLOPIDOGREL 75 MG TAB PO SCH (08:07)
[2016-08-06] MEDS: HYDROXYCHLOROQUINE 200 MG TAB PO SCH ×2 (08:07→21:46)
[2016-08-06] MEDS: HEPARIN 5,000 UNIT/0.5 ML SYG SC SCH ×2 (08:11→21:55)
[2016-08-06] MEDS: ACETAMINOPHEN 325 MG TAB PO PRN (08:23)
--- NOTE | 2016-08-06 08:30 | CONS ---
DATE OF ADMISSION: 08/03/2016 DATE OF CONSULTATION: INFECTIOUS DISEASE CONSULTATION REQUESTING PHYSICIAN: Fracisco Guillen MD ATTENDING PHYSICIAN: Armando Rojo MD HISTORY OF PRESENT ILLNESS: The patient is a 61-year-old female who has end-stage renal di sease as a result of systemic lupus erythematosus and diabetes. The patient was having dialysis on 08/03/2016 and became acutely short of breath after 30 minutes of dialysis. She was taken by 911 to the ER where she was found to have a pulse rate of 101 and elevated respirations. Chest x-ray reve aled increased interstitial markings compatible with congestive heart failure. The patient was diag nosed as having congestive heart failure due to volume overload. The patient was admitted to the in tensive care unit. She was not intubated, but she was treated with CPAP. She has begun treatment w ith vancomycin and aztreonam because she is allergic to penicillin and methotrexate. Her white coun t is 9500. Her arterial blood gas was 7.422, a pO2 of 48 and a pO2 of 91 on 40% O2. Hemo globin was 11.3 grams. Her A1c hemoglobin was 4.9. She was originally intubated and then extubated . A culture of the sputum grew Alessia albicans. Her MRSA test was negative. Her blood cultures a re negative. The patient has been afebrile and her white count has remained pretty much the same wi th the most recent one being 10,100. The patient is currently on BiPAP and is able to communicate, although not talk or explain at length any information. PAST MEDICAL HISTORY: End-stage renal disease, systemic lupus erythematosus, hyperlipidemia, hyper tension, diabetes, hypothyroidism, coronary artery disease with stenting, and cardiac arrhythmia pro bably atrial fibrillation as she is on amiodarone. ALLERGIES: SHE IS ALLERGIC TO PENICILLIN AND METHOTREXATE. PAST SURGICAL HISTORY: Have consisted of repair of vascular damage at the time of coronary artery c atheterization for damage to a pelvic artery. Stenting. MEDICATIONS: Include: 1. Hydralazine 20 mg every 6 hours. 2. Ativan 0.5 mg p.r.n. 3. Aspirin 81 mg daily. 4. Clopidogrel 75 mg daily. 5. Multiple vitamin 1 daily. 6. Levothyroxine 100 mcg daily. 7. Pantoprazole 40 mg daily. 8. Chloroquine sulfate 200 mg daily. 9. Atorvastatin 20 mg daily. S 10. Sevelamer carbonate 0.8 grams with meals. 11. Aztreonam every 12 hours 500 mg. 12. Vancomycin per pharmacy. As needed medication includin. Ondansetron. 2. Nitroglycerin. 3. Acetaminophen. 4. Docusate sodium. 5. Ipratropium bromide and albuterol inhalations. PHYSICAL EXAMINATION GENERAL: Reveals a frail appearing, but alert female who is wearing a very large CPAP mask . VITAL SIGNS: Currently has stable vital signs. HEENT: The pupils are equal, round and react to light. The mucous membranes appear to be moist lo oking through the mask. NECK: At 30 degrees, her jugular veins are distended, it is approximately 3 cm above the clavicle. There is a left-sided subclavian intravenous line which has a 5 cm area of erythema, but no tendern ess around it and induration. CHEST: Clear. HEART: Regular. There is no murmur. ABDOMEN: Soft. There are no palpable organs or masses. EXTREMITIES: Reveal no edema, cyanosis or clubbing. The patient's dialysis AV shunt is in the left arm and appears to be functional and there is a palpable buzz. INITIAL IMPRESSION: 1. IV site infection, left subclavian area. 2. Acute pulmonary edema. 3. Yeast pulmonary infection/colonization. 4. End-stage renal disease. 5. Systemic lupus erythematosus. 6. Hypertension. 7. Coronary artery disease with stents. 8. Hyperlipidemia. 9. Hypothyroidism. PLAN: Recommend obtain an influenza test. I would recommend discontinuing the IV site to another a adrian. Continue vancomycin, but discontinue aztreonam. Dictated By: Loreta BARRIENTOS/NTS Conf#: [id number] DID#: [id number]
[2016-08-06 08:35] LABS: AADO2 Arterial 210.5 mmHg (7.0-24.0); Allen Test ACCEPTAB; Arterial COHb 0.5 % (0.0-3.0); Arterial Fraction of Oxyhgb 92.9 % (93.0-99.0); Arterial HCO3 27.4 mmol/L (22.0-26.0); Arterial MetHb 0.1 % (0.0-1.5); MODE MASK - NRB
[2016-08-06] MEDS: LORAZEPAM 2 MG INJ IV PRN (08:59)
[2016-08-06] MEDS: PROPOFOL 100 ML IV SCH ×2 (09:10→21:30)
[2016-08-06] MEDS: SODIUM CHLORIDE 23.4% 77 MEQ in DEXTROSE 10% 1,000 ML IV SCH (10:30)
--- NOTE | 2016-08-06 10:39 | CONS ---
Date/Time of Note Date/Time of Note DATE: 08/06/16 TIME: 10:38 Consult Date/Type/Reason Admit Date/Time Aug 03, 2016 at 18:48 Type of Consultation: pulmonary Subjective still with significant shortness of breath Change to high flow O2 at 20 L/m 40% FiO2 off Noninvasive positive pressure ventilation Objective Vital Signs Date Time Temp Pulse Resp B/P Pulse Ox O2 Delivery O2 Flow Rate FiO2 08/06/16 10:00 103 28 121/35 100 High Flow 08/06/16 08:05 45 08/06/16 07:00 98.7 08/04/16 23:08 15.0 Intake and Output 08/05/16 08/05/16 08/06/16 15:00 23:00 07:00 Intake Total 330 ml 460 ml 320 ml Output Total 0 ml 0 ml 0 ml Balance 330 ml 460 ml 320 ml GENERAL: Elderly lady appears comfortable at rest VITAL SIGNS: per chart NECK: Supple. No JVD or lymphadenopathy. CARDIAC EXAM: S1, S2. No added sounds or murmurs. CHEST: Diminished air entry bilaterally with expiratory wheezes ABDOMEN: Soft, nontender. No guarding or rebound. EXTREMITIES: No cyanosis, clubbing or edema. NEUROLOGIC: Generalized weakness. No focal deficits. Results/Medications Result Diagram: 08/06/16 0535 08/06/16 0535 Results 24 hrs Laboratory Tests Test 08/05/16 13:34 08/05/16 16:58 08/05/16 20:33 08/05/16 21:09 Bedside Glucose 118 104 112 Arterial Blood HCO3 25.2 Arterial Blood Base Excess 0.9 Arterial Blood Oxygen Saturation 97.8 Keyur Test ACCEPTAB Arterial Blood Gas Puncture Site Right Radial Arterial Blood Carboxyhemoglobin 0.2 Arterial Blood Date Drawn 08/05/2016 9:00:44 PM Arterial Blood Methemoglobin 0.1 Arterial Blood pCO2 (Temp correct) 39.3 Arterial Blood pH (Temp corrected) 7.425 Arterial Blood pO2 (Temp corrected) 115.5 H Blood Gas A-a O2 Differential 269.1 H Blood Gas Actual Respiration Rate 43 Blood Gas IPAP/EPAP Ratio 15/5 Blood Gas Modality MASK - BIPAP Blood Gas Notified Time 08/05/2016 9:19:42 PM Blood Gas Notified Whom MA Blood Gas Pressure Support 10 Blood Gas Respiration Rate 12.0 Blood Gas Specimen Source Blood arterial Blood Gas Temperature 37.0 FiO2 60.0 Oxyhemoglobin Percent 97.5 Total Hemoglobin 13.0 Test 08/06/16 05:35 08/06/16 07:00 08/06/16 07:39 Anion Gap 19 H Basophils # 0.0 Basophils % 0.0 Blood Morphology Comment Blood Urea Nitrogen 30 #H Calcium Level 10.1 Carbon Dioxide Level 25 Chloride Level 97 Creatinine 3.58 #H Eosinophils # 0.0 Eosinophils % 0.0 Glucose Level 132 Hematocrit 32.9 L Hemoglobin 11.0 L Lymphocytes # 1.6 Lymphocytes % 15.4 Magnesium Level 2.0 Mean Corpuscular Hemoglobin 30.9 Mean Corpuscular Hemoglobin Concent 33.3 Mean Corpuscular Volume 92.9 Mean Platelet Volume 8.1 Monocytes # 0.7 Monocytes % 6.8 Neutrophils # 7.9 H Neutrophils % 77.8 H Nucleated Red Blood Cells # 0.0 Nucleated Red Blood Cells % 0.0 Phosphorus Level 3.8 Platelet Count 179 # Potassium Level 4.2 Red Blood Count 3.54 L Red Cell Distribution Width 17.5 H Sodium Level 137 White Blood Count 10.1 Arterial Blood HCO3 27.4 H Arterial Blood Base Excess 4.0 H Arterial Blood Oxygen Saturation 93.5 L Keyur Test ACCEPTAB Arterial Blood Gas Puncture Site Right Radial Arterial Blood Carboxyhemoglobin 0.5 Arterial Blood Date Drawn 08/06/2016 7:50:25 AM Arterial Blood Methemoglobin 0.1 Arterial Blood pCO2 (Temp correct) 37.0 Arterial Blood pH (Temp corrected) 7.488 H Arterial Blood pO2 (Temp corrected) 68.3 L Blood Gas A-a O2 Differential 210.5 H Blood Gas Modality MASK - NRB Blood Gas Notified Time 08/06/2016 8:35:34 AM Blood Gas Notified Whom JLD Blood Gas Specimen Source Blood arterial Blood Gas Temperature 37.0 FiO2 45.0 Oxyhemoglobin Percent 92.9 L Total Hemoglobin 11.0 L Bedside Glucose 131 Medications Current Medications Ondansetron HCl (Zofran Inj) 4 mg Q6H PRN IV NAUSEA AND/OR VOMITING; Start 08/03 at 13:00 Aspirin (Aspirin) 81 mg DAILY PO Last administered on 08/06/16t 08:06; Admin Dose 81 MG; Start 08/04/16 at 09:00 Clopidogrel Bisulfate (plaVIX) 75 mg DAILY PO Last administered on 08/06/16 08: 07; Admin Dose 75 MG; Start 08/04/16 at 09:00 Nitroglycerin (Nitroglycerin (Sl Tab) 0.4 Mg) 1 tab Q5M PRN SL CHEST PAIN; Start 08/03/16 at 13:00 Acetaminophen (Tylenol Tab) 650 mg Q6H PRN PO PAIN LEVEL 1-3 OR FEVER Last administered on 08/06/16 08:23; Admin Dose 650 MG; Start 08/03/16 at 13:00 Docusate Sodium (Colace) 100 mg Q12H PRN PO CONSTIPATION; Start 08/03/16 at 13: 00 Pantoprazole (Protonix Iv) 40 mg DAILY@06 IV Last administered on 08/06/16 06: 31; Admin Dose 40 MG; Start 08/04/16 at 06:00 Heparin Sodium (Porcine) (Heparin (5000 Units/0.5 ml)) 5,000 unit Q12 SC Last administered on 08/06/16 08:11; Admin Dose 5,000 UNIT; Start 08/03/16 at 21:00 Hydroxychloroquine Sulfate (Plaquenil) 200 mg BID PO Last administered on 08:07; Admin Dose 200 MG; Start 08/03/16 at 21:00 Multivit/Ca Carb/ B Cmplx/FA/Prenat (Loretta-Owen) 1 tab DAILY PO Last administered on 08/06/16 08:06; Admin Dose 1 TAB; Start 08/04/16 at 09:00 Atorvastatin Calcium (Lipitor) 20 mg DAILY@21 PO Last administered on 08/05/16 21:12; Admin Dose 20 MG; Start 08/03/16 at 21:00 Miscellaneous Information 1 ea NOTE XX ; Start 08/03/16 at 13:00 Glucose (Glutose) 15 gm Q15M PRN PO DECREASED GLUCOSE; Start 08/03/16 at 13:00 Glucose (Glutose) 22.5 gm Q15M PRN PO DECREASED GLUCOSE; Start 08/03/16 at 13:00 Dextrose (D50w Syringe) 25 ml Q15M PRN IV DECREASED GLUCOSE Last administered on 08/04/16 22:47; Admin Dose 25 ML; Start 08/03/16 at 13:00 Dextrose (D50w Syringe) 50 ml Q15M PRN IV DECREASED GLUCOSE Last administered on 08/04/16 07:09; Admin Dose 50 ML; Start 08/03/16 at 13:00 Glucagon (Glucagen) 1 mg Q15M PRN IM DECREASED GLUCOSE; Start 08/03/16 at 13:00 Glucose 15 gm 15 gm Q15M PRN BUCCAL DECREASED GLUCOSE; Start 08/03/16 at 13:00 Aztreonam/Sodium Chloride (Azactam/NS) 50 ml @ 100 mls/hr Q12 IV Last administered on 08/06/16 08:07; Admin Dose 100 MLS/HR; Start 08/03/16 at 14:00 Acetaminophen 500 mg 500 mg Q4H PRN PO PAIN AND OR ELEVATED TEMP Last administered on 08/06/16 04:04; Admin Dose 500 MG; Start 08/03/16 at 20:00 Sodium Chloride 77 meq/Dextrose 1,019.25 ml @ 40 mls/hr Q24H IV Last administered on 08/06/16 10:30; Admin Dose 40 MLS/HR; Start 08/03/16 at 20:30 Propofol (Diprivan) 100 ml @ 1.83 mls/hr Q12H IV Last administered on 03:44; Admin Dose 10.98 MLS/HR; Start 08/03/16 at 21:30 Hydralazine HCl (Apresoline) 20 mg Q6H PRN IV ELEVATED SYSTOLIC BP Last administered on 08/05/16 16:57; Admin Dose 20 MG; Start 08/05/16 at 01:30 Lorazepam 0.5 mg 0.5 mg Q6H PRN IV AGITATION/ANXIETY Last administered on 08:59; Admin Dose 0.5 MG; Start 08/05/16 at 01:30 Fluconazole/ Sodium Chloride (Diflucan 100 Mg/ NS (Pmx)) 50 ml @ 50 mls/hr Q24H IVPB Last administered on 08/05/16 21:12; Admin Dose 50 MLS/HR; Start 08/05/16 at 21:00 Assessment/Plan Chief Complaint/Hosp Course IMPRESSION AND PLAN: 1. Acute hypoxemic respiratory failure, likely secondary to volume overload. 2. End-stage renal failure on hemodialysis. 3. History of coronary artery disease, questionable coronary ischemia. 4. History of diabetes. 5. History of hypertension. Patient will require: 1. Continue hemodialysis with volume removal 2. Continue high flow O2 3. Aspiration precautions speech therapy evaluation 4. Cardiology recommendations 5. DVT and GI prophylaxis. If she is stable off BiPAP she can be transferred to telemetry. Problems: JOY ROBERTS MD, [facility] Aug 06, 2016 10:39
[2016-08-06] MEDS: ALBUMIN HUMAN 25% 100 ML IV PRN ×2 (11:02→11:37)
--- NOTE | 2016-08-06 11:06 | PN ---
Date/Time of Note Date/Time of Note DATE: 08/06/16 TIME: 11:05 Assessment/Plan VTE Prophylaxis VTE Prophylaxis Intervention: SCD's Lines/Catheters IV C[facility]ter Type (from [facility]): Peripheral IV Urinary Cath still in place: No Assessment/Plan Assessment/Plan 1. Acute respiratory distress secondary to pulmonary edema and possible infiltrates. Dr. Morrissey is following in pulmonology consultation. Continue ventilator support. 2. Possible healthcare-acquired pneumonia. Continue aztreonam and vancomycin. Follow up on final sputum culture. 3. End-stage renal disease. Dr. Quintanilla following from nephrology standpoint. Continue hemodialysis. 4. Diabetes mellitus with patient being hypoglycemic. Continue to monitor blood sugar closely. Continue IV fluids with dextrose. 5. Possible sepsis. Continue antibiotics. Follow up on cultures. 6. Coronary artery disease. Continue Plavix and aspirin. 7. Lupus by history. Continue Plaquenil. 8. Hypothyroidism. TSH is 3.2. Continue Synthroid. 9. Hyperlipidemia. Continue Crestor. Continue sequential compression device for deep venous thrombosis prophylaxis and Protonix for peptic ulcer disease prophylaxis. Further recommendations based on clinical course. Total critical care time spent is 35 mins.Plan of care discussed with Dr. Rojo. Subjective 24 Hr Interval Summary Free Text/Dictation reamins on 100% o2, having HD now. dw staff. Constitutional: requiring IVF, requiring O2 Exam/Review of Systems Vital Signs Vitals Vital Signs Date Time Temp Pulse Resp B/P Pulse Ox O2 Delivery O2 Flow Rate FiO2 08/06/16 10:30 96 27 123/36 100 High Flow 08/06/16 08:05 45 08/06/16 07:00 98.7 08/04/16 23:08 15.0 Intake and Output 08/05/16 08/05/16 08/06/16 15:00 23:00 07:00 Intake Total 330 ml 460 ml 320 ml Output Total 0 ml 0 ml 0 ml Balance 330 ml 460 ml 320 ml Exam Constitutional: frail Head: atraumatic Eyes: nl sclera Neck: non-tender Respiratory: crackles/rales, diminished breath sounds Cardiovascular: nl pulses Gastrointestinal: non-tender, soft Extremities: other Neurological: lethargic Skin: other Results Result Diagram: 08/06/16 0535 08/06/16 0535 Results 24 hrs Laboratory Tests Test 08/05/16 13:34 08/05/16 16:58 08/05/16 20:33 08/05/16 21:09 Bedside Glucose 118 104 112 Arterial Blood HCO3 25.2 Arterial Blood Base Excess 0.9 Arterial Blood Oxygen Saturation 97.8 Keyur Test ACCEPTAB Arterial Blood Gas Puncture Site Right Radial Arterial Blood Carboxyhemoglobin 0.2 Arterial Blood Date Drawn 08/05/2016 9:00:44 PM Arterial Blood Methemoglobin 0.1 Arterial Blood pCO2 (Temp correct) 39.3 Arterial Blood pH (Temp corrected) 7.425 Arterial Blood pO2 (Temp corrected) 115.5 H Blood Gas A-a O2 Differential 269.1 H Blood Gas Actual Respiration Rate 43 Blood Gas IPAP/EPAP Ratio 15/ Blood Gas Modality MASK - BIPAP Blood Gas Notified Time 08/05/2016 9:19:42 PM Blood Gas Notified Whom MA Blood Gas Pressure Support 10 Blood Gas Respiration Rate 12.0 Blood Gas Specimen Source Blood arterial Blood Gas Temperature 37.0 FiO2 60.0 Oxyhemoglobin Percent 97.5 Total Hemoglobin 13.0 Test 08/06/16 05:35 08/06/16 07:00 08/06/16 07:39 Anion Gap 19 H Basophils # 0.0 Basophils % 0.0 Blood Morphology Comment Blood Urea Nitrogen 30 #H Calcium Level 10.1 Carbon Dioxide Level 25 Chloride Level 97 Creatinine 3.58 #H Eosinophils # 0.0 Eosinophils % 0.0 Glucose Level 132 Hematocrit 32.9 L Hemoglobin 11.0 L Lymphocytes # 1.6 Lymphocytes % 15.4 Magnesium Level 2.0 Mean Corpuscular Hemoglobin 30.9 Mean Corpuscular Hemoglobin Concent 33.3 Mean Corpuscular Volume 92.9 Mean Platelet Volume 8.1 Monocytes # 0.7 Monocytes % 6.8 Neutrophils # 7.9 H Neutrophils % 77.8 H Nucleated Red Blood Cells # 0.0 Nucleated Red Blood Cells % 0.0 Phosphorus Level 3.8 Platelet Count 179 # Potassium Level 4.2 Red Blood Count 3.54 L Red Cell Distribution Width 17.5 H Sodium Level 137 White Blood Count 10.1 Arterial Blood HCO3 27.4 H Arterial Blood Base Excess 4.0 H Arterial Blood Oxygen Saturation 93.5 L Keyur Test ACCEPTAB Arterial Blood Gas Puncture Site Right Radial Arterial Blood Carboxyhemoglobin 0.5 Arterial Blood Date Drawn 08/06/2016 7:50:25 AM Arterial Blood Methemoglobin 0.1 Arterial Blood pCO2 (Temp correct) 37.0 Arterial Blood pH (Temp corrected) 7.488 H Arterial Blood pO2 (Temp corrected) 68.3 L Blood Gas A-a O2 Differential 210.5 H Blood Gas Modality MASK - NRB Blood Gas Notified Time 08/06/2016 8:35:34 AM Blood Gas Notified Whom JLD Blood Gas Specimen Source Blood arterial Blood Gas Temperature 37.0 FiO2 45.0 Oxyhemoglobin Percent 92.9 L Total Hemoglobin 11.0 L Bedside Glucose 131 Medications Medications Current Medications Ondansetron HCl (Zofran Inj) 4 mg Q6H PRN IV NAUSEA AND/OR VOMITING; Start 08/03 at 13:00 Aspirin (Aspirin) 81 mg DAILY PO Last administered on 08/06/16 08:06; Admin Dose 81 MG; Start 08/04/16 at 09:00 Clopidogrel Bisulfate (plaVIX) 75 mg DAILY PO Last administered on 08/06/16 08: 07; Admin Dose 75 MG; Start 08/04/16 at 09:00 Nitroglycerin (Nitroglycerin (Sl Tab) 0.4 Mg) 1 tab Q5M PRN SL CHEST PAIN; Start 08/03/16 at 13:00 Acetaminophen (Tylenol Tab) 650 mg Q6H PRN PO PAIN LEVEL 1-3 OR FEVER Last administered on 08/06/16 08:23; Admin Dose 650 MG; Start 08/03/16 at 13:00 Docusate Sodium (Colace) 100 mg Q12H PRN PO CONSTIPATION; Start 08/03/16 at 13: 00 Pantoprazole (Protonix Iv) 40 mg DAILY@06 IV Last administered on 08/06/16 06: 31; Admin Dose 40 MG; Start 08/04/16 at 06:00 Heparin Sodium (Porcine) (Heparin (5000 Units/0.5 ml)) 5,000 unit Q12 SC Last administered on 08/06/16 08:11; Admin Dose 5,000 UNIT; Start 08/03/16 at 21:00 Hydroxychloroquine Sulfate (Plaquenil) 200 mg BID PO Last administered on 08:07; Admin Dose 200 MG; Start 08/03/16 at 21:00 Multivit/Ca Carb/ B Cmplx/FA/Prenat (Loretta-Owen) 1 tab DAILY PO Last administered on 08/06/16 08:06; Admin Dose 1 TAB; Start 08/04/16 at 09:00 Atorvastatin Calcium (Lipitor) 20 mg DAILY@21 PO Last administered on 08/05/16 21:12; Admin Dose 20 MG; Start 08/03/16 at 21:00 Miscellaneous Information 1 ea NOTE XX ; Start 08/03/16 at 13:00 Glucose (Glutose) 15 gm Q15M PRN PO DECREASED GLUCOSE; Start 08/03/16 at 13:00 Glucose (Glutose) 22.5 gm Q15M PRN PO DECREASED GLUCOSE; Start 08/03/16 at 13:00 Dextrose (D50w Syringe) 25 ml Q15M PRN IV DECREASED GLUCOSE Last administered on 08/04/16 22:47; Admin Dose 25 ML; Start 08/03/16 at 13:00 Dextrose (D50w Syringe) 50 ml Q15M PRN IV DECREASED GLUCOSE Last administered on 08/04/16 07:09; Admin Dose 50 ML; Start 08/03/16 at 13:00 Glucagon (Glucagen) 1 mg Q15M PRN IM DECREASED GLUCOSE; Start 08/03/16 at 13:00 Glucose 15 gm 15 gm Q15M PRN BUCCAL DECREASED GLUCOSE; Start 08/03/16 at 13:00 Aztreonam/Sodium Chloride (Azactam/NS) 50 ml @ 100 mls/hr Q12 IV Last administered on 08/06/16 08:07; Admin Dose 100 MLS/HR; Start 08/03/16 at 14:00 Acetaminophen 500 mg 500 mg Q4H PRN PO PAIN AND OR ELEVATED TEMP Last administered on 08/06/16 04:04; Admin Dose 500 MG; Start 08/03/16 at 20:00 Sodium Chloride 77 meq/Dextrose 1,019.25 ml @ 40 mls/hr Q24H IV Last administered on 08/06/16 10:30; Admin Dose 40 MLS/HR; Start 08/03/16 at 20:30 Propofol (Diprivan) 100 ml @ 1.83 mls/hr Q12H IV Last administered on 03:44; Admin Dose 10.98 MLS/HR; Start 08/03/16 at 21:30 Hydralazine HCl (Apresoline) 20 mg Q6H PRN IV ELEVATED SYSTOLIC BP Last administered on 08/05/16 16:57; Admin Dose 20 MG; Start 08/05/16 at 01:30 Lorazepam 0.5 mg 0.5 mg Q6H PRN IV AGITATION/ANXIETY Last administered on 08:59; Admin Dose 0.5 MG; Start 08/05/16 at 01:30 Fluconazole/ Sodium Chloride (Diflucan 100 Mg/ NS (Pmx)) 50 ml @ 50 mls/hr Q24H IVPB Last administered on 08/05/16 21:12; Admin Dose 50 MLS/HR; Start 08/05/16 at 21:00 DAVE POSADA Aug 06, 2016 11:06
--- NOTE | 2016-08-06 16:37 | PN ---
DATE: 08/06/2016 SUBJECTIVE: No acute changes. The patient is lying comfortably in bed. She is afebrile. Heart rate 92, respirations 20, blood pressure 127/39, saturation 100% on high flow. LABORATORY DATA: WBC 10.1, H and H 11 and 32.9, platelets 179, neutrophils 77.8. MICROBIOLOGY: Blood cultures remain negative. Nares swab negative. Sputum culture growing Alessia albicans. ANTIMICROBIALS: The patient is on: 1. Fluconazole. 2. Aztreonam. 3. Vancomycin. DIAGNOSTICS: Chest x-ray revealed increased vascular congestion. INDWELLINGS: Left upper extremity AV fistula. PHYSICAL EXAMINATION: GENERAL: This is a fragile, chronically ill, elderly woman who is lying comfortably in bed. HEENT: Head atraumatic, normocephalic. Sclerae anicteric. Buccal mucosa dry. NECK: Supple, trachea midline. CHEST: Rise symmetrical. Breath sounds diminished to bases. HEART: S1, S2. ABDOMEN: Soft. Bowel sounds present. EXTREMITIES: No cyanosis. ASSESSMENT: 1. Acute hypoxemic respiratory failure, likely secondary to fluid overload. 2. End-stage renal disease, hemodialysis dependent. 3. Positive sputum for Alessia albicans, remains on Diflucan. 4. History of coronary artery disease with stents. 5. Systemic lupus erythematosus. 6. 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 PLAN: The patient remains stable. She is being followed by multiple consultants. Cultures have been negative so far. Continue Diflucan. Anti- aspiration measures. Dictated By: DELIA GARAY STAFFING PROGRAM MANAGER for ANNY MAN/SAHRA Conf#: [id number] DID#: [id number] MTDChristopher
--- NOTE | 2016-08-06 17:20 | OPR ---
Date/Time of Note Date/Time of Note DATE: 08/06/16 TIME: 17:16 Operative Report Free Text/Dictation DATE OF OPERATION: 08/06/2016 SURGEON: Nasim Nair MD PREOPERATIVE DIAGNOSIS: ESRD POSTOPERATIVE DIAGNOSIS: same ANESTHESIA: Local BLOOD LOSS: minimal COMPLICATIONS: None. HEPARIN: None ACCESS: Left internal jugular vein CLOSURE: Manual compression & 3-0 Nylon suture INDICATIONS: This is a 61 year-old female with respiratory distress and ESRD with limited IV access central catheter. Patient family have been informed of the alternatives, risks, and benefits. Risks including but not limited to bleeding, thrombosis, embolization, myocardial infarction, , device malfunction, infection, pneumothorax, nephrotoxicity and patient has agreed to proceed. PROCEDURE: 1. Ultrasound guided access of left Internal Jugular Vein 2. Left internal jugular vein central catheter placement DESCRIPTION: The patient was in ICU bed and positioned in the supine position on the bed. Sedation was administered without complication. The neck and chest wall was shaved, prepped and draped in the standard sterile fashion. A time- out was completed verifying correct patient, procedure, site, positioning, implant and special equipment prior to beginning this procedure. Local anesthesia was infiltrated in the region of the right neck. Patients head was turned to the contralateral side. The catheter was flushed with saline to ensure function of each port. Landmarks were identified and an ultrasound machine was used to confirm the internal jugular vein. It was in its usual anatomic location, was patent, compressible, and had non-pulsatile venous blood flow. A central catheter kit was used. The skin and subcutaneous tissues were anesthetized with 10 ml of 1% lidocaine. Using a 16-g needle, the vein was punctured and the guidewire advanced under direct ultrasonic visualization. The guidewire advanced without resistance or difficulty. A skin preethi was made at the insertion site, and using Seldinger technique, a dilator was passed over the wire to dilate the subcutaneous tissue. The dilator was exchanged for the catheter and the catheter smoothly advanced. The guidewire was removed without difficulty, and the catheter ports were aspirated, flushed with saline, and capped without complication. Xray was performed and catheter position was adequate. And was satisfactory on X-ray. The catheter was secured with multiple 3-0 nylon sutures at the desired depth, and a dressing applied. The patient tolerated the procedure well and taken to recovery in fair condition. PLAN: May use the catheter NASIM NAIR MD Aug 06, 2016 17:20
--- NOTE | 2016-08-06 17:29 | RADRPT ---
PROCEDURE: XR Chest. CLINICAL INDICATION: Central line placement TECHNIQUE: A single portable view of the chest was obtained. COMPARISON: 08/06/2016 from 06:11 a.m. FINDINGS: A left internal jugular central venous catheter is seen with the tip at the junction of the left bra chiocephalic vein and SVC. A stent is once again seen in the left subclavian vein. A nasogastric t ube is unchanged. The aorta is tortuous and atherosclerotic. The cardiomediastinal silhouette is o therwise enlarged and is stable. Diffuse pulmonary vascular congestion is seen with likely underlyi ng pulmonary edema and is stable. Bilateral pleural effusions are again noted and are unchanged. The soft tissues and osseous structures demonstrate benign age related senescent changes. IMPRESSION: 1. Interval placement of a left internal jugular central venous catheter with the tip in the juncti on of the left brachiocephalic vein and SVC. 2. Radiographic findings of congestive heart failure again seen which is stable. RPTAT: HPNM Physician Stacey Date Time Electronically viewed and signed by Physician Stacey on 08/06/2016 17:29 /
--- NOTE | 2016-08-06 17:44 | CONS ---
DATE OF ADMISSION: 08/03/2016 DATE OF CONSULTATION: 08/06/2016 TYPE OF CONSULTATION: Vascular surgery consultation. Dear Doctors: Ms. Morales is a 61-year-old female with a history of end-stage renal disease on , Wednesday and Fridays, who was admitted secondary to shortness of breath and respiratory distres s. The patient it seems has been overloading requiring emergent dialysis for volume removal. At th e same time, the patient has had bilateral upper extremity access creations and limited for IV acces s. Vascular surgery consultation was obtained in order for central catheter placement. [place] [facility] [place], the patient has shortness of breath, mild distress. Denies nausea, vomiting. Has a nasogastric tube and denies lower extremity rest pain. REVIEW OF SYSTEMS: A 12-point review performed and negative except as mentioned in the HPI. PAST MEDICAL HISTORY: Entails hypertension, end-stage renal disease on Wednesday, Wednesday, Wednesday, d iabetes, lupus, bilateral lower extremity atherosclerotic disease, hypothyroidism. PAST SURGICAL HISTORY: Bilateral upper extremity AV fistula creations, multiple chest wall catheter s. SOCIAL HISTORY: Denies alcohol, tobacco or illicit drug use. FAMILY HISTORY: Coronary artery disease and diabetes. ALLERGIES: 1. METHOTREXATE. 2. PENICILLIN. PHYSICAL EXAMINATION: GENERAL: The patient is alert and oriented x3. HEENT: EOMI. Mucosa moist. Normocephalic, atraumatic. PERRLA. NECK: Supple. No carotid bruit. Nasogastric tube intact. CARDIOVASCULAR: S1, S2 present. No murmurs. PULMONARY: Coarse breath sounds bilaterally with crackles at the bases. ABDOMEN: Soft, nontender, nondistended. Bowel sounds positive. EXTREMITIES: Palpable femoral pulses, nonpalpable pedal pulses. Motor, sensory intact. Capillary refill 3 seconds. No ulcers identified. Left upper extremity with fistula, surgical scar is well healed. Palpable brachial pulse. Fistula with bruit and thrill present. ASSESSMENT AND PLAN: End-stage renal disease: It seems that the patient has a left upper extremity fistula that is currently functional and tolerating her dialysis sessions. From the family's conve rsation, it is unclear when the patient has had her fistula surveillance. We will therefore obtain a fistula ultrasound to bring the patient's status up to date. So far she has had no issues with he r dialysis sessions. As far as her acute hypoxemic respiratory failure, the patient is to continue with her pulmonary sup port and with her limited IV access, we will plan to place a non-tunneled central catheter. Discussed vascular optimization (BP meds, diet, nutrition, exercise, sugar control, antiplatelets). Discussed findings, plan and management with the patient and the family at the bedside and they unde rstand, with a certified header operator. Thank you for allowing us to partake in the care of your patient. Please call with any questions. Dictated By: FERMIN HEALY/SAHRA Conf#: [id number] DID#: [id number]
[2016-08-06] MEDS: morphine 2 MG INJ IV PRN (20:57)
[2016-08-06] MEDS: FLUCONAZOLE 100 MG/NS (PMX) 50 ML IVPB SCH (21:45)
[2016-08-06] MEDS: ATORVASTATIN 20 MG TAB PO SCH (21:45)
[2016-08-07] VITALS (35 sets, daily range): BP systolic 102–139; BP diastolic 22–58; PULSE 87–103; RESP 18–40
[2016-08-07] MEDS: LORAZEPAM 2 MG INJ IV PRN (01:47)
[2016-08-07 02:29] LABS: POTASSIUM 3.8 mmol/L (3.5-5.1)
[2016-08-07 02:32] LABS: MAGNESIUM 2.1 mg/dl (1.7-2.5)
[2016-08-07] MEDS: IPRATROPIUM (NEB) 0.5 MG/2.5 ML AMP HHN PRN (03:30)
[2016-08-07] MEDS: ALBUTEROL 0.083% (NEB) 2.5 MG/3 ML AMP HHN PRN (03:30)
[2016-08-07 03:57] LABS: AADO2 Arterial 394.9 mmHg (7.0-24.0); Arterial Base Excess 2.9 mmol/L (-3.0-3); Arterial COHb 0.5 % (0.0-3.0); Arterial Fraction of Oxyhgb 90.8 % (93.0-99.0); Arterial HCO3 26.8 mmol/L (22.0-26.0); Arterial MetHb 0.1 % (0.0-1.5); Arterial Total Hemglobin 11.8 g/dl (12.0-18.0); MODE HFNC
[2016-08-07] MEDS: morphine 2 MG INJ IV PRN ×2 (04:05→16:01)
--- NOTE | 2016-08-07 04:37 | RADRPT ---
PROCEDURE: XR Chest. CLINICAL INDICATION: shortness of breath TECHNIQUE: Portable single view of the chest COMPARISON: 08/06 FINDINGS: Left central line and nasogastric tubes remain in place. Median sternotomy wires and cardiomegaly a re again seen. There is increased alveolar infiltrate or edema throughout both lung suarez, particu larly the right upper lobe. No large effusion is seen. Left vascular stent is again seen. IMPRESSION: Worsening bilateral lung infiltrates which may be due to infection or edema. RPTAT: HLBE Gabriella Antoine Physician Date Time Electronically viewed and signed by Gabriella Antoine, Physician on 08/07/2016 04:37 LE/
[2016-08-07 05:08] LABS: ADD SCAN DIFF NO
[2016-08-07 05:28] LABS: BASOPHILS % 0.4 % (0.0-2.0); HEMATOCRIT 31.7 % (37.0-47.0); HEMOGLOBIN 10.3 g/dl (12.0-16.0); LYMPHOCYTES # 1.6 10^3/ul (0.8-2.9); LYMPHOCYTES % 14.4 % (15.0-51.0); MEAN CORPUSCULAR HEMOGLOBIN 30.5 pg (29.0-33.0); MEAN CORPUSCULAR HGB CONC 32.5 g/dl (32.0-37.0); MEAN CORPUSCULAR VOLUME 93.8 fl (82.0-101.0); MEAN PLATELET VOLUME 10.1 fl (7.4-10.4); MONOCYTE # 0.8 10^3/ul (0.3-0.9); MONOCYTES % 6.6 % (0.0-11.0); NEUTROPHIL # 8.8 10^3/ul (1.6-7.5); NEUTROPHILS % 77.9 % (39.0-77.0); PLATELET COUNT 199 10^3/UL (140-415); RED BLOOD COUNT 3.38 10^6/ul (4.20-5.40); RED CELL DISTRIBUTION WIDTH 17.3 % (11.5-14.5); WHITE BLOOD COUNT 11.3 10^3/ul (4.8-10.8)
[2016-08-07 05:33] LABS: ALBUMIN 3.9 g/dl (3.3-4.9)
[2016-08-07 05:34] LABS: POTASSIUM 3.9 mmol/L (3.5-5.1)
[2016-08-07 05:36] LABS: ALBUMIN/GLOBULIN RATIO 0.95; BILIRUBIN,DIRECT 0.2 mg/dl (0.00-0.20); BILIRUBIN,INDIRECT 0.7 mg/dl (0-1.1); BILIRUBIN,TOTAL 0.9 mg/dl (0.2-1.3); CREATININE 3.05 mg/dl (0.44-1.00)
[2016-08-07 05:37] LABS: CALCIUM 10.6 mg/dl (8.4-10.2)
[2016-08-07] MEDS: PANTOPRAZOLE 40 MG INJ IV SCH (06:02)
[2016-08-07] MEDS: LEVOTHYROXINE 100 MCG TAB PO SCH (08:36)
[2016-08-07] MEDS: HYDROXYCHLOROQUINE 200 MG TAB PO SCH ×2 (08:36→21:13)
[2016-08-07] MEDS: MULTIVIT/CA CARB/B CMPLX/FA TAB PO SCH (08:36)
[2016-08-07] MEDS: ASPIRIN 81 MG TAB PO SCH (08:36)
[2016-08-07] MEDS: SEVELAMER CARBONATE 0.8 GM PKT PO SCH ×3 (08:38→17:02)
[2016-08-07] MEDS: INSULIN ASPART [NOVOLOG] 3 ML PEN SC SCH ×4 (08:44→21:00)
[2016-08-07] MEDS: CLOPIDOGREL 75 MG TAB PO SCH (08:46)
[2016-08-07] MEDS: HEPARIN 5,000 UNIT/0.5 ML SYG SC SCH ×2 (08:48→21:20)
--- NOTE | 2016-08-07 09:17 | PN ---
Date/Time of Note Date/Time of Note DATE: 08/07/16 TIME: 09:12 Assessment/Plan VTE Prophylaxis VTE Prophylaxis Intervention: SCD's Lines/Catheters IV [facility]ter Type (from [facility]): Central Line Central line still needed: Yes Urinary Cath still in place: No Assessment/Plan Chief Complaint/Hosp Course ASSESSMENT: 1. Acute respiratory distress secondary to pulmonary edema and possible infiltrates. Dr. Morrissey is following in pulmonology consultation. 2. Possible healthcare-acquired pneumonia. Continue on Diflucan for yeast in sputum culture. 3. End-stage renal disease. Dr. Quintanilla following from nephrology standpoint. Continue hemodialysis. 4. Diabetes mellitus with patient being hypoglycemic. Continue to monitor blood sugar closely. Continue IV fluids with dextrose. 5. Possible sepsis. Continue antibiotics. Follow up on cultures. 6. Coronary artery disease. Continue Plavix and aspirin. 7. Lupus by history. Continue Plaquenil. 8. Hypothyroidism. TSH is 3.2. Continue Synthroid. 9. Hyperlipidemia. Continue Crestor. Continue sequential compression device for deep venous thrombosis prophylaxis and Protonix for peptic ulcer disease prophylaxis. Further recommendations based on clinical course. Plan of care discussed with Dr. Rojo. Problems: Subjective 24 Hr Interval Summary Free Text/Dictation Patient is awake alert, undergoing hemodialysis, continues on high flow oxygen, patient refused BiPAP per nurse. Exam/Review of Systems Vital Signs Vitals Vital Signs Date Time Temp Pulse Resp B/P Pulse Ox O2 Delivery O2 Flow Rate FiO2 08/07/16 07:31 100 100 08/07/16 06:00 97 30 126/37 High Flow 08/07/16 04:00 99.2 08/04/16 23:08 15.0 Intake and Output 08/06/16 08/06/16 08/07/16 15:00 23:00 07:00 Intake Total 1050 ml 370 ml 280 ml Output Total 3800 ml 0 ml 0 ml Balance -2750 ml 370 ml 280 ml Exam GENERAL: Well-developed, well-nourished elderly female, awake HEENT: Head is atraumatic, normocephalic. PERRLA. NECK: Supple, no cervical lymphadenopathy, no thyromegaly. CHEST: Lungs with diminished air entry bilaterally, scattered rhonchi bilaterally CARDIOVASCULAR: Normal S1, S2. No murmurs, gallops, clicks, rubs noted. ABDOMEN: Round, soft, nondistended, nontender. EXTREMITIES: Mild edema. No clubbing, cyanosis. Right upper extremity with arteriovenous fistula with palpable thrill and audible bruit. SKIN: There is no rash, petechiae noted. NEUROLOGIC: Awake alert Results Result Diagram: 08/07/16 0430 08/07/16 0430 Results 24 hrs Laboratory Tests Test 08/06/16 11:14 08/06/16 17:17 08/06/16 21:54 08/06/16 22:10 Bedside Glucose 123 152 169 Troponin I 0.051 Test 08/07/16 01:55 08/07/16 03:44 08/07/16 04:30 08/07/16 08:40 Magnesium Level 2.1 Potassium Level 3.8 3.9 Arterial Blood HCO3 26.8 H Arterial Blood Base Excess 2.9 Arterial Blood Oxygen Saturation 91.3 L Keyur Test N/A Arterial Blood Gas Puncture Site Right Brachial Arterial Blood Carboxyhemoglobin 0.5 Arterial Blood Date Drawn 08/07/2016 3:40:35 AM Arterial Blood Methemoglobin 0.1 Arterial Blood pCO2 (Temp correct) 38.6 Arterial Blood pH (Temp corrected) 7.459 H Arterial Blood pO2 (Temp corrected) 62.7 L Blood Gas A-a O2 Differential 394.9 H Blood Gas Modality [facility] Blood Gas Notified Time 08/07/2016 3:57:21 AM Blood Gas Notified Whom [place] Blood Gas Specimen Source Blood arterial Blood Gas Temperature 37.0 FiO2 70.0 Oxyhemoglobin Percent 90.8 L Total Hemoglobin 11.8 L Alanine Aminotransferase (ALT/SGPT) 20 Albumin 3.9 Albumin/Globulin Ratio 0.95 Alkaline Phosphatase 162 H Anion Gap 20 H Aspartate Amino Transf (AST/SGOT) 27 Basophils # 0.0 Basophils % 0.4 Blood Urea Nitrogen 23 H Calcium Level 10.6 H Carbon Dioxide Level 28 Chloride Level 97 Creatinine 3.05 H Direct Bilirubin 0.20 Eosinophils # 0.0 Eosinophils % 0.0 Globulin 4.10 H Glucose Level 155 Hematocrit 31.7 L Hemoglobin 10.3 L Indirect Bilirubin 0.7 Lymphocytes # 1.6 Lymphocytes % 14.4 L Mean Corpuscular Hemoglobin 30.5 Mean Corpuscular Hemoglobin Concent 32.5 Mean Corpuscular Volume 93.8 Mean Platelet Volume 10.1 # Monocytes # 0.8 Monocytes % 6.6 Neutrophils # 8.8 H Neutrophils % 77.9 H Nucleated Red Blood Cells # 0.0 Nucleated Red Blood Cells % 0.0 Platelet Count 199 Red Blood Count 3.38 L Red Cell Distribution Width 17.3 H Sodium Level 141 Total Bilirubin 0.9 Total Protein 8.0 Troponin I 0.046 White Blood Count 11.3 H Bedside Glucose 144 Medications Medications Current Medications Ondansetron HCl (Zofran Inj) 4 mg Q6H PRN IV NAUSEA AND/OR VOMITING; Start 08/03 at 13:00 Aspirin (Aspirin) 81 mg DAILY PO Last administered on 08/07/16 08:36; Admin Dose 81 MG; Start 08/04/16 at 09:00 Clopidogrel Bisulfate (plaVIX) 75 mg DAILY PO Last administered on 08/07/16 08 :46; Admin Dose 75 MG; Start 08/04/16 at 09:00 Nitroglycerin (Nitroglycerin (Sl Tab) 0.4 Mg) 1 tab Q5M PRN SL CHEST PAIN; Start 08/03/16 at 13:00 Acetaminophen (Tylenol Tab) 650 mg Q6H PRN PO PAIN LEVEL 1-3 OR FEVER Last administered on 08/06/16 08:23; Admin Dose 650 MG; Start 08/03/16 at 13:00 Docusate Sodium (Colace) 100 mg Q12H PRN PO CONSTIPATION; Start 08/03/16 at 13: 00 Pantoprazole (Protonix Iv) 40 mg DAILY@06 IV Last administered on 08/07/16 06: 02; Admin Dose 40 MG; Start 08/04/16 at 06:00 Heparin Sodium (Porcine) (Heparin (5000 Units/0.5 ml)) 5,000 unit Q12 SC Last administered on 08/07/16 08:48; Admin Dose 5,000 UNIT; Start 08/03/16 at 21:00 Hydroxychloroquine Sulfate (Plaquenil) 200 mg BID PO Last administered on 08:36; Admin Dose 200 MG; Start 08/03/16 at 21:00 Multivit/Ca Carb/ B Cmplx/FA/Prenat (Loretta-Owen) 1 tab DAILY PO Last administered on 08/07/16 08:36; Admin Dose 1 TAB; Start 08/04/16 at 09:00 Atorvastatin Calcium (Lipitor) 20 mg DAILY@21 PO Last administered on 08/06/16 21:45; Admin Dose 20 MG; Start 08/03/16 at 21:00 Miscellaneous Information 1 ea NOTE XX ; Start 08/03/16 at 13:00 Glucose (Glutose) 15 gm Q15M PRN PO DECREASED GLUCOSE; Start 08/03/16 at 13:00 Glucose (Glutose) 22.5 gm Q15M PRN PO DECREASED GLUCOSE; Start 08/03/16 at 13:00 Dextrose (D50w Syringe) 25 ml Q15M PRN IV DECREASED GLUCOSE Last administered on 08/04/16 22:47; Admin Dose 25 ML; Start 08/03/16 at 13:00 Dextrose (D50w Syringe) 50 ml Q15M PRN IV DECREASED GLUCOSE Last administered on 08/04/16 07:09; Admin Dose 50 ML; Start 08/03/16 at 13:00 Glucagon (Glucagen) 1 mg Q15M PRN IM DECREASED GLUCOSE; Start 08/03/16 at 13:00 Glucose (Glutose) 15 gm Q15M PRN BUCCAL DECREASED GLUCOSE; Start 08/03/16 at 13: 00 Acetaminophen 500 mg 500 mg Q4H PRN PO PAIN AND OR ELEVATED TEMP Last administered on 08/06/16 04:04; Admin Dose 500 MG; Start 08/03/16 at 20:00 Sodium Chloride 77 meq/Dextrose 1,019.25 ml @ 40 mls/hr Q24H IV Last administered on 08/06/16 10:30; Admin Dose 40 MLS/HR; Start 08/03/16 at 20:30 Propofol (Diprivan) 100 ml @ 1.83 mls/hr Q12H IV Last administered on 03:44; Admin Dose 10.98 MLS/HR; Start 08/03/16 at 21:30 Hydralazine HCl (Apresoline) 20 mg Q6H PRN IV ELEVATED SYSTOLIC BP Last administered on 08/05/16 16:57; Admin Dose 20 MG; Start 08/05/16 at 01:30 Lorazepam 0.5 mg 0.5 mg Q6H PRN IV AGITATION/ANXIETY Last administered on 01:47; Admin Dose 0.5 MG; Start 08/05/16 at 01:30 Fluconazole/ Sodium Chloride (Diflucan 100 Mg/ NS (Pmx)) 50 ml @ 50 mls/hr Q24H IVPB Last administered on 08/06/16 21:45; Admin Dose 50 MLS/HR; Start 08/05/16 at 21:00 Morphine Sulfate (morphine) 2 mg Q4H PRN IV PAIN Last administered on 04:05; Admin Dose 2 MG; Start 08/06/16 at 21:00 MARINA ZEPEDA Aug 07, 2016 09:17
[2016-08-07] MEDS: PROPOFOL 100 ML IV SCH ×2 (09:30→21:30)
--- NOTE | 2016-08-07 09:31 | RADRPT ---
PROCEDURE: US left upper extremity AV fistula/graft CLINICAL INDICATION: Renal failure TECHNIQUE: Multiple sonographic images of the left upper extremity arteries, veins and hemodialysi s access was obtained utilizing grayscale, color-flow, compressive sonography and doppler imaging. The images were reviewed on a PACS workstation. COMPARISON: None. FINDINGS: There is a left upper extremity AV fistula which is widely patent. There is a metallic stent in the left upper extremity AV fistula which is widely patent. Velocities, and measurements were obtained: Upper outflow vein: 334 cm/s; volume 185 ml/minute; diameter 2 mm Mid outflow vein: 141 cm/s; volume 936 ml/minute; diameter 7 mm Lower outflow vein: 316 cm/s; volume 1087 ml/minute; diameter 6 mm Arterial anastomosis: 298 cm/s, diameter 4 mm Inflow artery : 263 cm/s IMPRESSION: Focal stenosis in the upper outflow vein of the fistula with decreased volumes. Further evaluation with fistulogram and angioplasty is recommended. Widely patent stent in the proximal aspect of the fistula. RPTAT: AA .Brandin Kyle MD, MD Date Time Electronically viewed and signed by .Brandin Kyle MD, on 08/07/2016 09:30 .S/
--- NOTE | 2016-08-07 10:10 | CONS ---
Date/Time of Note Date/Time of Note DATE: 08/07/16 TIME: 10:07 Consult Date/Type/Reason Admit Date/Time Aug 03, 2016 at 18:48 Type of Consultation: pulmonary Subjective Less alert, on high flow o2 100% Having HD Objective Vital Signs Date Time Temp Pulse Resp B/P Pulse Ox O2 Delivery O2 Flow Rate FiO2 08/07/16 07:31 100 100 08/07/16 06:00 97 30 126/37 High Flow 08/07/16 04:00 99.2 08/04/16 23:08 15.0 Intake and Output 08/06/16 08/06/16 08/07/16 14:59 22:59 06:59 Intake Total 1050 ml 370 ml 320 ml Output Total 3800 ml 0 ml 0 ml Balance -2750 ml 370 ml 320 ml GENERAL: Elderly lady appears more somnolent. VITAL SIGNS: per chart NECK: Supple. No JVD or lymphadenopathy. CARDIAC EXAM: S1, S2. No added sounds or murmurs. CHEST: Diminished air entry bilaterally with expiratory wheezes ABDOMEN: Soft, nontender. No guarding or rebound. EXTREMITIES: No cyanosis, clubbing or edema. NEUROLOGIC: Generalized weakness. Results/Medications Result Diagram: 08/07/16 0430 08/07/16 0430 Results 24 hrs Laboratory Tests Test 08/06/16 11:14 08/06/16 17:17 08/06/16 21:54 08/06/16 22:10 Bedside Glucose 123 152 169 Troponin I 0.051 Test 08/07/16 01:55 08/07/16 03:44 08/07/16 04:30 08/07/16 08:40 Magnesium Level 2.1 Potassium Level 3.8 3.9 Arterial Blood HCO3 26.8 H Arterial Blood Base Excess 2.9 Arterial Blood Oxygen Saturation 91.3 L Keyur Test N/A Arterial Blood Gas Puncture Site Right Brachial Arterial Blood Carboxyhemoglobin 0.5 Arterial Blood Date Drawn 08/07/2016 3:40:35 AM Arterial Blood Methemoglobin 0.1 Arterial Blood pCO2 (Temp correct) 38.6 Arterial Blood pH (Temp corrected) 7.459 H Arterial Blood pO2 (Temp corrected) 62.7 L Blood Gas A-a O2 Differential 394.9 H Blood Gas Modality [facility] Blood Gas Notified Time 08/07/2016 3:57:21 AM Blood Gas Notified Whom [place] Blood Gas Specimen Source Blood arterial Blood Gas Temperature 37.0 FiO2 70.0 Oxyhemoglobin Percent 90.8 L Total Hemoglobin 11.8 L Alanine Aminotransferase (ALT/SGPT) 20 Albumin 3.9 Albumin/Globulin Ratio 0.95 Alkaline Phosphatase 162 H Anion Gap 20 H Aspartate Amino Transf (AST/SGOT) 27 Basophils # 0.0 Basophils % 0.4 Blood Urea Nitrogen 23 H Calcium Level 10.6 H Carbon Dioxide Level 28 Chloride Level 97 Creatinine 3.05 H Direct Bilirubin 0.20 Eosinophils # 0.0 Eosinophils % 0.0 Globulin 4.10 H Glucose Level 155 Hematocrit 31.7 L Hemoglobin 10.3 L Indirect Bilirubin 0.7 Lymphocytes # 1.6 Lymphocytes % 14.4 L Mean Corpuscular Hemoglobin 30.5 Mean Corpuscular Hemoglobin Concent 32.5 Mean Corpuscular Volume 93.8 Mean Platelet Volume 10.1 # Monocytes # 0.8 Monocytes % 6.6 Neutrophils # 8.8 H Neutrophils % 77.9 H Nucleated Red Blood Cells # 0.0 Nucleated Red Blood Cells % 0.0 Platelet Count 199 Red Blood Count 3.38 L Red Cell Distribution Width 17.3 H Sodium Level 141 Total Bilirubin 0.9 Total Protein 8.0 Troponin I 0.046 White Blood Count 11.3 H Bedside Glucose 144 Medications Current Medications Ondansetron HCl (Zofran Inj) 4 mg Q6H PRN IV NAUSEA AND/OR VOMITING; Start 08/03 at 13:00 Aspirin (Aspirin) 81 mg DAILY PO Last administered on 08/07/16 08:36; Admin Dose 81 MG; Start 08/04/16 at 09:00 Clopidogrel Bisulfate (plaVIX) 75 mg DAILY PO Last administered on 08/07/16 08 :46; Admin Dose 75 MG; Start 08/04/16 at 09:00 Nitroglycerin (Nitroglycerin (Sl Tab) 0.4 Mg) 1 tab Q5M PRN SL CHEST PAIN; Start 08/03/16 at 13:00 Acetaminophen (Tylenol Tab) 650 mg Q6H PRN PO PAIN LEVEL 1-3 OR FEVER Last administered on 08/06/16 08:23; Admin Dose 650 MG; Start 08/03/16 at 13:00 Docusate Sodium (Colace) 100 mg Q12H PRN PO CONSTIPATION; Start 08/03/16 at 13: 00 Pantoprazole (Protonix Iv) 40 mg DAILY@06 IV Last administered on 08/07/16 06: 02; Admin Dose 40 MG; Start 08/04/16 at 06:00 Heparin Sodium (Porcine) (Heparin (5000 Units/0.5 ml)) 5,000 unit Q12 SC Last administered on 08/07/16 08:48; Admin Dose 5,000 UNIT; Start 08/03/16 at 21:00 Hydroxychloroquine Sulfate (Plaquenil) 200 mg BID PO Last administered on 08:36; Admin Dose 200 MG; Start 08/03/16 at 21:00 Multivit/Ca Carb/ B Cmplx/FA/Prenat (Loretta-Owen) 1 tab DAILY PO Last administered on 08/07/16 08:36; Admin Dose 1 TAB; Start 08/04/16 at 09:00 Atorvastatin Calcium (Lipitor) 20 mg DAILY@21 PO Last administered on 08/06/16 21:45; Admin Dose 20 MG; Start 08/03/16 at 21:00 Miscellaneous Information 1 ea NOTE XX ; Start 08/03/16 at 13:00 Glucose (Glutose) 15 gm Q15M PRN PO DECREASED GLUCOSE; Start 08/03/16 at 13:00 Glucose (Glutose) 22.5 gm Q15M PRN PO DECREASED GLUCOSE; Start 08/03/16 at 13:00 Dextrose (D50w Syringe) 25 ml Q15M PRN IV DECREASED GLUCOSE Last administered on 08/04/16 22:47; Admin Dose 25 ML; Start 08/03/16 at 13:00 Dextrose (D50w Syringe) 50 ml Q15M PRN IV DECREASED GLUCOSE Last administered on 08/04/16 07:09; Admin Dose 50 ML; Start 08/03/16 at 13:00 Glucagon (Glucagen) 1 mg Q15M PRN IM DECREASED GLUCOSE; Start 08/03/16 at 13:00 Glucose (Glutose) 15 gm Q15M PRN BUCCAL DECREASED GLUCOSE; Start 08/03/16 at 13: 00 Acetaminophen 500 mg 500 mg Q4H PRN PO PAIN AND OR ELEVATED TEMP Last administered on 08/06/16 04:04; Admin Dose 500 MG; Start 2/6/17 at 20:00 Sodium Chloride 77 meq/Dextrose 1,019.25 ml @ 40 mls/hr Q24H IV Last administered on 08/06/16 10:30; Admin Dose 40 MLS/HR; Start 08/03/16 at 20:30 Propofol (Diprivan) 100 ml @ 1.83 mls/hr Q12H IV Last administered on 03:44; Admin Dose 10.98 MLS/HR; Start 08/03/16 at 21:30 Hydralazine HCl (Apresoline) 20 mg Q6H PRN IV ELEVATED SYSTOLIC BP Last administered on 08/05/16 16:57; Admin Dose 20 MG; Start 08/05/16 at 01:30 Lorazepam 0.5 mg 0.5 mg Q6H PRN IV AGITATION/ANXIETY Last administered on 01:47; Admin Dose 0.5 MG; Start 08/05/16 at 01:30 Fluconazole/ Sodium Chloride (Diflucan 100 Mg/ NS (Pmx)) 50 ml @ 50 mls/hr Q24H IVPB Last administered on 08/06/16 21:45; Admin Dose 50 MLS/HR; Start 08/05/16 at 21:00 Morphine Sulfate (morphine) 2 mg Q4H PRN IV PAIN Last administered on 04:05; Admin Dose 2 MG; Start 08/06/16 at 21:00 Assessment/Plan Chief Complaint/Hosp Course IMPRESSION AND PLAN: 1. Acute hypoxemic respiratory failure, likely secondary to volume overload. Possible pna component. 2. End-stage renal failure on hemodialysis. 3. History of coronary artery disease, questionable coronary ischemia. 4. History of diabetes. 5. History of hypertension. Patient will require: 1. Continue hemodialysis with volume removal 2. Continue high flow O2 3. Aspiration precautions speech therapy evaluation 4. Cardiology recommendations 5. DVT and GI prophylaxis. Prognosis very poor. Discussed with patients son. He is considering DNR Problems: JOY ROBERTS MD, FCCP Aug 07, 2016 10:10
--- NOTE | 2016-08-07 10:29 | CONS ---
Date/Time of Note Date/Time of Note DATE: 08/07/16 TIME: 10:28 Consultation Date/Type/Reason Admit Date/Time Aug 03, 2016 at 18:48 Constitutional: requiring IVF, requiring O2 Past Surgical History Past Surgical Hx: other Social History Smoking Status: Former smoker Exam/Review of Systems Vital Signs Vitals Vital Signs Date Time Temp Pulse Resp B/P Pulse Ox O2 Delivery O2 Flow Rate FiO2 08/07/16 10:00 93 20 120/29 100 High Flow 08/07/16 08:00 98.6 08/07/16 07:31 100 08/04/16 23:08 15.0 Intake and Output 08/06/16 08/06/16 08/07/16 15:00 23:00 07:00 Intake Total 1050 ml 370 ml 280 ml Output Total 3800 ml 0 ml 0 ml Balance -2750 ml 370 ml 280 ml Results Result Diagram: 08/07/16 0430 08/07/16 0430 Results 24 hrs Laboratory Tests Test 08/06/16 11:14 08/06/16 17:17 08/06/16 21:54 08/06/16 22:10 Bedside Glucose 123 152 169 Troponin I 0.051 Test 08/07/16 01:55 08/07/16 03:44 08/07/16 04:30 08/07/16 08:40 Magnesium Level 2.1 Potassium Level 3.8 3.9 Arterial Blood HCO3 26.8 H Arterial Blood Base Excess 2.9 Arterial Blood Oxygen Saturation 91.3 L Keyur Test N/A Arterial Blood Gas Puncture Site Right Brachial Arterial Blood Carboxyhemoglobin 0.5 Arterial Blood Date Drawn 08/07/2016 3:40:35 AM Arterial Blood Methemoglobin 0.1 Arterial Blood pCO2 (Temp correct) 38.6 Arterial Blood pH (Temp corrected) 7.459 H Arterial Blood pO2 (Temp corrected) 62.7 L Blood Gas A-a O2 Differential 394.9 H Blood Gas Modality [place] Blood Gas Notified Time 08/07/2016 3:57:21 AM Blood Gas Notified Whom CT Blood Gas Specimen Source Blood arterial Blood Gas Temperature 37.0 FiO2 70.0 Oxyhemoglobin Percent 90.8 L Total Hemoglobin 11.8 L Alanine Aminotransferase (ALT/SGPT) 20 Albumin 3.9 Albumin/Globulin Ratio 0.95 Alkaline Phosphatase 162 H Anion Gap 20 H Aspartate Amino Transf (AST/SGOT) 27 Basophils # 0.0 Basophils % 0.4 Blood Urea Nitrogen 23 H Calcium Level 10.6 H Carbon Dioxide Level 28 Chloride Level 97 Creatinine 3.05 H Direct Bilirubin 0.20 Eosinophils # 0.0 Eosinophils % 0.0 Globulin 4.10 H Glucose Level 155 Hematocrit 31.7 L Hemoglobin 10.3 L Indirect Bilirubin 0.7 Lymphocytes # 1.6 Lymphocytes % 14.4 L Mean Corpuscular Hemoglobin 30.5 Mean Corpuscular Hemoglobin Concent 32.5 Mean Corpuscular Volume 93.8 Mean Platelet Volume 10.1 # Monocytes # 0.8 Monocytes % 6.6 Neutrophils # 8.8 H Neutrophils % 77.9 H Nucleated Red Blood Cells # 0.0 Nucleated Red Blood Cells % 0.0 Platelet Count 199 Red Blood Count 3.38 L Red Cell Distribution Width 17.3 H Sodium Level 141 Total Bilirubin 0.9 Total Protein 8.0 Troponin I 0.046 White Blood Count 11.3 H Bedside Glucose 144 Medications Medications Current Medications Ondansetron HCl (Zofran Inj) 4 mg Q6H PRN IV NAUSEA AND/OR VOMITING; Start 08/03 at 13:00 Aspirin (Aspirin) 81 mg DAILY PO Last administered on 08/07/16 08:36; Admin Dose 81 MG; Start 08/04/16 at 09:00 Clopidogrel Bisulfate (plaVIX) 75 mg DAILY PO Last administered on 08/07/16 08 :46; Admin Dose 75 MG; Start 08/04/16 at 09:00 Nitroglycerin (Nitroglycerin (Sl Tab) 0.4 Mg) 1 tab Q5M PRN SL CHEST PAIN; Start 08/03/16 at 13:00 Acetaminophen (Tylenol Tab) 650 mg Q6H PRN PO PAIN LEVEL 1-3 OR FEVER Last administered on 08/06/16 08:23; Admin Dose 650 MG; Start 08/03/16 at 13:00 Docusate Sodium (Colace) 100 mg Q12H PRN PO CONSTIPATION; Start 08/03/16 at 13: 00 Pantoprazole (Protonix Iv) 40 mg DAILY@06 IV Last administered on 08/07/16 06: 02; Admin Dose 40 MG; Start 08/04/16 at 06:00 Heparin Sodium (Porcine) (Heparin (5000 Units/0.5 ml)) 5,000 unit Q12 SC Last administered on 08/07/16 08:48; Admin Dose 5,000 UNIT; Start 08/03/16 at 21:00 Hydroxychloroquine Sulfate (Plaquenil) 200 mg BID PO Last administered on 08:36; Admin Dose 200 MG; Start 08/03/16 at 21:00 Multivit/Ca Carb/ B Cmplx/FA/Prenat (Loretta-Owen) 1 tab DAILY PO Last administered on 08/07/16 08:36; Admin Dose 1 TAB; Start 08/04/16 at 09:00 Atorvastatin Calcium (Lipitor) 20 mg DAILY@21 PO Last administered on 08/06/16 21:45; Admin Dose 20 MG; Start 08/03/16 at 21:00 Miscellaneous Information 1 ea NOTE XX ; Start 08/03/16 at 13:00 Glucose (Glutose) 15 gm Q15M PRN PO DECREASED GLUCOSE; Start 08/03/16 at 13:00 Glucose (Glutose) 22.5 gm Q15M PRN PO DECREASED GLUCOSE; Start 08/03/16 at 13:00 Dextrose (D50w Syringe) 25 ml Q15M PRN IV DECREASED GLUCOSE Last administered on 08/04/16 22:47; Admin Dose 25 ML; Start 08/03/16 at 13:00 Dextrose (D50w Syringe) 50 ml Q15M PRN IV DECREASED GLUCOSE Last administered on 08/04/16 07:09; Admin Dose 50 ML; Start 08/03/16 at 13:00 Glucagon (Glucagen) 1 mg Q15M PRN IM DECREASED GLUCOSE; Start 08/03/16 at 13:00 Glucose (Glutose) 15 gm Q15M PRN BUCCAL DECREASED GLUCOSE; Start 08/03/16 at 13: 00 Acetaminophen 500 mg 500 mg Q4H PRN PO PAIN AND OR ELEVATED TEMP Last administered on 08/06/16 04:04; Admin Dose 500 MG; Start 08/03/16 at 20:00 Sodium Chloride 77 meq/Dextrose 1,019.25 ml @ 40 mls/hr Q24H IV Last administered on 08/06/16 10:30; Admin Dose 40 MLS/HR; Start 08/03/16 at 20:30 Propofol (Diprivan) 100 ml @ 1.83 mls/hr Q12H IV Last administered on 03:44; Admin Dose 10.98 MLS/HR; Start 08/03/16 at 21:30 Hydralazine HCl (Apresoline) 20 mg Q6H PRN IV ELEVATED SYSTOLIC BP Last administered on 08/05/16 16:57; Admin Dose 20 MG; Start 08/05/16 at 01:30 Lorazepam 0.5 mg 0.5 mg Q6H PRN IV AGITATION/ANXIETY Last administered on 01:47; Admin Dose 0.5 MG; Start 08/05/16 at 01:30 Fluconazole/ Sodium Chloride (Diflucan 100 Mg/ NS (Pmx)) 50 ml @ 50 mls/hr Q24H IVPB Last administered on 08/06/16 21:45; Admin Dose 50 MLS/HR; Start 08/05/16 at 21:00 Morphine Sulfate (morphine) 2 mg Q4H PRN IV PAIN Last administered on 04:05; Admin Dose 2 MG; Start 08/06/16 at 21:00 YUNG ZULETA MD Aug 07, 2016 10:29
[2016-08-07] MEDS ORDERED: VANCOMYCIN IV PER PHARMACY XX SCH (12:00)
[2016-08-07] MEDS ORDERED: AMIKACIN IV PER PHARMACY XX SCH (12:00)
--- NOTE | 2016-08-07 12:07 | PN ---
DATE: 08/07/2016 SUBJECTIVE: No acute changes. The patient is lying comfortably in bed. She is in hemodialysis. S he is arousable. Denies pain, discomfort. INDWELLINGS: Left upper extremity AV fistula, left IJ triple lumen catheter placed on 08/06/2016. MICROBIOLOGY: Sputum culture grew Alessia albicans. ANTIMICROBIALS: The patient is on fluconazole. DIAGNOSTICS: Chest x-ray revealed worsening bilateral infiltrates which may be due to infection or edema. PHYSICAL EXAMINATION: GENERAL: This is a fragile, chronically ill-appearing, elderly woman who is lying comfortably in be d. HEENT: Head atraumatic, normocephalic. Sclerae anicteric. Buccal mucosa dry. NECK: Supple, trachea midline. CHEST: Rise symmetrical. Breath sounds diminished at the bases. HEART: S1, S2. ABDOMEN: Soft, bowel tones present. EXTREMITIES: Without cyanosis. ASSESSMENT: 1. Acute hypoxemic respiratory failure, likely secondary to volume overload, rule out pneumonia. 2. Alessia albicans positive sputum, remains on Diflucan. 3. End-stage renal disease, hemodialysis dependent. 4. Diabetes. 5. History of infected sternal wound status post CABG, completed 6 weeks of antibiotics. PLAN: We are going to restart patient on vancomycin and also amikacin for concern of pneumonia. Co ntinue fluconazole. Continue hemodialysis per renal. Management per primary team and consultants. Dictated By: DELIA [employer] AD[employer] REPRESENTATIVE for ANNY MAN/NTS Conf#: [id number] DID#: [id number]
[2016-08-07] MEDS: SODIUM CHLORIDE 23.4% 77 MEQ in DEXTROSE 10% 1,000 ML IV SCH ×2 (13:20→20:30)
[2016-08-07] MEDS ORDERED: AMIKACIN 400 MG in SOD CHLORIDE 0.9% 100 ML IVPB ONE (15:00)
[2016-08-07] MEDS: EPOETIN 10000 UNITS/1 ML INJ (ESRD) SC SCH (15:26)
--- NOTE | 2016-08-07 17:18 | RADRPT ---
Vent Rate: 95 bpm RR Interval: 0 msec [place] Interval: 194 msec QRS Duration: 102 msec QT Interval: 428 msec QTC Interval: 537 msec P-R-T [place]: 12 - 70 - 0 degrees Normal sinus rhythm Nonspecific T wave abnormality Prolonged QT Abnormal ECG Electronically Signed By: Philip Estrada [id number]
[2016-08-07] MEDS: FLUCONAZOLE 100 MG/NS (PMX) 50 ML IVPB SCH (21:13)
[2016-08-07] MEDS: ATORVASTATIN 20 MG TAB PO SCH (21:13)
[2016-08-08] VITALS (33 sets, daily range): BP systolic 53–150; BP diastolic 11–61; PULSE 45–124; RESP 9–36
[2016-08-08] MEDS ORDERED: INSULIN ASPART [NOVOLOG] 3 ML PEN SC SCH (01:00)
[2016-08-08] MEDS: morphine 2 MG INJ IV PRN ×4 (01:10→16:32)
[2016-08-08] MEDS: Insulin NOVOLOG SS MILD Algorithm (NPO/TPN/ENTERAL FEEDS) SC SCH ×6 (01:16→21:00)
[2016-08-08] MEDS: PANTOPRAZOLE 40 MG INJ IV SCH (05:18)
[2016-08-08 05:45] LABS: ADD SCAN DIFF NO
[2016-08-08 05:56] LABS: BASOPHIL # 0.1 10^3/ul (0.0-0.1); BASOPHILS % 0.5 % (0.0-2.0); HEMATOCRIT 36.2 % (37.0-47.0); HEMOGLOBIN 11.5 g/dl (12.0-16.0); LYMPHOCYTES # 1.7 10^3/ul (0.8-2.9); LYMPHOCYTES % 12.1 % (15.0-51.0); MEAN CORPUSCULAR HEMOGLOBIN 30.2 pg (29.0-33.0); MEAN CORPUSCULAR HGB CONC 31.8 g/dl (32.0-37.0); MEAN PLATELET VOLUME 9.8 fl (7.4-10.4); MONOCYTE # 0.9 10^3/ul (0.3-0.9); MONOCYTES % 6.4 % (0.0-11.0); NEUTROPHIL # 11.4 10^3/ul (1.6-7.5); NEUTROPHILS % 80.2 % (39.0-77.0); PLATELET COUNT 229 10^3/UL (140-415); RED BLOOD COUNT 3.81 10^6/ul (4.20-5.40); RED CELL DISTRIBUTION WIDTH 17.2 % (11.5-14.5); WHITE BLOOD COUNT 14.3 10^3/ul (4.8-10.8)
[2016-08-08] MEDS ORDERED: AMIKACIN 250 MG in SOD CHLORIDE 0.9% 100 ML IVPB SCH (06:00)
[2016-08-08 06:18] LABS: POTASSIUM 3.4 mmol/L (3.5-5.1)
[2016-08-08] MEDS: LEVOTHYROXINE 100 MCG TAB PO SCH (06:20)
[2016-08-08 06:21] LABS: CREATININE 2.77 mg/dl (0.44-1.00)
[2016-08-08 06:22] LABS: CALCIUM 11.3 mg/dl (8.4-10.2)
[2016-08-08] MEDS: ASPIRIN 81 MG TAB PO SCH (08:07)
[2016-08-08] MEDS: MULTIVIT/CA CARB/B CMPLX/FA TAB PO SCH (08:07)
[2016-08-08] MEDS: SEVELAMER CARBONATE 0.8 GM PKT PO SCH ×3 (08:07→18:06)
[2016-08-08] MEDS: CLOPIDOGREL 75 MG TAB PO SCH (08:08)
[2016-08-08] MEDS: HYDROXYCHLOROQUINE 200 MG TAB PO SCH ×2 (08:08→21:00)
[2016-08-08] MEDS: HEPARIN 5,000 UNIT/0.5 ML SYG SC SCH ×2 (08:09→21:00)
[2016-08-08] MEDS: ACETAMINOPHEN 325 MG TAB PO PRN (08:53)
[2016-08-08] MEDS: LORAZEPAM 2 MG INJ IV PRN (08:53)
[2016-08-08] MEDS: IPRATROPIUM (NEB) 0.5 MG/2.5 ML AMP HHN PRN (09:16)
[2016-08-08] MEDS: ALBUTEROL 0.083% (NEB) 2.5 MG/3 ML AMP HHN PRN (09:16)
[2016-08-08] MEDS: PROPOFOL 100 ML IV SCH ×2 (09:30→21:30)
--- NOTE | 2016-08-08 10:22 | CONS ---
Date/Time of Note Date/Time of Note DATE: 08/08/16 TIME: 10:21 Assessment/Plan Assessment/Plan Chief Complaint/Hosp Course ID PROGRESS NOTE TOTAL ABX DAY # 24H INTERVAL SUMMARY * Lethargic, eyes open, minimally responsive, pending HD, VSS * O2 via NC @ 2L without dyspnea * INDWELLINGS: Left upper extremity AV fistula, left IJ triple lumen catheter placed on 08/06/2016. * MICROBIOLOGY: Sputum culture grew Alessia albicans. * DIAGNOSTICS: Chest x-ray revealed worsening bilateral infiltrates which may be due to infection or edema. PHYSICAL EXAMINATION: GENERAL: VSS, NAD HEENT: Unremarkable NECK: Trach CHEST: Rise symmetrical - Course BS HEART: RRR ABDOMEN: Soft, EXTREMITIES: Warm, ID ASSESSMENT: 61 yo F w/PMHx 1. Acute hypoxemic respiratory failure, likely secondary to volume overload, rule out pneumonia. 2. Alessia albicans positive sputum, remains on Diflucan. 3. End-stage renal disease, hemodialysis dependent. 4. Diabetes. 5. History of infected sternal wound status post CABG, completed 6 weeks of antibiotics. 6. SIRS w/Leukocytosis = due to HCAP (-)MRSA Nares ABX ALLERGIES: PCN, Methotrexate CURRENT ABX: Vanco IV + Amikacin + DIflucan ID RECOMMENDATIONS: Continue current ABX HD management of pulmonary edema . Problems: Consultation Date/Type/Reason Admit Date/Time Aug 03, 2016 at 18:48 Initial Consult Date Type of Consultation: ID Exam/Review of Systems Vital Signs Vitals Vital Signs Date Time Temp Pulse Resp B/P Pulse Ox O2 Delivery O2 Flow Rate FiO2 08/08/16 09:15 108 27 93 60 08/08/16 07:00 129/42 High Flow 08/08/16 01:00 98.0 08/04/16 23:08 15.0 Intake and Output 08/07/16 08/07/16 08/08/16 15:00 23:00 07:00 Intake Total 1550 ml 531.6 ml 490 ml Output Total 3500 ml 0 ml 0 ml Balance -1950 ml 531.6 ml 490 ml Results Result Diagram: 2/11/17 0510 08/08/16 0500 Results 24 hrs Laboratory Tests Test 08/07/16 11:57 08/07/16 15:08 08/07/16 17:01 08/07/16 21:15 Bedside Glucose 138 145 141 172 Test 08/08/16 01:13 08/08/16 03:11 08/08/16 05:00 08/08/16 05:10 Bedside Glucose 187 167 Anion Gap 19 H Blood Urea Nitrogen 25 H Calcium Level 11.3 H Carbon Dioxide Level 29 Chloride Level 102 Creatinine 2.77 H Glucose Level 199 Potassium Level 3.4 L Sodium Level 147 H Basophils # 0.1 Basophils % 0.5 Eosinophils # 0.0 Eosinophils % 0.0 Hematocrit 36.2 L Hemoglobin 11.5 L Lymphocytes # 1.7 Lymphocytes % 12.1 L Mean Corpuscular Hemoglobin 30.2 Mean Corpuscular Hemoglobin Concent 31.8 L Mean Corpuscular Volume 95.0 Mean Platelet Volume 9.8 Monocytes # 0.9 Monocytes % 6.4 Neutrophils # 11.4 H Neutrophils % 80.2 H Nucleated Red Blood Cells # 0.0 Nucleated Red Blood Cells % 0.0 Platelet Count 229 Red Blood Count 3.81 L Red Cell Distribution Width 17.2 H White Blood Count 14.3 #H Test 08/08/16 05:15 08/08/16 05:20 08/08/16 08:15 08/08/16 10:05 Bedside Glucose 198 187 191 Random Vancomycin Level 15.3 Medications Medications Current Medications Ondansetron HCl (Zofran Inj) 4 mg Q6H PRN IV NAUSEA AND/OR VOMITING; Start 08/03 at 13:00 Aspirin (Aspirin) 81 mg DAILY PO Last administered on 08/08/16 08:07; Admin Dose 81 MG; Start 08/04/16 at 09:00 Clopidogrel Bisulfate (plaVIX) 75 mg DAILY PO Last administered on 08/08/16 08 :08; Admin Dose 75 MG; Start 08/04/16 at 09:00 Nitroglycerin (Nitroglycerin (Sl Tab) 0.4 Mg) 1 tab Q5M PRN SL CHEST PAIN Last administered on 08/08/16 03:28; Admin Dose 1 TAB; Start 08/03/16 at 13:00 Acetaminophen (Tylenol Tab) 650 mg Q6H PRN PO PAIN LEVEL 1-3 OR FEVER Last administered on 08/08/16 08:53; Admin Dose 650 MG; Start 08/03/16 at 13:00 Docusate Sodium (Colace) 100 mg Q12H PRN PO CONSTIPATION; Start 08/03/16 at 13: 00 Pantoprazole (Protonix Iv) 40 mg DAILY@06 IV Last administered on 08/08/16 05: 18; Admin Dose 40 MG; Start 08/04/16 at 06:00 Heparin Sodium (Porcine) (Heparin (5000 Units/0.5 ml)) 5,000 unit Q12 SC Last administered on 08/08/16 08:09; Admin Dose 5,000 UNIT; Start 08/03/16 at 21:00 Hydroxychloroquine Sulfate (Plaquenil) 200 mg BID PO Last administered on 08:08; Admin Dose 200 MG; Start 08/03/16 at 21:00 Multivit/Ca Carb/ B Cmplx/FA/Prenat (Loretta-Owen) 1 tab DAILY PO Last administered on 08/08/16 08:07; Admin Dose 1 TAB; Start 08/04/16 at 09:00 Atorvastatin Calcium (Lipitor) 20 mg DAILY@21 PO Last administered on 21:13; Admin Dose 20 MG; Start 08/03/16 at 21:00 Miscellaneous Information 1 ea NOTE XX ; Start 08/03/16 at 13:00 Glucose (Glutose) 15 gm Q15M PRN PO DECREASED GLUCOSE; Start 08/03/16 at 13:00 Glucose (Glutose) 22.5 gm Q15M PRN PO DECREASED GLUCOSE; Start 08/03/16 at 13:00 Dextrose (D50w Syringe) 25 ml Q15M PRN IV DECREASED GLUCOSE Last administered on 08/04/16 22:47; Admin Dose 25 ML; Start 08/03/16 at 13:00 Dextrose (D50w Syringe) 50 ml Q15M PRN IV DECREASED GLUCOSE Last administered on 08/04/16 07:09; Admin Dose 50 ML; Start 08/03/16 at 13:00 Glucagon (Glucagen) 1 mg Q15M PRN IM DECREASED GLUCOSE; Start 08/03/16 at 13:00 Glucose (Glutose) 15 gm Q15M PRN BUCCAL DECREASED GLUCOSE; Start 08/03/16 at 13: 00 Acetaminophen 500 mg 500 mg Q4H PRN PO PAIN AND OR ELEVATED TEMP Last administered on 08/06/16 04:04; Admin Dose 500 MG; Start 08/03/16 at 20:00 Sodium Chloride 77 meq/Dextrose 1,019.25 ml @ 40 mls/hr Q24H IV Last administered on 08/07/16 13:20; Admin Dose 40 MLS/HR; Start 08/03/16 at 20:30 Propofol (Diprivan) 100 ml @ 1.83 mls/hr Q12H IV Last administered on 03:44; Admin Dose 10.98 MLS/HR; Start 08/03/16 at 21:30 Hydralazine HCl (Apresoline) 20 mg Q6H PRN IV ELEVATED SYSTOLIC BP Last administered on 08/05/16 16:57; Admin Dose 20 MG; Start 08/05/16 at 01:30 Lorazepam 0.5 mg 0.5 mg Q6H PRN IV AGITATION/ANXIETY Last administered on 08:53; Admin Dose 0.5 MG; Start 08/05/16 at 01:30 Fluconazole/ Sodium Chloride (Diflucan 100 Mg/ NS (Pmx)) 50 ml @ 50 mls/hr Q24H IVPB Last administered on 08/07/16 21:13; Admin Dose 50 MLS/HR; Start 08/05/16 at 21:00 Morphine Sulfate (morphine) 2 mg Q4H PRN IV PAIN Last administered on 07:39; Admin Dose 2 MG; Start 08/06/16 at 21:00 Amikacin Sulfate (Amikacin Iv Per Pharmacy) AMIKACIN PER PHARMACY NOTE XX ; Start 08/07/16 at 12:00 Miscellaneous Information (*Rx Drug Level Order Reminder*) 1 ONCE ONCE XX ; Start 08/08/16 at 05:00; Stop 08/08/16 at 05:01 Insulin Aspart (Adult SC Insulin - Mild Algorithm)... Q4 SC Last administered on 08/08/16 08:18; Admin Dose 2 UNIT; Start 08/08/16 at 01:00 Vancomycin HCl/ Sodium Chloride (Vancocin/NS) 150 ml @ 75 mls/hr Q96H IVPB ; Start 08/08/16 at 16:00 NATA PRAKASH NP Aug 08, 2016 10:22
[2016-08-08] MEDS: ALBUMIN HUMAN 25% 100 ML IV PRN ×2 (11:45→11:47)
[2016-08-08] MEDS: SODIUM CHLORIDE 23.4% 77 MEQ in DEXTROSE 10% 1,000 ML IV SCH (12:25)
--- NOTE | 2016-08-08 15:16 | PN ---
Date/Time of Note Date/Time of Note DATE: 08/08/16 TIME: 15:14 Assessment/Plan VTE Prophylaxis VTE Prophylaxis Intervention: other Lines/Catheters IV Catheter Type (from [facility]): Central Line Urinary Cath still in place: No Assessment/Plan Assessment/Plan 1. Acute respiratory distress secondary to pulmonary edema and possible infiltrates. Dr. Morrissey is following in pulmonology consultation. 2. Possible healthcare-acquired pneumonia. Continue on Diflucan for yeast in sputum culture. 3. End-stage renal disease. Dr. Quintanilla following from nephrology standpoint. Continue hemodialysis. 4. Diabetes mellitus with patient being hypoglycemic. Continue to monitor blood sugar closely. Continue IV fluids with dextrose. 5. Possible sepsis. Continue antibiotics. Follow up on cultures. 6. Coronary artery disease. Continue Plavix and aspirin. 7. Lupus by history. Continue Plaquenil. 8. Hypothyroidism. TSH is 3.2. Continue Synthroid. 9. Hyperlipidemia. Continue Crestor. Continue sequential compression device for deep venous thrombosis prophylaxis and Protonix for peptic ulcer disease prophylaxis. Further recommendations based on clinical course. Plan of care discussed with Dr. Rojo. Subjective 24 Hr Interval Summary Constitutional: requiring IVF, requiring O2 Exam/Review of Systems Vital Signs Vitals Vital Signs Date Time Temp Pulse Resp B/P Pulse Ox O2 Delivery O2 Flow Rate FiO2 08/08/16 14:00 107 29 119/25 96 High Flow 08/08/16 12:00 98.0 08/08/16 09:15 60 08/04/16 23:08 15.0 Intake and Output 08/07/16 08/07/16 08/08/16 15:00 23:00 07:00 Intake Total 1550 ml 531.6 ml 490 ml Output Total 3500 ml 0 ml 0 ml Balance -1950 ml 531.6 ml 490 ml Exam Constitutional: frail, non-verbal Eyes: nl sclera ENMT: nl external ears & nose Neck: non-tender Respiratory: diminished breath sounds Cardiovascular: nl pulses Gastrointestinal: non-tender, soft Extremities: normal pulses Neurological: lethargic Results Result Diagram: 08/08/16 0510 08/08/16 0500 Results 24 hrs Laboratory Tests Test 08/07/16 17:01 08/07/16 21:15 08/08/16 01:13 08/08/16 03:11 Bedside Glucose 141 172 187 167 Test 08/08/16 05:00 08/08/16 05:10 08/08/16 05:15 08/08/16 05:20 Anion Gap 19 H Blood Urea Nitrogen 25 H Calcium Level 11.3 H Carbon Dioxide Level 29 Chloride Level 102 Creatinine 2.77 H Glucose Level 199 Potassium Level 3.4 L Sodium Level 147 H Basophils # 0.1 Basophils % 0.5 Eosinophils # 0.0 Eosinophils % 0.0 Hematocrit 36.2 L Hemoglobin 11.5 L Lymphocytes # 1.7 Lymphocytes % 12.1 L Mean Corpuscular Hemoglobin 30.2 Mean Corpuscular Hemoglobin Concent 31.8 L Mean Corpuscular Volume 95.0 Mean Platelet Volume 9.8 Monocytes # 0.9 Monocytes % 6.4 Neutrophils # 11.4 H Neutrophils % 80.2 H Nucleated Red Blood Cells # 0.0 Nucleated Red Blood Cells % 0.0 Platelet Count 229 Red Blood Count 3.81 L Red Cell Distribution Width 17.2 H White Blood Count 14.3 #H Bedside Glucose 198 Random Vancomycin Level 15.3 Test 08/08/16 08:15 08/08/16 10:05 08/08/16 12:05 08/08/16 13:28 Bedside Glucose 187 191 189 204 Medications Medications Current Medications Ondansetron HCl (Zofran Inj) 4 mg Q6H PRN IV NAUSEA AND/OR VOMITING Last administered on 08/08/16 13:54; Admin Dose 4 MG; Start 08/03/16 at 13:00 Aspirin (Aspirin) 81 mg DAILY PO Last administered on 08/08/16 08:07; Admin Dose 81 MG; Start 08/04/16 at 09:00 Clopidogrel Bisulfate (plaVIX) 75 mg DAILY PO Last administered on 08/08/16 08 :08; Admin Dose 75 MG; Start 08/04/16 at 09:00 Nitroglycerin (Nitroglycerin (Sl Tab) 0.4 Mg) 1 tab Q5M PRN SL CHEST PAIN Last administered on 08/08/16 03:28; Admin Dose 1 TAB; Start 08/03/16 at 13:00 Acetaminophen (Tylenol Tab) 650 mg Q6H PRN PO PAIN LEVEL 1-3 OR FEVER Last administered on 08/08/16 08:53; Admin Dose 650 MG; Start 08/03/16 at 13:00 Docusate Sodium (Colace) 100 mg Q12H PRN PO CONSTIPATION; Start 08/03/16 at 13: 00 Pantoprazole (Protonix Iv) 40 mg DAILY@06 IV Last administered on 08/08/16 05: 18; Admin Dose 40 MG; Start 08/04/16 at 06:00 Heparin Sodium (Porcine) (Heparin (5000 Units/0.5 ml)) 5,000 unit Q12 SC Last administered on 08/08/16 08:09; Admin Dose 5,000 UNIT; Start 08/03/16 at 21:00 Hydroxychloroquine Sulfate (Plaquenil) 200 mg BID PO Last administered on 08:08; Admin Dose 200 MG; Start 08/03/16 at 21:00 Multivit/Ca Carb/ B Cmplx/FA/Prenat (Loretta-Owen) 1 tab DAILY PO Last administered on 08/08/16 08:07; Admin Dose 1 TAB; Start 08/04/16 at 09:00 Atorvastatin Calcium (Lipitor) 20 mg DAILY@21 PO Last administered on 21:13; Admin Dose 20 MG; Start 08/03/16 at 21:00 Miscellaneous Information 1 ea NOTE XX ; Start 08/03/16 at 13:00 Glucose (Glutose) 15 gm Q15M PRN PO DECREASED GLUCOSE; Start 08/03/16 at 13:00 Glucose (Glutose) 22.5 gm Q15M PRN PO DECREASED GLUCOSE; Start 08/03/16 at 13:00 Dextrose (D50w Syringe) 25 ml Q15M PRN IV DECREASED GLUCOSE Last administered on 08/04/16 22:47; Admin Dose 25 ML; Start 08/03/16 at 13:00 Dextrose (D50w Syringe) 50 ml Q15M PRN IV DECREASED GLUCOSE Last administered on 08/04/16 07:09; Admin Dose 50 ML; Start 08/03/16 at 13:00 Glucagon (Glucagen) 1 mg Q15M PRN IM DECREASED GLUCOSE; Start 08/03/16 at 13:00 Glucose (Glutose) 15 gm Q15M PRN BUCCAL DECREASED GLUCOSE; Start 08/03/16 at 13: 00 Acetaminophen 500 mg 500 mg Q4H PRN PO PAIN AND OR ELEVATED TEMP Last administered on 08/06/16 04:04; Admin Dose 500 MG; Start 08/03/16 at 20:00 Sodium Chloride 77 meq/Dextrose 1,019.25 ml @ 40 mls/hr Q24H IV Last administered on 08/08/16 12:25; Admin Dose 40 MLS/HR; Start 08/03/16 at 20:30 Propofol (Diprivan) 100 ml @ 1.83 mls/hr Q12H IV Last administered on 03:44; Admin Dose 10.98 MLS/HR; Start 08/03/16 at 21:30 Hydralazine HCl (Apresoline) 20 mg Q6H PRN IV ELEVATED SYSTOLIC BP Last administered on 08/05/16 16:57; Admin Dose 20 MG; Start 08/05/16 at 01:30 Lorazepam 0.5 mg 0.5 mg Q6H PRN IV AGITATION/ANXIETY Last administered on 08:53; Admin Dose 0.5 MG; Start 08/05/16 at 01:30 Fluconazole/ Sodium Chloride (Diflucan 100 Mg/ NS (Pmx)) 50 ml @ 50 mls/hr Q24H IVPB Last administered on 08/07/16 21:13; Admin Dose 50 MLS/HR; Start 08/05/16 at 21:00 Morphine Sulfate (morphine) 2 mg Q4H PRN IV PAIN Last administered on 12:22; Admin Dose 2 MG; Start 08/06/16 at 21:00 Amikacin Sulfate (Amikacin Iv Per Pharmacy) AMIKACIN PER PHARMACY NOTE XX ; Start 08/07/16 at 12:00 Miscellaneous Information (*Rx Drug Level Order Reminder*) 1 ONCE ONCE XX ; Start 08/08/16 at 05:00; Stop 08/08/16 at 05:01 Insulin Aspart (Adult SC Insulin - Mild Algorithm)... Q4 SC Last administered on 08/08/16 13:43; Admin Dose 2 UNIT; Start 08/08/16 at 01:00 Vancomycin HCl/ Sodium Chloride (Vancocin/NS) 150 ml @ 75 mls/hr Q96H IVPB Last administered on 08/08/16 15:06; Admin Dose 75 MLS/HR; Start 08/08/16 at 16 :00 DAVE POSADA Aug 08, 2016 15:16
[2016-08-08] MEDS ORDERED: POTASSIUM CHLORIDE 50 ML IVPB ONE (15:30)
[2016-08-08] MEDS ORDERED: VANCOMYCIN 750 MG in SOD CHLORIDE 0.9% 150 ML IVPB SCH (16:00)
[2016-08-08] MEDS: EPOETIN 10000 UNITS/1 ML INJ (ESRD) SC SCH (16:03)
--- NOTE | 2016-08-08 16:11 | CONS ---
Date/Time of Note Date/Time of Note DATE: 08/08/16 TIME: 16:07 Consult Date/Type/Reason Admit Date/Time Aug 03, 2016 at 18:48 Initial Consult Date Type of Consultation: pulm Subjective On high-flow nasal cannula with increased work of breathing and AMS Objective Vital Signs Date Time Temp Pulse Resp B/P Pulse Ox O2 Delivery O2 Flow Rate FiO2 08/08/16 15:00 115 33 138/38 98 High Flow 08/08/16 12:00 98.0 08/08/16 09:15 60 08/04/16 23:08 15.0 Intake and Output 08/07/16 08/07/16 08/08/16 15:00 23:00 07:00 Intake Total 1550 ml 531.6 ml 490 ml Output Total 3500 ml 0 ml 0 ml Balance -1950 ml 531.6 ml 490 ml NECK: Supple. No JVD or lymphadenopathy. CARDIAC EXAM: S1, S2. No added sounds or murmurs. CHEST: ++ R > L rhonchi ABDOMEN: Soft, nontender. No guarding or rebound. EXTREMITIES: No cyanosis, clubbing or edema. Results/Medications Result Diagram: 08/08/16 0510 08/08/16 0500 Results 24 hrs Laboratory Tests Test 08/07/16 17:01 08/07/16 21:15 08/08/16 01:13 08/08/16 03:11 Bedside Glucose 141 172 187 167 Test 08/08/16 05:00 08/08/16 05:10 08/08/16 05:15 08/08/16 05:20 Anion Gap 19 H Blood Urea Nitrogen 25 H Calcium Level 11.3 H Carbon Dioxide Level 29 Chloride Level 102 Creatinine 2.77 H Glucose Level 199 Potassium Level 3.4 L Sodium Level 147 H Basophils # 0.1 Basophils % 0.5 Eosinophils # 0.0 Eosinophils % 0.0 Hematocrit 36.2 L Hemoglobin 11.5 L Lymphocytes # 1.7 Lymphocytes % 12.1 L Mean Corpuscular Hemoglobin 30.2 Mean Corpuscular Hemoglobin Concent 31.8 L Mean Corpuscular Volume 95.0 Mean Platelet Volume 9.8 Monocytes # 0.9 Monocytes % 6.4 Neutrophils # 11.4 H Neutrophils % 80.2 H Nucleated Red Blood Cells # 0.0 Nucleated Red Blood Cells % 0.0 Platelet Count 229 Red Blood Count 3.81 L Red Cell Distribution Width 17.2 H White Blood Count 14.3 #H Bedside Glucose 198 Random Vancomycin Level 15.3 Test 08/08/16 08:15 08/08/16 10:05 08/08/16 12:05 08/08/16 13:28 Bedside Glucose 187 191 189 204 Medications Current Medications Ondansetron HCl (Zofran Inj) 4 mg Q6H PRN IV NAUSEA AND/OR VOMITING Last administered on 08/08/16 13:54; Admin Dose 4 MG; Start 08/03/16 at 13:00 Aspirin (Aspirin) 81 mg DAILY PO Last administered on 08/08/16 08:07; Admin Dose 81 MG; Start 08/04/16 at 09:00 Clopidogrel Bisulfate (plaVIX) 75 mg DAILY PO Last administered on 08/08/16 08 :08; Admin Dose 75 MG; Start 08/04/16 at 09:00 Nitroglycerin (Nitroglycerin (Sl Tab) 0.4 Mg) 1 tab Q5M PRN SL CHEST PAIN Last administered on 08/08/16 03:28; Admin Dose 1 TAB; Start 08/03/16 at 13:00 Acetaminophen (Tylenol Tab) 650 mg Q6H PRN PO PAIN LEVEL 1-3 OR FEVER Last administered on 08/08/16 08:53; Admin Dose 650 MG; Start 08/03/16 at 13:00 Docusate Sodium (Colace) 100 mg Q12H PRN PO CONSTIPATION; Start 08/03/16 at 13: 00 Pantoprazole (Protonix Iv) 40 mg DAILY@06 IV Last administered on 08/08/16 05: 18; Admin Dose 40 MG; Start 08/04/16 at 06:00 Heparin Sodium (Porcine) (Heparin (5000 Units/0.5 ml)) 5,000 unit Q12 SC Last administered on 08/08/16 08:09; Admin Dose 5,000 UNIT; Start 08/03/16 at 21:00 Hydroxychloroquine Sulfate (Plaquenil) 200 mg BID PO Last administered on 08:08; Admin Dose 200 MG; Start 08/03/16 at 21:00 Multivit/Ca Carb/ B Cmplx/FA/Prenat (Loretta-Owen) 1 tab DAILY PO Last administered on 08/08/16 08:07; Admin Dose 1 TAB; Start 08/04/16 at 09:00 Atorvastatin Calcium (Lipitor) 20 mg DAILY@21 PO Last administered on 21:13; Admin Dose 20 MG; Start 08/03/16 at 21:00 Miscellaneous Information 1 ea NOTE XX ; Start 08/03/16 at 13:00 Glucose (Glutose) 15 gm Q15M PRN PO DECREASED GLUCOSE; Start 08/03/16 at 13:00 Glucose (Glutose) 22.5 gm Q15M PRN PO DECREASED GLUCOSE; Start 08/03/16 at 13:00 Dextrose (D50w Syringe) 25 ml Q15M PRN IV DECREASED GLUCOSE Last administered on 08/04/16 22:47; Admin Dose 25 ML; Start 08/03/16 at 13:00 Dextrose (D50w Syringe) 50 ml Q15M PRN IV DECREASED GLUCOSE Last administered on 08/04/16 07:09; Admin Dose 50 ML; Start 08/03/16 at 13:00 Glucagon (Glucagen) 1 mg Q15M PRN IM DECREASED GLUCOSE; Start 08/03/16 at 13:00 Glucose (Glutose) 15 gm Q15M PRN BUCCAL DECREASED GLUCOSE; Start 08/03/16 at 13: 00 Acetaminophen 500 mg 500 mg Q4H PRN PO PAIN AND OR ELEVATED TEMP Last administered on 08/06/16 04:04; Admin Dose 500 MG; Start 08/03/16 at 20:00 Sodium Chloride 77 meq/Dextrose 1,019.25 ml @ 40 mls/hr Q24H IV Last administered on 08/08/16 12:25; Admin Dose 40 MLS/HR; Start 08/03/16 at 20:30 Propofol (Diprivan) 100 ml @ 1.83 mls/hr Q12H IV Last administered on 03:44; Admin Dose 10.98 MLS/HR; Start 08/03/16 at 21:30 Hydralazine HCl (Apresoline) 20 mg Q6H PRN IV ELEVATED SYSTOLIC BP Last administered on 08/05/16 16:57; Admin Dose 20 MG; Start 08/05/16 at 01:30 Lorazepam 0.5 mg 0.5 mg Q6H PRN IV AGITATION/ANXIETY Last administered on 08:53; Admin Dose 0.5 MG; Start 08/05/16 at 01:30 Fluconazole/ Sodium Chloride (Diflucan 100 Mg/ NS (Pmx)) 50 ml @ 50 mls/hr Q24H IVPB Last administered on 08/07/16 21:13; Admin Dose 50 MLS/HR; Start 08/05/16 at 21:00 Morphine Sulfate (morphine) 2 mg Q4H PRN IV PAIN Last administered on 12:22; Admin Dose 2 MG; Start 08/06/16 at 21:00 Amikacin Sulfate (Amikacin Iv Per Pharmacy) AMIKACIN PER PHARMACY NOTE XX ; Start 08/07/16 at 12:00 Miscellaneous Information (*Rx Drug Level Order Reminder*) 1 ONCE ONCE XX ; Start 08/08/16 at 05:00; Stop 08/08/16 at 05:01 Insulin Aspart (Adult SC Insulin - Mild Algorithm)... Q4 SC Last administered on 08/08/16 13:43; Admin Dose 2 UNIT; Start 08/08/16 at 01:00 Vancomycin HCl 750 mg/Sodium Chloride 150 ml @ 75 mls/hr Q96H IVPB Last administered on 08/08/16 15:06; Admin Dose 75 MLS/HR; Start 08/08/16 at 16:00 Potassium Chloride (KCl 10 MEQ/50 ML SW) 50 ml @ 50 mls/hr ONCE ONCE IVPB ; Start 08/08/16 at 15:30; Stop 08/08/16 at 16:29 Assessment/Plan Additional Assessment/Plan IMPRESSION: 1. Acute hypoxemic respiratory failure, likely secondary to volume overload. Possible pna component. 2. End-stage renal failure on hemodialysis. 3. History of coronary artery disease, questionable coronary ischemia. 4. History of diabetes. 5. History of hypertension. RECS: 1. Case discussed with family. Strongly urged them to consider transitioning to comfort measures. 2. Palliative care consult 3. Case d/w APPLICATIONS SALES REPRESENTATIVE and WILBERT SAUER MD Aug 08, 2016 16:11
[2016-08-08] MEDS: FLUCONAZOLE 100 MG/NS (PMX) 50 ML IVPB SCH (21:00)
[2016-08-08] MEDS: ATORVASTATIN 20 MG TAB PO SCH (21:00)
[2016-08-08] MEDS ORDERED: morphine 2 MG INJ IV PRN (21:30)
--- NOTE | 2016-08-09 09:26 | RADRPT ---
PROCEDURE: XR Chest. CLINICAL INDICATION: Shortness of breath. TECHNIQUE: Single frontal view. COMPARISON: 08/07/2016. FINDINGS: The nasogastric tube and left internal jugular vein catheter remain in satisfactory position. There are sternal wires. The heart is enlarged. There is calcification in the aorta consistent with ath erosclerosis. Bilateral air space and interstitial disease consistent with pulmonary edema is slightly improved. A left axillary region vascular stent is present. There is no pleural effusion. There is no pneumothorax. IMPRESSION: 1. Improved appearance of the lungs. 2. No other change from 08/07/2016. RPTAT: QQ .Bib Casillas MD, MD Date Time Electronically viewed and signed by .Bib Casillas MD, MD on 08/09/2016 09:25 .R/
--- NOTE | 2016-08-12 18:07 | DES ---
DATE OF ADMISSION: 08/03/2016 DATE OF : 08/09/2016 CAUSE OF : Atherosclerotic heart disease. OTHER DIAGNOSES: 1. septic shock. 2. End-stage renal disease. 3. Acute hypoxemic respiratory failure, possibly due to healthcare-acquired pneumonia. REASON FOR ADMISSION: The patient was a 61-year-old female with history of coronary artery disease, status post CABG few months ago which was complicated by sternal wound infection which was subsequently treated with long-term antibiotic, and the wound has healed. The patient also had end-stage renal disease on hemodialysis. The patient was brought into hospital due to shortness of breath. The patient was initially started on BiPAP, subsequently continued to decline and had to be intubated. The patient was diagnosed with CHF as well as healthcare facility-acquired pneumonia. The patient was treated with broad-spectrum IV antibiotic. The patient was seen by Dr. Manzano from infectious disease standpoint, Dr. Grace from pulmonary standpoint and Dr. Betts from nephrology standpoint. The patient was able to be extubated, however continued to require BiPAP and high-flow oxygen and had diminished p.o. intake and was being fed through NG tube. The patient's family called me on 04/2017 that they wanted her to be on comfort care. They had made her DNR also , so they did not want to pursue hemodialysis. The patient subsequently at 2245 on 08/08/2016 and was pronounced by RN. Dictated By: VERENA CEDENO/SAHRA Conf#: [id number] DID#: [id number]
== END 2016-08-09 05:16 | disposition expired | DRG 208 ==
LOC: E/R 04:26 → ICU 18:48
PROVIDERS: ADMIT Internal Medicine; ATTEND Internal Medicine
PROC: 5A1945Z Respiratory Ventilation, 24-96 Consecutive Hours (ICD-10-PCS; 2016-08-03)
PROC: 0BH17EZ Insertion of Endotracheal Airway into Trachea, Via Natural or Artificial Opening (ICD-10-PCS; 2016-08-03)
PROC: 5A1D60Z (ICD-10-PCS; principal; 2016-08-04)
PROC: 5A09357 Assistance with Respiratory Ventilation, Less than 24 Consecutive Hours, Continuous Positive Airway Pressure (ICD-10-PCS; 2016-08-04)
PROC: 05HN33Z Insertion of Infusion Device into Left Internal Jugular Vein, Percutaneous Approach (ICD-10-PCS; 2016-08-06)
DX: J96.01 Acute respiratory failure with hypoxia (principal); R65.21 Severe sepsis with septic shock; J18.9 Pneumonia, unspecified organism; B37.89 Other sites of candidiasis; M32.9 Systemic lupus erythematosus, unspecified; J81.1 Chronic pulmonary edema; I12.0 Hypertensive chronic kidney disease with stage 5 chronic kidney disease or end stage renal disease; N18.6 End stage renal disease; E11.9 Type 2 diabetes mellitus without complications; D63.1 Anemia in chronic kidney disease; Z66 Do not resuscitate; E03.9 Hypothyroidism, unspecified; Z95.5 Presence of coronary angioplasty implant and graft; Z87.891 Personal history of nicotine dependence; E78.5 Hyperlipidemia, unspecified; Z95.1 Presence of aortocoronary bypass graft; Z99.2 Dependence on renal dialysis
CPT/HCPCS: 31500; 36600; 71010; 80048; 80053; 80202; 82310; 82803; 82962; 83036; 83605; 83735; 83880; 84100; 84132; 84134; 84443; 84484; 85025; 85610; 85730; 87040; 87070; 87081; 89220; 90935; 92526; 92610; 93005; 93931; 94002; 94003; 94640; 94660; 94664; 94770; 96365; 96366; 96367; 96375; 96376; C1751; C9113; J0278; J0360; J0886; J1450; J1815; J2060; J2270; J2405; J3370; J3480; J7050; P9047